=== PATIENT | male | born 1960 | race Caucasian/White ===

== ENCOUNTER 2020-04-02 08:33 | Outpatient (REF) | payer MEDICARE, MEDICAID, SELFPAY ==
--- NOTE | 2020-04-02 | US_ITS ---
EXAMINATION: US ABDOMEN COMPLETE CLINICAL INFORMATION: Right upper quadrant pain. COMPARISON: MR abdomen without and with contrast dated 07/29/2017. CT abdomen and pelvis with intravenous contrast only dated 07/17/2017. Ultrasound abdomen complete dated 07/17/2017 and 07/24/2016. TECHNIQUE: Real-time imaging of the abdominal viscera. FINDINGS: PANCREAS: Most of the pancreas is obscured by overlying gas. ABDOMINAL AORTA: The proximal, mid, and distal segments are normal in caliber. There is atherosclerotic plaque seen in the abdominal aorta. INFERIOR VENA CAVA: Visualized portions are normal. LIVER: The liver is normal in size. The liver contour is normal. There is increased liver echogenicity. No focal hepatic lesion. There is no intrahepatic biliary duct dilatation seen. GALLBLADDER: Gallbladder wall thickness measures 0.2 cm. The gallbladder is physiologically distended without evidence of stones, sludge, polyps, wall thickening or pericholecystic fluid. COMMON BILE DUCT: Normal in caliber measuring 0.4 cm in diameter. 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 No hydronephrosis. No renal calculi or focal parenchymal lesions. The kidney measures 11.8 cm in maximum dimension. LEFT KIDNEY: No hydronephrosis. No renal calculi or focal parenchymal lesions. The kidney measures 12.8 cm in maximum dimension. SPLEEN: Normal. The spleen measures 12.3 cm in maximum dimension. FREE FLUID: None. IMPRESSION: 1. Hepatic steatosis without focal lesion. 2. 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 3. Small atherosclerotic plaque, abdominal aorta, without aneurysm.
== END 2020-04-02 08:34 | disposition home or self-care (01) ==
LOC: HO.US 08:33
PROVIDERS: PCP Pediatrics; Visit Provider Internal Medicine
DX: R10.11 Right upper quadrant pain (principal)
CPT/HCPCS: 76700

== ENCOUNTER 2020-06-29 23:03 | Emergency (ER) | payer MEDICARE, MEDICAID, SELFPAY ==
[2020-06-29 23:19] VITALS: BP 139/82; PULSE 92; RESP 16; TEMP 36.6; O2SAT 96; BMI 29.0
[2020-06-30 00:19] LABS: MANUAL DIFF FLAG NO
[2020-06-30 00:20] LABS: Basophils Percent Auto 0.5 % (0-2); Eosinophils Absolute Auto 0.2 X10*3/uL (0.0-0.4); Hematocrit 40.3 % (42-52); Hemoglobin 13.6 g/dl (14.0-18.0); Imm Gran Abs Auto 0.06 X10*3/uL (0.00-0.03); Imm Gran Pct Auto 0.8 % (0.0-0.4); Lymphocytes Absolute Auto 1.9 X10*3/uL (1.2-4.9); Lymphocytes Percent Auto 25.4 % (20-40); Mean Corpuscular HGB Conc 33.7 g/dl (31.0-36.0); Mean Corpuscular Hemoglobin 29.6 pg (27.0-33.0); Mean Corpuscular Volume 87.6 fL (80-98); Mean Platelet Volume 10.5 fL (9.4-12.4); Monocytes Absolute Auto 0.7 X10*3/uL (0.1-1.2); Monocytes Percent Auto 9.6 % (2-11); Neutrophils Absolute Auto 4.4 X10*3/uL (2.0-8.3); Neutrophils Percent Auto 60.7 % (45-73); Platelet Count 273 X10*3/uL (160-400); Red Cell Distribution Width 12.9 % (11.0-16.0); White Blood Count 7.3 X10*3/uL (4.8-10.8)
[2020-06-30 00:43] LABS: Anion Gap 13 (12-20); Blood Urea Nitrogen 22 mg/dL (9-16); Calcium 8.6 mg/dL (8.4-10.2); Carbon Dioxide 23 mmol/L (22-29); Chloride 108 mmol/L (96-108); Estimated Glomerular Filt Rate > 60; Glucose Random 193 mg/dL (60-115); Potassium 3.9 mmol/l (3.3-5.1); Sodium 140 mmol/L (135-145)
[2020-06-30 01:48] VITALS: BP 142/88; PULSE 76; RESP 16; TEMP 36.8; O2SAT 95
--- NOTE | 2020-06-30 01:49 | PC.NURSE ---
Pt ambulating from the waiting room to [facility] with a steady but slow gait. Pt is CAOx4, speaking full sentences, reports swelling and itching to left calf beginning Thursday with redness to posterior left calf starting Thursday. Pt using OTC creams with some relief. Swelling noted to extend down leg into ankle, +CMS. Pt denies pain, denies chance of insect bite, denies history of DVTs, denies fever. VSS. Awaiting primary MD hammonds. Labs obtained in Triage. Continue to monitor.
--- NOTE | 2020-06-30 02:25 | ED_ITS ---
HPI - General Adult General Chief complaint: General Medical Stated complaint: SWOLLEN LEFT LEG Time Seen by Provider: 06/30/20 02:25 Source: patient Mode of arrival: ambulatory History of Present Illness HPI narrative: Left lower leg swelling with rash to the posterior aspect of the lower and denies any fevers, shortness of breath, chest pain/palpitations. Related Data Previous Rx's Medication Instructions Recorded cephalexin 500 mg PO Q12H 5 Days #10 cap 06/30/20 Allergies Allergy/AdvReac Type Severity Reaction Status Date / Time No Known Allergies Allergy Unknown Verified 06/29/20 23:18 Review of Systems Review of Systems: Pertinent positives and negatives as stated in HPI and 10 review of systems is otherwise negative. [facility] Past Medical History Source: nursing notes reviewed Medical History Arthritis FH: total knee replacement High cholesterol Hypertension Social History Social History Advance Directives: No Advance Directives Information Provided: No Physical Exam Vital Signs: Vital Signs: Last Vital Signs Temp 98.5 F 06/30/20 04:00 Pulse 67 06/30/20 04:00 Resp 16 06/30/20 04:00 BP 143/86 H 06/30/20 04:00 Pulse Ox 95 06/30/20 04:00 Body Mass Index 29.0 VITAL SIGNS: Reviewed. GENERAL: Well developed, well nourished, in no acute distress. OROPHARYNX: no oral lesions noted, posterior pharynx clear and non-erythematous without noted tonsillar enlargement/erythema/exudates NECK: Supple, no adenopathy LUNGS: Normal breath sounds. No adventitious sounds or accessory muscle use. SpO2<95> CARDIOVASCULAR: Regular rate and rhythm without noted murmurs, no JVD or lower extremity edema. ABDOMEN: Soft, non-tender, non-distended with bowel sounds. No rigidity. No guarding. No palpable masses or hernias noted LEFT LOWER EXTREMITY: Noted swelling to the distal portion of the left lower extremity with good pulses and sensation, capillary refill less than 3 seconds and a localized rash to the calf area without erythematous streaking, induration, and no palpable cords. NEUROLOGIC: Alert and oriented x 4. Course Course Course Narrative: This is a 60-year-old male with history and clinical pre sentation concerning for possible DVT given the unilateral leg swelling. Review of all lab work and investigations negative for any acute findings and venous duplex is negative for any acute findings to suggest DVT. Patient received initial cephalexin and will be discharged home with a prescription for remainder course and instructed to follow up with the primary care provider for further outpatient evaluation and management. Medical Decision Making Lab Data Result diagrams: 06/30/20 00:12 06/30/20 00:12 Labs: Lab Results 06/30/20 06/30/20 Range/Units 00:12 00:12 WBC 7.3 (4.8-10.8) X10*3/uL RBC 4.60 (4.60-5.80) X10*6/uL Hgb 13.6 L (14.0-18.0) g/dl Hct 40.3 L (42-52) % MCV 87.6 (80-98) fL MCH 29.6 (27.0-33.0) pg MCHC 33.7 (31.0-36.0) g/dl RDW 12.9 (11.0-16.0) % Plt Count 273 (160-400) X10*3/uL MPV 10.5 (9.4-12.4) fL Immature Gran % (Auto) 0.8 H (0.0-0.4) % Neut % (Auto) 60.7 (45-73) % Lymph % (Auto) 25.4 (20-40) % [place] % (Auto) 9.6 (2-11) % Eos % (Auto) 3.0 (0-4) % Baso % (Auto) 0.5 (0-2) % Lymph # (Auto) 1.9 (1.2-4.9) X10*3/uL [place] # (Auto) 0.7 (0.1-1.2) X10*3/uL Eos # (Auto) 0.2 (0.0-0.4) X10*3/uL Baso # (Auto) 0.0 (0.0-0.2) X10*3/uL Abs Immat Gran (auto) 0.06 H (0.00-0.03) X10*3/uL Absolute Neuts (auto) 4.4 (2.0-8.3) X10*3/uL Absolute Nucleated RBC 0.000 (0.0-0.012) X10*3/uL Nucleated RBC % (auto) 0.0 (0.0-0.2) /100WBC Sodium 140 (135-145) mmol/L Potassium 3.9 (3.3-5.1) mmol/l Chloride 108 (96-108) mmol/L Carbon Dioxide 23 (22-29) mmol/L Anion Gap 13 (12-20) BUN 22 H (9-16) mg/dL Creatinine 1.06 (0.5-1.4) mg/dL Estim Creat Clear Calc 92.0 Estimated GFR > 60 Random Glucose 193 H (60-115) mg/dL Calcium 8.6 (8.4-10.2) mg/dL Discharge Plan Discharge Clinical Impression: Localized swelling of left lower extremity Patient Disposition: Home, Self-Care Instructions: Leg Edema (ED) Additional Instructions: 1. Please complete the entire course of antibiotics. 2. Please follow-up with your primary care provider by calling the office in the morning to set up a follow-up appointment. Prescriptions: New cephalexin 500 mg capsule 500 mg PO Q12H 5 Days Qty: 10 RF: 0 Referrals: Physician,Unknown [Primary Care Provider] - 2 days (Re-evaluation of left lower leg)
--- NOTE | 2020-06-30 02:27 | US_ITS ---
EXAMINATION: US VENOUS ULTRASOUND WITH DOPPLER LOWER EXTREMITY, LEFT CLINICAL INFORMATION: Swelling COMPARISON: None TECHNIQUE: Ultrasound of the deep veins is performed from the hip to the calf with compression sonography and color and pulse Doppler assessment. Spectral analysis with color-flow imaging is performed. FINDINGS: There is normal venous compression and respiratory variation and augmented flow. The visualized common femoral vein, superficial femoral vein, profunda femoral vein, popliteal vein, and the trifurcation region shows no evidence of deep venous thrombosis. There is no significant popliteal fossa cyst. A 0.8 cm (short axis) lymph node is present in the left inguinal region. Significant subcutaneous edema is present in the calf. If the patient's symptoms persist, followup ultrasound in 5 days 7 days might be of value to exclude proximal propagation from a non-visualized calf vein. US/US venous duplex LE IMPRESSION: No DVT demonstrated in the left lower extremity.
--- NOTE | 2020-06-30 02:57 | PC.NURSE ---
Pt off to U/S on hospital bed.
--- NOTE | 2020-06-30 03:15 | PC.NURSE ---
Pt returns from U/S without incident.
[2020-06-30] MEDS: cephALEXin 500 MG CAPSULE PO (03:58)
--- NOTE | 2020-06-30 03:59 | PC.NURSE ---
Pt medicated per AUG. VSS. Awaiting DC paperwork.
[2020-06-30 04:00] VITALS: BP 143/86; PULSE 67; RESP 16; TEMP 36.9; O2SAT 95
== END 2020-06-30 05:32 | disposition home or self-care (01) ==
PROVIDERS: Emergency Provider Student in an Organized Health Care Education/Training Program
DX: R60.0 Localized edema (principal)
CPT/HCPCS: 36415; 80048; 85025; 93971; 99284

== ENCOUNTER 2020-10-05 10:53 | Outpatient (REF) | payer MEDICARE, MEDICAID, SELFPAY ==
[2020-10-05 11:41] LABS: MANUAL DIFF FLAG NO
[2020-10-05 11:51] LABS: Basophils Absolute Auto 0.1 X10*3/uL (0.0-0.2); Basophils Percent Auto 0.6 % (0-2); Eosinophils Absolute Auto 0.1 X10*3/uL (0.0-0.4); Eosinophils Percent Auto 1.3 % (0-4); Hematocrit 45.7 % (42-52); Hemoglobin 15.1 g/dl (14.0-18.0); Imm Gran Abs Auto 0.05 X10*3/uL (0.00-0.03); Imm Gran Pct Auto 0.6 % (0.0-0.4); Lymphocytes Absolute Auto 1.6 X10*3/uL (1.2-4.9); Mean Corpuscular Hemoglobin 28.4 pg (27.0-33.0); Mean Corpuscular Volume 85.9 fL (80-98); Mean Platelet Volume 10.9 fL (9.4-12.4); Monocytes Absolute Auto 0.5 X10*3/uL (0.1-1.2); Monocytes Percent Auto 5.9 % (2-11); Neutrophils Absolute Auto 6.2 X10*3/uL (2.0-8.3); Neutrophils Percent Auto 72.6 % (45-73); Platelet Count 280 X10*3/uL (160-400); Red Blood Count 5.32 X10*6/uL (4.60-5.80); Red Cell Distribution Width 12.8 % (11.0-16.0); White Blood Count 8.5 X10*3/uL (4.8-10.8)
[2020-10-05 11:59] LABS: Glucose Urine UA NEG (NEG); Leukocyte Esterase Urine NEG (NEG); Nitrite Urine NEG (NEG); Specific Gravity - Urine 1.025 (1.005-1.025); Urine Blood NEG (NEG); Urine Ketones NEG (NEG); Urine Protein NEG (NEG-TRACE)
[2020-10-05 12:01] LABS: Appearance Urine CLEAR; Color Urine YELLOW
[2020-10-05 12:17] LABS: RBC Urine 0-2 /HPF (0); Squamous Epithelial Cell Urine TRACE /LPF; WBC Urine 0 /HPF (0-4)
[2020-10-05 12:18] LABS: Mucus Urine 1+ /LPF
[2020-10-05 12:36] LABS: Alanine Aminotransferase 46 U/L (0-40); Albumin Level 4.4 g/dL (3.5-5.0); Alkaline Phosphatase 95 U/L (39-117); Anion Gap 13 (12-20); Aspartate Amino Transferase 31 U/L (5-37); Bilirubin Total 0.7 mg/dL (0.0-1.0); Blood Urea Nitrogen 20 mg/dL (9-16); Calcium 9.6 mg/dL (8.4-10.2); Carbon Dioxide 24 mmol/L (22-29); Chloride 107 mmol/L (96-108); Cholesterol 230 mg/dL; Estimated Glomerular Filt Rate > 60; Glucose Random 111 mg/dL (60-115); HDL Cholesterol 49 mg/dL; LDL Cholesterol Calculated 152 mg/dl; Potassium 4.4 mmol/L (3.3-5.1); Sodium 140 mmol/L (135-145); Total Protein 7.7 g/dL (6.5-8.0); Triglycerides 147 mg/dL
[2020-10-05 12:37] LABS: TSH reflex Free T4 1.01 uIU/mL (0.32-4.0); Vitamin D 25-OH Total 22.7 ng/mL (>30)
[2020-10-05 13:02] LABS: Vitamin B12 690 pg/mL (200-900)
== END 2020-10-05 10:54 | disposition home or self-care (01) ==
LOC: HO.LAB 10:53
PROVIDERS: PCP Pediatrics; Visit Provider Pediatrics
DX: E11.9 Type 2 diabetes mellitus without complications (principal); E78.00 Pure hypercholesterolemia, unspecified; I10 Essential (primary) hypertension
CPT/HCPCS: 36415; 80053; 80061; 81001; 82043; 82306; 82550; 82607; 84443; 85025

== ENCOUNTER 2020-12-17 18:27 | Inpatient (IN) | payer MEDICARE, MEDICAID, SELFPAY ==
[2020-12-17] VITALS (7 sets, daily range): BP systolic 110–126; BP diastolic 65–76; PULSE 90–103; RESP 16–34; TEMP 36.1–37.2; O2SAT 92–96; BMI 29.0
--- NOTE | ~2020-12-17 | CT_ITS ---
EXAMINATION: CT CHEST WITHOUT CONTRAST CLINICAL INFORMATION: Pneumonia COMPARISON: Pulmonary perfusion exam performed same day. Chest x-ray 12/17/2020 TECHNIQUE: Multidetector volumetric CT imaging of the chest was done. Axial MIP volume rendering provided. Sagittal and coronal reformatted images were obtained. This CT examination was performed using dose optimization techniques as appropriate, variously including the following: *Automated exposure control *Adjustment of mA and/or kV according to patient size (this includes techniques or standardized protocols for targeted exams where dose is matched to indication/reason for exam; i.e. extremities or head) *Use of iterative reconstruction technique DLP: 228 mGy-cm FINDINGS: LUNGS: There is bibasilar linear opacities as well as some linear opacity in the lingula compatible discoid atelectasis or scarring. Lungs otherwise clear. Airways clear. MEDIASTINUM: Minimal calcification of the aorta. Heart size within normal limits. No pericardial effusion. Lymph nodes normal. Thoracic inlet normal. PLEURA: There is no pleural effusion. No pleural mass or thickening. AXILLA: No lymphadenopathy. UPPER ABDOMEN: Unremarkable. OSSEOUS STRUCTURES: Unremarkable. CT/CT chest wo con IMPRESSION: Discoid atelectasis bilaterally. No findings of pneumonia
--- NOTE | ~2020-12-17 | XR_ITS ---
EXAMINATION: XR CHEST CLINICAL INFORMATION: Shortness of breath. COMPARISON: X-ray 07/17/2017 TECHNIQUE: Frontal view of the chest was obtained. FINDINGS: Normal heart size. Mediastinal silhouette is normal. Hazy opacity in the right lower lung, raising the possibility of developing infiltrate. No pleural effusion, edema, or pneumothorax. XR/XR chest 1V IMPRESSION: Hazy right lower lung opacification, raising the possibility of developing infiltrate from infectious or inflammatory process.
--- NOTE | ~2020-12-17 | CT_ITS ---
EXAMINATION: CT ABDOMEN AND PELVIS WITHOUT CONTRAST CLINICAL INFORMATION: Anemia COMPARISON: Previous abdominal ultrasound March [address] of the abdomen and pelvis and MRI of the abdomen July 2017 TECHNIQUE: Multidetector volumetric imaging was performed from the superior aspect of the liver through the pubic symphysis. Sagittal and coronal reformatted images were obtained on the technologist's workstation. This CT examination was performed using dose optimization techniques as appropriate, variously including the following: *Automated exposure control *Adjustment of mA and/or kV according to patient size (this includes techniques or standardized protocols for targeted exams where dose is matched to indication/reason for exam; i.e. extremities or head) *Use of iterative reconstruction technique DLP: 624 mGy-cm FINDINGS: LUNG BASES: The visualized lung bases are unremarkable. LIVER, GALLBLADDER, AND BILIARY TREE: The liver is normal in size, shape, and attenuation. No focal hepatic lesion or biliary ductal dilatation is present. The gallbladder is contracted. PANCREAS: Unremarkable. SPLEEN: The spleen is enlarged and measures 15.5 cm in length. ADRENAL GLANDS: Unremarkable. KIDNEYS AND URETERS: The kidneys are normal in size, shape, and attenuation. No hydronephrosis, hydroureter, or calculi seen. No perinephric stranding. BLADDER: Not optimally distended. GASTROINTESTINAL TRACT: There is diverticulosis of the colon. Small and large bowel is otherwise unremarkable. The appendix is normal. Comment is normal. ABDOMINAL WALL: There is evidence of previous ventral hernia repair with mesh. There are ventral and umbilical hernias containing fat superficial to the mesh.. There is a small right inguinal hernia containing fat. LYMPH NODES: Normal. VASCULAR: Unremarkable. PELVIC VISCERA: Unremarkable. OSSEOUS STRUCTURES: There are degenerative changes of the spine and hip joints. CT/CT abdomen pelvis wo con IMPRESSION: Diverticulosis of the colon. No evidence of diverticulitis. Evidence of previous ventral hernia repair with mesh. There are small ventral and umbilical hernias containing fat and fascial to the mesh.
--- NOTE | ~2020-12-17 | NM_ITS ---
EXAMINATION: PULMONARY PERFUSION STUDY CLINICAL INFORMATION: Shortness of breath, positive d-dimer. COMPARISON: No previous lung scan is available for comparison. Neck a radiograph the chest dated 12/17/2020 is available for comparison. TECHNIQUE: Following the intravenous injection of 4.0 mCi Tc-99m MAA, an 8-view perfusion study was performed using a gamma scintillation camera. FINDINGS: No segmental perfusion defects are present. There is homogeneous distribution of activity bilaterally. There are no focal anatomic appearing perfusion defects present. NM/NM pul perfusion IMPRESSION: Normal radionuclide lung perfusion scan.
--- NOTE | 2020-12-17 18:53 | ECG_ITS ---
Test Reason : SOB Blood Pressure : / mmHG Vent. Rate : 092 BPM Atrial Rate : 092 BPM P-R Int : 152 ms QRS Dur : 092 ms QT Int : 340 ms P-R-T Axes : 026 -09 024 degrees QTc Int : 420 ms Normal sinus rhythm Moderate voltage criteria for LVH, may be normal variant Borderline ECG When compared with ECG of 17-JUL-2017 21:28, No significant change was found Referred By: Dominik Georges Electronically Signed By:SAUMYA DIGGS
--- NOTE | 2020-12-17 18:55 | ED.SOB ---
HPI - SOB/Dyspnea General Chief Complaint: Dyspnea Stated Complaint: SOB Time Seen by Provider: 12/17/20 18:52 Source: patient and family ( Daughter) Mode of arrival: ambulatory Limitations: no limitations History of Present Illness HPI Narrative: 60-year-old male came in for evaluation coughing and shortness of breath. Symptoms started 2 weeks ago, patient was seen by PCP tested negative for COVID, patient declined any fever chills. Productive cough with yellow sputum, patient declined history of smoking or any history of asthma / COPD. Today patient after having a strong boat of coughing he passed out. No chest pain, no headache, no recent travel, no lower extremities tenderness, no lower extremities swelling. Related Data Previous Rx's Medication Instructions Recorded cephalexin 500 mg PO Q12H 5 Days #10 cap 06/30/20 Allergies Allergy/AdvReac Type Severity Reaction Status Date / Time No Known Allergies Allergy Unknown Verified 06/29/20 23:18 Review of Systems Review of Systems: All other systems are reviewed and are negative Constitutional: Reports as per HPI and Reports no additional constitutional complaints Eyes: Reports as per HPI and Reports no additional eye complaints Reports system reviewed and no additional complaints, except as documented Cardiovascular: Reports as per HPI and Reports no additional cardiovascular complaints Respiratory: Reports as per HPI and Reports no additional respiratory complaints Gastrointestinal: Reports as per HPI and Reports no additional gastrointestinal complaints Genitourinary: Reports no additional female genitourinary complaints Musculoskeletal: Reports no additional musculoskeletal complaints Skin/Breast: Reports system reviewed and no additional complaints, except as docu Psychiatric: Reports no additional psychiatric complaints Endocrine: Reports no additional endocrine complaints Hematologic/Lymphatic: Reports no additional hematologic/lymphatic complaints Allergic/Immunologic: Reports no additional allergic/immunologic complaints Reports system reviewed and no additional complaints, except as documented and Reports Abnormal speech present [facility] Past Medical History Medical History Arthritis FH: total knee replacement High cholesterol Hypertension Social History Social History Advance Directives: No Advance Directives Information Provided: Yes Physical Exam Vital Signs: Vital Signs: Last Vital Signs Temp 98.9 F 12/17/20 18:30 Pulse 93 12/17/20 19:22 Resp 16 12/17/20 18:30 BP 119/76 12/17/20 18:30 Pulse Ox 92 12/17/20 18:30 Body Mass Index 29.0 vital signs have been reviewed as appeared to be correct. Blood pressure normal. Heart rate normal. Respiration rate normal. Temperature normal. Oxygen saturation normal. Appearance: Alert. Oriented X3. No acute distress. Head: Normal external exam. Normocephalic. Atraumatic. No Dutton signs noted. No raccoon eyes noted Eyes: PERRLA. EOMI. Conjunctiva and sclera normal. Eyelids normal. ENT: TM's Normal. Pharynx normal. Uvula midline. Moist mucous membranes. No trismus noted. No drooling noted. No muffled voice noted. Neck: Normal inspection. Neck supple. FROM. No adenopathy. Thyroid Normal. No meningeal signs. No neck mass noted. CVS: Normal heart rate and rhythm. Heart sound normal. No murmurs noted. Pulses normal throughout. Respiratory: No respiratory distress. Painless inspiration. Breath sounds normal. Mild expiratory wheezes, no rales, or rhonchi noted. Chest nontender. No accessory muscle usage noted or decreased air movement noted. Abdomen: Soft and nontender. Bowel sounds normal in all 4 quadrants. No distention noted. No organomegaly noted. No visible injury noted. Rectal exam: Brown stool negative for blood. Back: No CVA tenderness. Full range of motion noted. Skin: Skin warm and dry. Normal skin color. Normal skin turgor. No rashes/lesions/lacerations noted. Extremities: No lower extremity edema. Extremities exhibit normal range of motion. Extremities nontender. Neuro: Oriented X 3. No motor deficit. No sensory deficit. Reflexes normal. Course Course Course Narrative: Assessment and plan. 60-year-old male came in with 2 weeks of shortness of breath, patient has been treated for bronchitis, today patient describes 3 episodes of presyncopal episode, on the physical exam patient found to be severely anemic with no source of bleeding. Will give the patient 3 unit blood transfusion and admit the patient. at 8:35 pm x-ray is questioning right lower lobe pneumonia At this time infection is suspected ( blood culture, lactic acid was ordered), start the patient on ceftriaxone and Zithromax. MDM - SOB/Dyspnea Lab Data Attestation: I reviewed the patient's lab results. Result diagrams: 12/17/20 19:11 12/17/20 19:11 Labs: Lab Results 12/17/20 12/17/20 12/17/20 Range/Units 19:11 19:11 19:11 WBC 5.9 (4.8-10.8) X10*3/uL RBC 3.00 L D (4.60-5.80) X10*6/uL Hgb 8.7 L D (14.0-18.0) g/dl Hct 26.1 L D (42-52) % MCV 87.0 (80-98) fL MCH 29.0 (27.0-33.0) pg MCHC 33.3 (31.0-36.0) g/dl RDW 14.8 (11.0-16.0) % Plt Count 152 L D (160-400) X10*3/uL MPV 10.3 (9.4-12.4) fL Immature Gran % (Auto) 3.1 H (0.0-0.4) % Neut % (Auto) 56.5 (45-73) % Lymph % (Auto) 21.7 (20-40) % [place] % (Auto) 17.3 H (2-11) % Eos % (Auto) 1.2 (0-4) % Baso % (Auto) 0.2 (0-2) % Lymph # (Auto) 1.3 (1.2-4.9) X10*3/uL [place] # (Auto) 1.0 (0.1-1.2) X10*3/uL Eos # (Auto) 0.1 (0.0-0.4) X10*3/uL Baso # (Auto) 0.0 (0.0-0.2) X10*3/uL Abs Immat Gran (auto) 0.18 H (0.00-0.03) X10*3/uL Absolute Neuts (auto) 3.3 (2.0-8.3) X10*3/uL Absolute Nucleated RBC 0.000 (0.0-0.012) X10*3/uL Nucleated RBC % (auto) 0.0 (0.0-0.2) /100WBC Sodium 137 (135-145) mmol/L Potassium 4.2 (3.3-5.1) mmol/L Chloride 105 (96-108) mmol/L Carbon Dioxide 22 (22-29) mmol/L Anion Gap 14 (12-20) BUN 31 H D (9-16) mg/dL Creatinine 1.47 H (0.5-1.4) mg/dL Estim Creat Clear Calc 66.4 Estimated GFR 49 Random Glucose 124 H (60-115) mg/dL Calcium 8.7 D (8.4-10.2) mg/dL Total Bilirubin 1.8 H (0.0-1.0) mg/dL Direct Bilirubin 0.5 (0.0-0.5) mg/dL AST 31 (5-37) U/L ALT 35 (0-40) U/L Alkaline Phosphatase 82 (39-117) U/L Troponin I High Sens < 3.5 (<3.5-35.0) ng/L B-Natriuretic Peptide 32 (<100) pg/mL Total Protein 6.7 (6.5-8.0) g/dL Albumin 3.6 (3.5-5.0) g/dL Lipase 40 (8-78) U/L Stool Occult Blood (NEGATIVE) COVID-19 ([place]) (Negative) COVID-19 Clin Com 12/17/20 12/17/20 Range/Units 19:11 20:01 WBC (4.8-10.8) X10*3/uL RBC (4.60-5.80) X10*6/uL Hgb (14.0-18.0) g/dl Hct (42-52) % MCV (80-98) fL MCH (27.0-33.0) pg MCHC (31.0-36.0) g/dl RDW (11.0-16.0) % Plt Count (160-400) X10*3/uL MPV (9.4-12.4) fL Immature Gran % (Auto) (0.0-0.4) % Neut % (Auto) (45-73) % Lymph % (Auto) (20-40) % [place] % (Auto) (2-11) % Eos % (Auto) (0-4) % Baso % (Auto) (0-2) % Lymph # (Auto) (1.2-4.9) X10*3/uL [place] # (Auto) (0.1-1.2) X10*3/uL Eos # (Auto) (0.0-0.4) X10*3/uL Baso # (Auto) (0.0-0.2) X10*3/uL Abs Immat Gran (auto) (0.00-0.03) X10*3/uL Absolute Neuts (auto) (2.0-8.3) X10*3/uL Absolute Nucleated RBC (0.0-0.012) X10*3/uL Nucleated RBC % (auto) (0.0-0.2) /100WBC Sodium (135-145) mmol/L Potassium (3.3-5.1) mmol/L Chloride (96-108) mmol/L Carbon Dioxide (22-29) mmol/L Anion Gap (12-20) BUN (9-16) mg/dL Creatinine (0.5-1.4) mg/dL Estim Creat Clear Calc Estimated GFR Random Glucose (60-115) mg/dL Calcium (8.4-10.2) mg/dL Total Bilirubin (0.0-1.0) mg/dL Direct Bilirubin (0.0-0.5) mg/dL AST (5-37) U/L ALT (0-40) U/L Alkaline Phosphatase (39-117) U/L Troponin I High Sens (<3.5-35.0) ng/L B-Natriuretic Peptide (<100) pg/mL Total Protein (6.5-8.0) g/dL Albumin (3.5-5.0) g/dL Lipase (8-78) U/L Stool Occult Blood NEGATIVE (NEGATIVE) COVID-19 ([place]) Negative (Negative) COVID-19 Clin Com See Note Imaging Data Chest x-ray: Radiologist's impression: Hazy right lower lung opacification, raising the possibility of developing infiltrate from infectious or inflammatory process. ECG Data Interpretation: normal sinus rhythm at 92 beats per minute, LVH, left axis deviation, nonspecific T-wave inversion. Discharge Plan Discharge Prescriptions: No Action cephalexin 500 mg capsule 500 mg PO Q12H 5 Days Qty: 10 RF: 0
[2020-12-17] MEDS: methylPREDNISolone Sod Succ 125 MG/2 ML VIAL IVPUSH (19:14)
[2020-12-17 19:16] LABS: MANUAL DIFF FLAG NO
[2020-12-17 19:18] LABS: Basophils Percent Auto 0.2 % (0-2); Eosinophils Absolute Auto 0.1 X10*3/uL (0.0-0.4); Eosinophils Percent Auto 1.2 % (0-4); Hematocrit 26.1 % (42-52); Hemoglobin 8.7 g/dl (14.0-18.0); Imm Gran Abs Auto 0.18 X10*3/uL (0.00-0.03); Imm Gran Pct Auto 3.1 % (0.0-0.4); Lymphocytes Absolute Auto 1.3 X10*3/uL (1.2-4.9); Lymphocytes Percent Auto 21.7 % (20-40); Mean Corpuscular HGB Conc 33.3 g/dl (31.0-36.0); Mean Platelet Volume 10.3 fL (9.4-12.4); Monocytes Percent Auto 17.3 % (2-11); Neutrophils Absolute Auto 3.3 X10*3/uL (2.0-8.3); Neutrophils Percent Auto 56.5 % (45-73); Platelet Count 152 X10*3/uL (160-400); Red Cell Distribution Width 14.8 % (11.0-16.0); White Blood Count 5.9 X10*3/uL (4.8-10.8)
[2020-12-17] MEDS: Albuterol/Iprat 2.5/0.5MG 3 ML AMPUL.NEB INHALE (19:21)
[2020-12-17] MEDS: Albuterol Sulfate (0.083%) 2.5 MG/3 ML VIAL.NEB INHALE (19:21)
[2020-12-17 19:32] LABS: COVID-19 Test Negative (Negative)
[2020-12-17 19:48] LABS: Alanine Aminotransferase 35 U/L (0-40); Albumin Level 3.6 g/dL (3.5-5.0); Alkaline Phosphatase 82 U/L (39-117); Anion Gap 14 (12-20); Aspartate Amino Transferase 31 U/L (5-37); Bilirubin Direct 0.5 mg/dL (0.0-0.5); Bilirubin Total 1.8 mg/dL (0.0-1.0); Blood Urea Nitrogen 31 mg/dL (9-16); Calcium 8.7 mg/dL (8.4-10.2); Carbon Dioxide 22 mmol/L (22-29); Chloride 105 mmol/L (96-108); Creatinine Clr Calc Pharmacy 66.4; Estimated Glomerular Filt Rate 49; Glucose Random 124 mg/dL (60-115); Lipase 40 U/L (8-78); Potassium 4.2 mmol/L (3.3-5.1); Sodium 137 mmol/L (135-145); Total Protein 6.7 g/dL (6.5-8.0)
[2020-12-17 19:51] LABS: B Type Natriuretic Peptide 32 pg/mL (<100); Troponin-I High Sensitivity < 3.5 ng/L (<3.5-35.0)
[2020-12-17 20:06] LABS: OBS Int Ctl Valid YES; OBS1 NEGATIVE (NEGATIVE)
[2020-12-17] MEDS: Azithromycin 500 MG in 0.9 % Sodium Chloride 250 ML 125 MG IV (21:00)
[2020-12-17] MEDS: cefTRIAXone sodium 1 GM in 0.9 % Sodium Chloride 50 ML IV (21:00)
[2020-12-17] MEDS: 0.9 % Sodium Chloride 1,000 ML 250 ML IVCONT (21:01)
[2020-12-17 21:12] LABS: Lactic Acid 0.6 mmol/L (0.5-2.0)
--- NOTE | 2020-12-17 21:13 | P.HPHOSP_ITS ---
History of Present Illness Date of Service: 12/17/20 Chief Complaint: SOB 60-year-old male with a past medical history of hypertension, hyperlipidemia, arthritis presented to the hospital with a chief complaint of shortness of breath for 2 weeks. Patient reported that his shortness of breath has been gradually worsening over 2 weeks; complains of cough with Yellow sputum production; has seen the PCP as outpatient and was given cephalexin. Today patient mentioned that he had severe episode of cough followed by he felt like his Is going to Faint but did not lose consciousness. lowered himself to the ground; denies any fall or head strike. Denies any chest pain or palpitations. Denies any blood in the stool or vomiting. Denies any abdominal pain or urinary symptoms. Denies any toxic habits Review of all other systems is negative except mentioned above ER course: Per ER team patient on presentation was noted to be hypoxic to mid 80s; chest x- ray showed no acute findings; more on labs noted to have hemoglobin of 8.7 from 13.6 couple months ago; stool guaiac was negative. Being transfused 1 unit of blood for symptomatic anemia. EKG was nonischemic. Troponin negative. Admitted for further management. [facility] Medical History (Updated 12/27/20 @ 00:01 by Barney Kelly) Anemia Arthritis Depression Fatty liver High cholesterol Hypertension Surgical History (Updated 12/25/20 @ 12:33 by Marlen Virgen) History of total bilateral knee replacement History of umbilical hernia repair Hx of colonoscopy Hx of hernia repair Social History Household Members: Spouse and Family Housing: House Do you presently have visiting nurse or other home services: Yes Patient Tobacco Use Status: Never used Tobacco service: No Current occupational status: employed Meds Allergies Allergy/AdvReac Type Severity Reaction Status Date / Time No Known Allergies Allergy Unknown Verified 06/29/20 23:18 Active Medications: Current Medications Generic Name Dose Route Start Last Admin Trade Name Freq PRN Reason Stop Dose Admin Acetaminophen 650 mg 12/17/20 21:06 Acetaminophen 325 Mg Tablet PO Q6H PRN Pain, Mild (Pain Scale 1-3) Albuterol/Ipratropium 3 ml 12/17/20 21:06 Albuterol/Iprat 2.5/0.5mg 3 Ml Ampul.Neb INHALE RQ4H PRN Shortness of Breath/Wheezing Azithromycin 500 mg/ Sodium 250 mls @ 125 mls/hr 12/17/20 20:29 12/17/20 21:00 Chloride IV 12/17/20 22:28 125 mls/hr ONCE ONE Administration Sodium Chloride 1,000 mls @ 250 mls/hr 12/17/20 20:45 12/17/20 21:01 Ns IVCONT 12/18/20 00:44 250 mls/hr .Q4H SARA Administration Dextrose/Sodium Chloride 1,000 mls @ 100 mls/hr 12/17/20 21:15 D51/2ns IVCONT .Q10H SARA Melatonin 6 mg 12/17/20 21:06 Melatonin 3 Mg Tablet PO BEDTIME PRN Insomnia Senna 17.2 mg 12/17/20 21:06 Sennosides 8.6 Mg Tablet PO BEDTIME PRN Constipation Sodium Chloride 3 ml 12/18/20 00:00 0.9 % Sodium Chloride Flush 3 Ml Syringe IVFLUSH QSHIFT [facility] Home Medications Medication Instructions Recorded Confirmed Last Taken Type amlodipine 1 tab PO DAILY 12/17/20 12/25/20 12/31/20 History aspirin 1 tab PO DAILY 12/17/20 12/25/20 Unknown History benazepril 1 tab PO DAILY 12/17/20 12/25/20 Unknown History tamsulosin 2 cap PO DAILY 12/17/20 12/25/20 Unknown History tramadol 1 tab PO TID PRN 12/17/20 12/25/20 Unknown History Physical Exam Vital Signs and Narrative: Vital Signs: Last Vital Signs Temp 98.9 F 12/17/20 18:30 Pulse 93 12/17/20 19:22 Resp 16 12/17/20 18:30 BP 119/76 12/17/20 18:30 Pulse Ox 92 12/17/20 18:30 Body Mass Index 29.0 Gen: Appears be in no acute distress HEENT: NCAT, Moist mucosa. Pulmonary: Vesicular breath sounds, fair air entry CVS: Normal S1-S2 Abdomen: BS+, Soft, Nontender Extremities: Warm well perfused Neuro: Alert and awake. Results Labs CBC and Chem 7: 12/19/20 06:43 12/19/20 06:43 Labs: Laboratory Results - last 24 hr 12/17/20 12/17/20 12/17/20 19:11 19:11 19:11 MCV 87.0 MCH 29.0 MCHC 33.3 RDW 14.8 Plt Count 152 L D MPV 10.3 Immature Gran % (Auto) 3.1 H Neut % (Auto) 56.5 Lymph % (Auto) 21.7 Cecil % (Auto) 17.3 H Eos % (Auto) 1.2 Baso % (Auto) 0.2 Lymph # (Auto) 1.3 Cecil # (Auto) 1.0 Eos # (Auto) 0.1 Baso # (Auto) 0.0 Abs Immat Gran (auto) 0.18 H Absolute Neuts (auto) 3.3 Absolute Nucleated RBC 0.000 Nucleated RBC % (auto) 0.0 Anion Gap 14 Estim Creat Clear Calc 66.4 Estimated GFR 49 Random Glucose 124 H Lactic Acid Calcium 8.7 D Total Bilirubin 1.8 H Direct Bilirubin 0.5 AST 31 ALT 35 Alkaline Phosphatase 82 Troponin I High Sens < 3.5 B-Natriuretic Peptide 32 Total Protein 6.7 Albumin 3.6 Lipase 40 Stool Occult Blood COVID-19 (ANNABELLE) COVID-Weight Wins Com Crossmatch 12/17/20 12/17/20 12/17/20 19:11 20:01 20:50 MCV MCH MCHC RDW Plt Count MPV Immature Gran % (Auto) Neut % (Auto) Lymph % (Auto) Cecil % (Auto) Eos % (Auto) Baso % (Auto) Lymph # (Auto) Cecil # (Auto) Eos # (Auto) Baso # (Auto) Abs Immat Gran (auto) Absolute Neuts (auto) Absolute Nucleated RBC Nucleated RBC % (auto) Anion Gap Estim Creat Clear Calc Estimated GFR Random Glucose Lactic Acid 0.6 Calcium Total Bilirubin Direct Bilirubin AST ALT Alkaline Phosphatase Troponin I High Sens B-Natriuretic Peptide Total Protein Albumin Lipase Stool Occult Blood NEGATIVE COVID-19 (ANNABELLE) Negative COVID-Weight Wins Com See Note Crossmatch 12/17/20 20:57 MCV MCH MCHC RDW Plt Count MPV Immature Gran % (Auto) Neut % (Auto) Lymph % (Auto) Cecil % (Auto) Eos % (Auto) Baso % (Auto) Lymph # (Auto) Cecil # (Auto) Eos # (Auto) Baso # (Auto) Abs Immat Gran (auto) Absolute Neuts (auto) Absolute Nucleated RBC Nucleated RBC % (auto) Anion Gap Estim Creat Clear Calc Estimated GFR Random Glucose Lactic Acid Calcium Total Bilirubin Direct Bilirubin AST ALT Alkaline Phosphatase Troponin I High Sens B-Natriuretic Peptide Total Protein Albumin Lipase Stool Occult Blood COVID-19 (ANNABELLE) COVID-19 Clin Com Crossmatch See Detail Imaging Radiologist's Impressions: Impressions Chest X-Ray 12/17/20 18:53 IMPRESSION: Hazy right lower lung opacification, raising the possibility of developing infiltrate from infectious or inflammatory process. Assessment and Plan (1) Anemia: Qualifiers: Anemia type: unspecified type Qualified Code(s): D64.9 - Anemia, unspecified Status: Acute 60-year-old male with a past medical history of hypertension, hyperlipidemia, arthritis presented to the hospital with a chief complaint of shortness of breath/dyspnea on exertion/cough with sputum production; noted to have anemia/pneumonia /hypoxia. Acute hypoxic respiratory failure: Likely in the setting of pneumonia / anemia. Supplemental oxygen. Will also obtain D-dimer. COVID-19 negative. Pneumonia: Chest x-ray showed patchy consolidation;Continue ceftriaxone and azithromycin. Follow up cultures. cough suppressants p.r.n. anemia: Patient is on aspirin at home. But stool guaiac is negative. Hold aspirin for the time being. Patient being transfused blood in the ER. Patient hemoglobin dropped from 13.6-8.7 in couple months. Patient denies any obvious signs of bleeding. Will obtain iron panel, folate, B12 hematology consult near syncope: EKG nonischemic. Initial troponin negative. Will cycle enzymes. Will monitor on telemetry. Fall precautions. Orthostatic vitals. Gentle hydration. Mild ELA: Gentle IV fluids. History of hypertension: Hold home antihypertensives given blood pressure is on the soft side. Also ELA. DVT prophylaxis: SCD boots Code status: Full code Quality Stroke Does the patient have a stroke diagnosis?: No VTE Prior VTE?: No VTE Risk Level:: Medical - moderate - high VTE Device Contraindication: N/A - Device Ordered VTE Drug Contraindication: Treatment Not Indicated
--- NOTE | 2020-12-17 21:17 | PC.NURSE ---
pt resting comfortably, in no distress with an occassional non productive cough. pt speaking in full sentences. spo2 93-95% on room air. pt awake and alert, oriented and aware of the plan for blood transfusion and admission. gave permission for pt to eat a meal that was brought from home. pt eating, no complaint of nausea, vomiting or diarrhea. no hx of dark stools.
[2020-12-17 21:55] LABS: D Dimer 567 NG/ML
[2020-12-17 21:55] LABS: Glucose Urine UA NEG (NEG); Leukocyte Esterase Urine NEG (NEG); Nitrite Urine NEG (NEG); Specific Gravity - Urine 1.015 (1.005-1.025); Urine Blood NEG (NEG); Urine Ketones NEG (NEG); Urine Protein NEG (NEG-TRACE)
[2020-12-17 21:56] LABS: Appearance Urine CLEAR; Color Urine YELLOW
[2020-12-17 22:05] LABS: Bacteria Urine TRACE /LPF; Mucus Urine TRACE /LPF; RBC Urine 0-2 /HPF (0); Squamous Epithelial Cell Urine TRACE /LPF; WBC Urine 0-2 /HPF (0-4)
[2020-12-17 22:12] LABS: Troponin-I High Sensitivity < 3.5 ng/L (<3.5-35.0)
[2020-12-18] VITALS (9 sets, daily range): BP systolic 106–140; BP diastolic 63–85; PULSE 75–98; RESP 16–20; TEMP 35.9–36.7; O2SAT 93–98
[2020-12-18] MEDS: Dextrose 5 % and 0.45 % NaCl 1,000 ML 100 ML IVCONT (00:21)
[2020-12-18] MEDS: 0.9 % Sodium Chloride Flush 3 ML SYRINGE IVFLUSH ×2 (00:22→23:33)
[2020-12-18 06:07] LABS: MANUAL DIFF FLAG NO
[2020-12-18 06:08] LABS: Basophils Percent Auto 0.1 % (0-2); Hematocrit 32.1 % (42-52); Hemoglobin 10.9 g/dl (14.0-18.0); Imm Gran Abs Auto 0.16 X10*3/uL (0.00-0.03); Imm Gran Pct Auto 2.3 % (0.0-0.4); Lymphocytes Absolute Auto 0.8 X10*3/uL (1.2-4.9); Lymphocytes Percent Auto 11.5 % (20-40); Mean Corpuscular Hemoglobin 30.1 pg (27.0-33.0); Mean Corpuscular Volume 88.7 fL (80-98); Mean Platelet Volume 10.7 fL (9.4-12.4); Monocytes Absolute Auto 0.3 X10*3/uL (0.1-1.2); Monocytes Percent Auto 4.8 % (2-11); Neutrophils Absolute Auto 5.8 X10*3/uL (2.0-8.3); Neutrophils Percent Auto 81.3 % (45-73); Platelet Count 172 X10*3/uL (160-400); Red Blood Count 3.62 X10*6/uL (4.60-5.80); Red Cell Distribution Width 15.1 % (11.0-16.0); White Blood Count 7.1 X10*3/uL (4.8-10.8)
[2020-12-18 06:43] LABS: Iron 145 mcg/dL (45-160); Percent Iron Saturation 59 % (15-50); Total Iron Binding Capacity 247 mcg/dL (228-428); Unsaturated Iron Binding 102 ug/dL
[2020-12-18 06:45] LABS: Anion Gap 15 (12-20); Blood Urea Nitrogen 26 mg/dL (9-16); Calcium 8.8 mg/dL (8.4-10.2); Carbon Dioxide 21 mmol/L (22-29); Chloride 106 mmol/L (96-108); Creatinine Clr Calc Pharmacy 84.8; Estimated Glomerular Filt Rate > 60; Glucose Random 337 mg/dL (60-115); Magnesium 2.5 mg/dL (1.6-2.6); Potassium 4.7 mmol/L (3.3-5.1); Sodium 137 mmol/L (135-145)
[2020-12-18] MEDS: Tamsulosin HCL 0.4 MG CAPSULE 0.8 MG PO (08:12)
[2020-12-18 08:35] LABS: Folate 16.3 ng/mL (> or = 4.0); Vitamin B12 821 pg/mL (200-900)
[2020-12-18 09:17] LABS: Immature Retic Fraction 22.7 % (2.3-13.4); Retic HGB Equivalent 29.7 pg (30.0-35.0); Reticulocyte Percent 4.2 % (0.5-1.8); Reticulocytes Absolute 0.154 X10*6/uL (0.026-0.095)
[2020-12-18 09:27] LABS: Alanine Aminotransferase 36 U/L (0-40); Albumin Level 3.6 g/dL (3.5-5.0); Alkaline Phosphatase 88 U/L (39-117); Aspartate Amino Transferase 27 U/L (5-37); Bilirubin Direct 0.6 mg/dL (0.0-0.5); Lactate Dehydrogenase 492 U/L (118-273); Total Protein 7.1 g/dL (6.5-8.0)
--- NOTE | 2020-12-18 10:22 | MHC.CM.PN ---
PATIENT LIVES WITH HIS AND DAUGHTER. HE IS FULLY INDEPENDENT WITH ADLS. HIS TRUCK IS IN [facility] [address]. PATIENT IS HOPING TO BE ABLE TO RETURN HOME SOON POSSIBLE. CASE MANAGEMENT FOLLOWING IMM 12/18 IN CHART
--- NOTE | 2020-12-18 11:52 | PM.IMPN ---
Subjective Subjective Date of Service: 12/18/20 Interval History: Follow up anemia and pna no sob feeling better Physical Exam Vital Signs: Vital Signs: Last Vital Signs Temp 97.7 F 12/18/20 11:31 Pulse 88 12/18/20 11:31 Resp 18 12/18/20 11:31 BP 130/76 12/18/20 11:31 Pulse Ox 94 12/18/20 11:31 Body Mass Index 29.0 Appearing in no acute distress lung sounds are clear to auscultation heart regular rate rhythm, clear S1, S2 positive bowel sounds, abdomen is soft, nontender neuro patient is alert x3, no focal deficits Objective Data Current Medications Generic Name Dose Route Start Last Admin Trade Name Freq PRN Reason Stop Dose Admin Acetaminophen 650 mg 12/17/20 21:06 Acetaminophen 325 Mg Tablet PO Q6H PRN Pain, Mild (Pain Scale 1-3) Albuterol/Ipratropium 3 ml 12/17/20 21:06 Albuterol/Iprat 2.5/0.5mg 3 Ml Ampul.Neb INHALE RQ4H PRN Shortness of Breath/Wheezing Azithromycin 500 mg 12/17/20 21:30 12/17/20 23:20 Azithromycin 500 Mg Tablet PO Not Given Q24H SARA Benzonatate 100 mg 12/17/20 21:21 Benzonatate 100 Mg Capsule PO TID PRN Cough Dextrose/Sodium Chloride 1,000 mls @ 100 mls/hr 12/17/20 21:15 12/18/20 10:26 D51/2ns IVCONT Infused .Q10H SARA Infusion Ceftriaxone Sodium 1 gm/ 50 mls @ 100 mls/hr 12/17/20 21:30 12/17/20 23:20 Sodium Chloride IV Not Given Q24H SARA Melatonin 6 mg 12/17/20 21:06 Melatonin 3 Mg Tablet PO BEDTIME PRN Insomnia Senna 17.2 mg 12/17/20 21:06 Sennosides 8.6 Mg Tablet PO BEDTIME PRN Constipation Sodium Chloride 3 ml 12/18/20 00:00 12/18/20 07:03 0.9 % Sodium Chloride Flush 3 Ml Syringe IVFLUSH Not Given QSHIFT SARA Tamsulosin HCl 0.8 mg 12/18/20 09:00 12/18/20 08:12 Tamsulosin Hcl 0.4 Mg Capsule PO 0.8 mg DAILY SARA Administration Tramadol HCl 50 mg 12/17/20 23:21 Tramadol Hcl 50 Mg Tablet PO TID PRN Pain, Moderate Labs CBC & Chem 7: 12/18/20 05:49 12/18/20 05:50 Labs: Laboratory Results - last 24 hr 12/17/20 12/17/20 12/17/20 19:11 19:11 19:11 MCV 87.0 MCH 29.0 MCHC 33.3 RDW 14.8 Plt Count 152 L D MPV 10.3 Immature Gran % (Auto) 3.1 H Neut % (Auto) 56.5 Lymph % (Auto) 21.7 Boyle % (Auto) 17.3 H Eos % (Auto) 1.2 Baso % (Auto) 0.2 Lymph # (Auto) 1.3 Boyle # (Auto) 1.0 Eos # (Auto) 0.1 Baso # (Auto) 0.0 Abs Immat Gran (auto) 0.18 H Absolute Neuts (auto) 3.3 Absolute Nucleated RBC 0.000 Nucleated RBC % (auto) 0.0 Absolute Retic Percent Retic Immature Retic Fraction Retic Hgb Equivalent D-Dimer Anion Gap 14 Estim Creat Clear Calc 66.4 Estimated GFR 49 Random Glucose 124 H Lactic Acid Calcium 8.7 D Magnesium Iron TIBC % Saturation Unsat Iron Binding Total Bilirubin 1.8 H Direct Bilirubin 0.5 AST 31 ALT 35 Alkaline Phosphatase 82 Lactate Dehydrogenase Troponin I High Sens < 3.5 B-Natriuretic Peptide 32 Total Protein 6.7 Albumin 3.6 Lipase 40 Vitamin B12 Folate Urine Color Urine Appearance Urine pH Ur Specific [place] Urine Protein Urine Glucose (UA) Urine Ketones Urine Blood Urine Nitrite Ur Leukocyte Esterase Urine RBC Urine WBC Ur Squamous Epith Cells Urine Bacteria Urine Mucus Stool Occult Blood COVID-19 (ANNABELLE) COVID-19 Clin Com Blood Type Antibody Screen ZACH, Polyspecific Positive ZACH Work-up Crossmatch 12/17/20 12/17/20 12/17/20 19:11 20:01 20:50 MCV MCH MCHC RDW Plt Count MPV Immature Gran % (Auto) Neut % (Auto) Lymph % (Auto) Boyle % (Auto) Eos % (Auto) Baso % (Auto) Lymph # (Auto) Boyle # (Auto) Eos # (Auto) Baso # (Auto) Abs Immat Gran (auto) Absolute Neuts (auto) Absolute Nucleated RBC Nucleated RBC % (auto) Absolute Retic Percent Retic Immature Retic Fraction Retic Hgb Equivalent D-Dimer Anion Gap Estim Creat Clear Calc Estimated GFR Random Glucose Lactic Acid 0.6 Calcium Magnesium Iron TIBC % Saturation Unsat Iron Binding Total Bilirubin Direct Bilirubin AST ALT Alkaline Phosphatase Lactate Dehydrogenase Troponin I High Sens B-Natriuretic Peptide Total Protein Albumin Lipase Vitamin B12 Folate Urine Color Urine Appearance Urine pH Ur Specific [place] Urine Protein Urine Glucose (UA) Urine Ketones Urine Blood Urine Nitrite Ur Leukocyte Esterase Urine RBC Urine WBC Ur Squamous Epith Cells Urine Bacteria Urine Mucus Stool Occult Blood NEGATIVE COVID-19 (ANNABELLE) Negative COVID-19 Clin Com See Note Blood Type Antibody Screen ZACH, Polyspecific Positive ZACH Work-up Crossmatch 12/17/20 12/17/20 12/17/20 20:57 21:41 21:41 MCV MCH MCHC RDW Plt Count MPV Immature Gran % (Auto) Neut % (Auto) Lymph % (Auto) Boyle % (Auto) Eos % (Auto) Baso % (Auto) Lymph # (Auto) Boyle # (Auto) Eos # (Auto) Baso # (Auto) Abs Immat Gran (auto) Absolute Neuts (auto) Absolute Nucleated RBC Nucleated RBC % (auto) Absolute Retic Percent Retic Immature Retic Fraction Retic Hgb Equivalent D-Dimer 567 Anion Gap Estim Creat Clear Calc Estimated GFR Random Glucose Lactic Acid Calcium Magnesium Iron TIBC % Saturation Unsat Iron Binding Total Bilirubin Direct Bilirubin AST ALT Alkaline Phosphatase Lactate Dehydrogenase Troponin I High Sens < 3.5 B-Natriuretic Peptide Total Protein Albumin Lipase Vitamin B12 Folate Urine Color Urine Appearance Urine pH Ur Specific [place] Urine Protein Urine Glucose (UA) Urine Ketones Urine Blood Urine Nitrite Ur Leukocyte Esterase Urine RBC Urine WBC Ur Squamous Epith Cells Urine Bacteria Urine Mucus Stool Occult Blood COVID-19 (ANNABELLE) COVID-19 Clin Com Blood Type O Positive Antibody Screen NEGATIVE ZACH, Polyspecific NEGATIVE Positive ZACH Work-up TNP Crossmatch See Detail 12/17/20 12/18/20 12/18/20 21:49 05:49 05:49 MCV 88.7 MCH 30.1 MCHC 34.0 RDW 15.1 Plt Count 172 MPV 10.7 Immature Gran % (Auto) 2.3 H Neut % (Auto) 81.3 H Lymph % (Auto) 11.5 L Boyle % (Auto) 4.8 Eos % (Auto) 0.0 Baso % (Auto) 0.1 Lymph # (Auto) 0.8 L Boyle # (Auto) 0.3 Eos # (Auto) 0.0 Baso # (Auto) 0.0 Abs Immat Gran (auto) 0.16 H Absolute Neuts (auto) 5.8 Absolute Nucleated RBC 0.000 Nucleated RBC % (auto) 0.0 Absolute Retic 0.154 H Percent Retic 4.2 H Immature Retic Fraction 22.7 H Retic Hgb Equivalent 29.7 L D-Dimer Anion Gap Estim Creat Clear Calc Estimated GFR Random Glucose Lactic Acid Calcium Magnesium Iron 145 TIBC 247 % Saturation 59 H Unsat Iron Binding 102 Total Bilirubin Direct Bilirubin AST ALT Alkaline Phosphatase Lactate Dehydrogenase Troponin I High Sens B-Natriuretic Peptide Total Protein Albumin Lipase Vitamin B12 Folate Urine Color YELLOW Urine Appearance CLEAR Urine pH 6.0 Ur Specific [place] 1.015 Urine Protein NEG Urine Glucose (UA) NEG Urine Ketones NEG Urine Blood NEG Urine Nitrite NEG Ur Leukocyte Esterase NEG Urine RBC 0-2 Urine WBC 0-2 Ur Squamous Epith Cells TRACE Urine Bacteria TRACE Urine Mucus TRACE Stool Occult Blood COVID-19 (ANNABELLE) COVID-19 Clin Com Blood Type Antibody Screen ZACH, Polyspecific Positive ZACH Work-up Crossmatch 12/18/20 12/18/20 05:50 05:50 MCV MCH MCHC RDW Plt Count MPV Immature Gran % (Auto) Neut % (Auto) Lymph % (Auto) Boyle % (Auto) Eos % (Auto) Baso % (Auto) Lymph # (Auto) Boyle # (Auto) Eos # (Auto) Baso # (Auto) Abs Immat Gran (auto) Absolute Neuts (auto) Absolute Nucleated RBC Nucleated RBC % (auto) Absolute Retic Percent Retic Immature Retic Fraction Retic Hgb Equivalent D-Dimer Anion Gap 15 Estim Creat Clear Calc 84.8 Estimated GFR > 60 Random Glucose 337 H D Lactic Acid Calcium 8.8 Magnesium 2.5 Iron TIBC % Saturation Unsat Iron Binding Total Bilirubin 2.0 H Direct Bilirubin 0.6 H AST 27 ALT 36 Alkaline Phosphatase 88 Lactate Dehydrogenase 492 H Troponin I High Sens B-Natriuretic Peptide Total Protein 7.1 Albumin 3.6 Lipase Vitamin B12 821 Folate 16.3 Urine Color Urine Appearance Urine pH Ur Specific [place] Urine Protein Urine Glucose (UA) Urine Ketones Urine Blood Urine Nitrite Ur Leukocyte Esterase Urine RBC Urine WBC Ur Squamous Epith Cells Urine Bacteria Urine Mucus Stool Occult Blood COVID-19 (ANNABELLE) COVID-19 Clin Com Blood Type Antibody Screen ZACH, Polyspecific Positive ZACH Work-up Crossmatch Progress Note: A&P (1) Community acquired pneumonia: Status: Acute (2) Anemia: Status: Acute Assessment and Plan: 60-year-old male with a past medical history of hypertension, hyperlipidemia, arthritis presented to the hospital with a chief complaint of shortness of breath/dyspnea on exertion/cough with sputum production over the last few months, noted to have anemia/pneumonia /hypoxia. Acute hypoxic respiratory failure secondary to pneumonia and anemia. continue supplemental oxygen. Rocephin and azithromycin follow cx Anemia. unknown etiology, no blood in stool, on asa at home hemoglobin dropped from 13.6-8.7 in a couple months. high LDH check dior ? hemolysis Will obtain iron panel, folate, B12 Hematology consult seen and evaluated by GI, patient prefers o/p scope XIONG, no hx of heavy alcohol abuse, family hx elevated bili hepatic steatosis trend LFT 's inr 1.3 elevated blood sugar no hx of diabetes A1C 5.7, borderline Near syncope. EKG nonischemic. likely secondary to anemia orthostatics neg trop telemetry Mild ELA. trending down Gentle IV fluids. History of hypertension Hold home antihypertensives given blood pressure is on the soft side. Also ELA. DVT prophylaxis with SCD boots due to anemia Code status: Full code Attending: Dr. Gonzales Quality Stroke Does the patient have a stroke diagnosis?: No VTE Prior VTE?: No VTE Risk Level:: Medical - moderate - high VTE Device Contraindication: N/A - Device Ordered VTE Drug Contraindication: Treatment Not Indicated
--- NOTE | 2020-12-18 12:18 | PM.GICN ---
History of Present Illness Data of Consult Service Date: 12/17/20 Requesting physician: Johnna Rondon Primary Care Provider: Silvia Patton MD HPI Reason for consult: anemia 60-year-old male with a past medical history of hypertension, hyperlipidemia, arthritis who I am seeing for assessment for anemia He presented with increasing SOB with productive cough with yellow sputum, rx by PCP with cephalexin but not improving. Denies any chest pain or palpitations. No fever or chills Labs revealed worsening anemia and noted to have hemoglobin of 8.7 (13.6 couple months ago) Denies any blood in the stool or vomiting. Denies any abdominal pain or urinary symptoms No nose bleeds, or hematuria denies taking nsaids no FH of ulcers or CRC last colonoscopy 2011--few small tubular adenomas removed, diverticulosis noted. chest x-ray showed no acute findings, transfused 1 unit of blood for symptomatic anemia Ct imaging of chest A/P with no masses or concerning lesions--perosnally reviewed. . Review of Systems Review of Systems: Constitutional : No Weight loss, No Fever, No Chills ENT/Mouth : No sore throat, No Rhinorrhea Eyes: No Swelling, No Redness Cardiovascular : No Chest Pain, + SOB, No Edema Respiratory : No Cough, No Sputum, No Wheezing Gastrointestinal : see HPI Genitourinary : NO Dysuria, No Urinary Frequency, No Hematuria, No Urgency Musculoskeletal : No joint pain, No Myalgias, No Joint Swelling Skin : No Skin Lesions, No rash Neuro : No Weakness, No Numbness, No Dizziness, No Headache Psych : No Anxiety/Panic, No Depression Heme/Lymph: No Bruising, No Lymphadenopathy Endocrine : No Polyuria, No Polydipsia All other systems reviewed and are negative. [facility] Past Medical History Medical History Arthritis FH: total knee replacement High cholesterol Hypertension Social History Social History Household Members: Spouse and Family Housing: House Do you presently have visiting nurse or other home services: Yes Patient Tobacco Use Status: Never used Tobacco Use of substances other than those prescribed or required for medical reasons: No Currently Displaying Signs/Symptoms of Drug Intoxication Withdrawal: No Have you been hit, kicked, punched, or otherwise hurt by someone within the past year? If so, by whom?: No Do you feel safe in your current relationship?: Yes Is there a partner from a previous relationship who is making you feel unsafe now?: No Are you made to feel afraid or neglected: No Advance Directives: No Advance Directives Information Provided: Yes Do you have thoughts of harming others: None Do you have a plan to hurt others: No Plan Recently lost weight without trying: No Nutrition Risks: No Nutritional Risk Poor oral hygiene: No service: No Current occupational status: employed Meds Allergies Allergy/AdvReac Type Severity Reaction Status Date / Time No Known Allergies Allergy Unknown Verified 06/29/20 23:18 Active Medications: Current Medications Generic Name Dose Route Start Last Admin Trade Name Freq PRN Reason Stop Dose Admin Acetaminophen 650 mg 12/17/20 21:06 Acetaminophen 325 Mg Tablet PO Q6H PRN Pain, Mild (Pain Scale 1-3) Albuterol/Ipratropium 3 ml 12/17/20 21:06 Albuterol/Iprat 2.5/0.5mg 3 Ml Ampul.Neb INHALE RQ4H PRN Shortness of Breath/Wheezing Azithromycin 500 mg 12/17/20 21:30 12/17/20 23:20 Azithromycin 500 Mg Tablet PO Not Given Q24H SARA Benzonatate 100 mg 12/17/20 21:21 Benzonatate 100 Mg Capsule PO TID PRN Cough Dextrose/Sodium Chloride 1,000 mls @ 100 mls/hr 12/17/20 21:15 12/18/20 10:26 D51/2ns IVCONT Infused .Q10H SARA Infusion Ceftriaxone Sodium 1 gm/ 50 mls @ 100 mls/hr 12/17/20 21:30 12/17/20 23:20 Sodium Chloride IV Not Given Q24H SARA Melatonin 6 mg 12/17/20 21:06 Melatonin 3 Mg Tablet PO BEDTIME PRN Insomnia Senna 17.2 mg 12/17/20 21:06 Sennosides 8.6 Mg Tablet PO BEDTIME PRN Constipation Sodium Chloride 3 ml 12/18/20 00:00 12/18/20 07:03 0.9 % Sodium Chloride Flush 3 Ml Syringe IVFLUSH Not Given QSHIFT SARA Tamsulosin HCl 0.8 mg 12/18/20 09:00 12/18/20 08:12 Tamsulosin Hcl 0.4 Mg Capsule PO 0.8 mg DAILY SARA Administration Tramadol HCl 50 mg 12/17/20 23:21 Tramadol Hcl 50 Mg Tablet PO TID PRN Pain, Moderate Home Medications Medication Instructions Recorded Confirmed Last Taken Type amlodipine 1 tab PO DAILY 12/17/20 12/17/20 Unknown History amoxicillin-pot clavulanate 1 tab PO Q12H 12/17/20 12/17/20 Unknown History aspirin 1 tab PO DAILY 12/17/20 12/17/20 Unknown History benazepril 1 tab PO DAILY 12/17/20 12/17/20 Unknown History tamsulosin 2 cap PO DAILY 12/17/20 12/17/20 Unknown History tramadol 1 tab PO TID PRN 12/17/20 12/17/20 Unknown History Physical Exam Vital Signs: Vital Signs: Last Vital Signs Temp 97.7 F 12/18/20 11:31 Pulse 88 12/18/20 11:31 Resp 18 12/18/20 11:31 BP 130/76 12/18/20 11:31 Pulse Ox 94 12/18/20 11:31 Body Mass Index 29.0 EXAM: GENERAL: The patient is well developed and nontoxic. VITAL SIGNS:see workflow HEENT: Nonicteric sclerae, PERRLA, EOMI. Oropharynx clear. Moist mucous membranes. Conjunctivae appear well perfused. No thyroid mass. CHEST: Chest wall is nontender. HEART: Regular rate and rhythm without murmurs. LUNGS: Clear to auscultation bilaterally. ABDOMEN: Soft, positive bowel sounds, nontender, no organomegaly.no flank tenderness SKIN: No rash, no excessive bruising, petechiae, or purpura. NEUROLOGIC: Cranial nerves II-XII intact without motor/sensory deficit. psych---normal affect MS--normal Results Labs CBC & Chem 7: 12/18/20 05:49 12/18/20 05:50 Labs: Short CBC 12/17/20 12/18/20 Range/Units 19:11 05:49 WBC 5.9 7.1 (4.8-10.8) X10*3/uL Hgb 8.7 L D 10.9 L D (14.0-18.0) g/dl Hct 26.1 L D 32.1 L D (42-52) % Plt Count 152 L D 172 (160-400) X10*3/uL BMP 12/17/20 12/18/20 19:11 05:50 Sodium 137 137 Potassium 4.2 4.7 Chloride 105 106 Carbon Dioxide 22 21 L BUN 31 H D 26 H Creatinine 1.47 H 1.15 Calcium 8.7 D 8.8 Liver Function 12/17/20 12/18/20 Range/Units 19:11 05:50 Total Bilirubin 1.8 H 2.0 H (0.0-1.0) mg/dL Direct Bilirubin 0.5 0.6 H (0.0-0.5) mg/dL AST 31 27 (5-37) U/L ALT 35 36 (0-40) U/L Alkaline Phosphatase 82 88 (39-117) U/L Albumin 3.6 3.6 (3.5-5.0) g/dL Urine 12/17/20 Range/Units 21:49 Urine Color YELLOW Urine Appearance CLEAR Urine pH 6.0 (5.0-8.0) Ur Specific [place] 1.015 (1.005-1.025) Urine Protein NEG (NEG-TRACE) MG/DL Urine Glucose (UA) NEG (NEG) MG/DL Assessment and Plan (1) Anemia: Qualifiers: Anemia type: unspecified type Qualified Code(s): D64.9 - Anemia, unspecified Status: Acute 1/ Subacute anemia, prob from low level blood loss, ddx; hemolysis, bone marrow failure PLAN: 1/ Advised EGD and colonoscopy but he wishes to defer as o/p as he wants to go home, due to personal circumstances. Advised will co ordinate for next week hopefully. If any worse shoudl come back to ED which he agreed to do. 2/ check hemolysis labs, periheral smear, hematinics, celiac serology Procedures Date of Service Date of Service: 12/18/20
[2020-12-18 12:38] LABS: Estimated Average Glucose 117 mg/dL; Hemoglobin A1c % 5.7 %
[2020-12-18 13:38] LABS: INTERNATIONAL NORM RATIO 1.3 (0.9-1.1); Prothrombin Time 14.7 SEC (9.9-13.0)
--- NOTE | 2020-12-18 14:45 | PM.HEMONCCN ---
Subjective - Subjective Chief complaint: Weakness Consult date: 12/18/20 Primary Care Provider: Silvia Patton MD HPI - Consult Narrative Reason for consult: anemia Narrative: Narayan Valdes is a 60 year old male who was admitted to [facility] [place] on 12/17/2020 with complaints of progressive weakness and near syncope on the day of admission. Patient states that since September he has been feeling poorly with progressive weakness that had been persisting all day long. He saw his PCP in September, he had blood work done and his CBC at that time showed a hemoglobin of almost 15 gram/dL. He has no other complaints such as loss of appetite, weight loss, chest pain or shortness of breath. In the last week he started to feel dizzy and extremely weak. This also coincides with when he started taking Keflex about a week ago. He was not having any fever but he thought antibiotics might help his weakness and he asked his PCP who prescribed it. He had no diarrhea, abdominal discomfort, hematochezia or melena. He had bilateral knee replacements about a year ago, performed at [facility]. Prior to surgery he lost weight as was recommended by his doctors. Review of Systems - Constitutional Reports as per HPI, Reports no additional constitutional complaints - Cardiovascular Reports no additional cardiovascular complaints - Respiratory Reports no additional respiratory complaints - Gastrointestinal Reports no additional gastrointestinal complaints Oncology Screenings - ECOG Performance Status ECOG Performance Status: 2 [facility] Medical History: Medical History (Last Reviewed 12/17/20 @ 18:59 by Dominik Georges MD) Arthritis FH: total knee replacement High cholesterol Hypertension Social History: Social History (Last Reviewed 12/17/20 @ 18:59 by Dominik Georges MD) Living Situation History: Household Members: Spouse Household Members: Family Housing: House Do you presently have visiting nurse or other home services: Yes Tobacco History: Patient Tobacco Use Status: Never used Tobacco Substance Use History: Use of substances other than those prescribed or required for medical reasons: No Currently Displaying Signs/Symptoms of Drug Intoxication Withdrawal: No Domestic Abuse History: Have you been hit, kicked, punched, or otherwise hurt by someone within the past year? If so, by whom?: No Do you feel safe in your current relationship?: Yes Is there a partner from a previous relationship who is making you feel unsafe now?: No Are you made to feel afraid or neglected: No Advance Directives: Advance Directives: No Advance Directives Information Provided: Yes Homicidal Assessment: Do you have thoughts of harming others: None Do you have a plan to hurt others: No Plan Nutrition Assessment: Recently lost weight without trying: No Nutrition Risks: No Nutritional Risk Patient : No Patient comment: no Poor oral hygiene: No Occupation Assessmet: service: No Current occupational status: employed Home Medications and Allergies Current Medications: Current Medications Generic Name Dose Route Start Last Admin Trade Name Freq PRN Reason Stop Dose Admin Acetaminophen 650 mg 12/17/20 21:06 Acetaminophen 325 Mg Tablet PO Q6H PRN Pain, Mild (Pain Scale 1-3) Albuterol/Ipratropium 3 ml 12/17/20 21:06 Albuterol/Iprat 2.5/0.5mg 3 Ml Ampul.Neb INHALE RQ4H PRN Shortness of Breath/Wheezing Azithromycin 500 mg 12/17/20 21:30 12/17/20 23:20 Azithromycin 500 Mg Tablet PO Not Given Q24H SARA Benzonatate 100 mg 12/17/20 21:21 Benzonatate 100 Mg Capsule PO TID PRN Cough Ceftriaxone Sodium 1 gm/ 50 mls @ 100 mls/hr 12/17/20 21:30 12/17/20 23:20 Sodium Chloride IV Not Given Q24H [facility] Melatonin 6 mg 12/17/20 21:06 Melatonin 3 Mg Tablet PO BEDTIME PRN Insomnia Senna 17.2 mg 12/17/20 21:06 Sennosides 8.6 Mg Tablet PO BEDTIME PRN Constipation Sodium Chloride 3 ml 12/18/20 00:00 12/18/20 14:18 0.9 % Sodium Chloride Flush 3 Ml Syringe IVFLUSH Not Given QSHIFT SARA Tamsulosin HCl 0.8 mg 12/18/20 09:00 12/18/20 08:12 Tamsulosin Hcl 0.4 Mg Capsule PO 0.8 mg DAILY [facility] Administration Tramadol HCl 50 mg 12/17/20 23:21 Tramadol Hcl 50 Mg Tablet PO TID PRN Pain, Moderate Home Medications Medication Instructions Recorded Confirmed Type amlodipine 1 tab PO DAILY 12/17/20 12/17/20 History amoxicillin-pot clavulanate 1 tab PO Q12H 12/17/20 12/17/20 History aspirin 1 tab PO DAILY 12/17/20 12/17/20 History benazepril 1 tab PO DAILY 12/17/20 12/17/20 History tamsulosin 2 cap PO DAILY 12/17/20 12/17/20 History tramadol 1 tab PO TID PRN 12/17/20 12/17/20 History Allergies Allergy/AdvReac Type Severity Reaction Status Date / Time No Known Allergies Allergy Unknown Verified 06/29/20 23:18 Physical Exam Vital signs: Vital Signs Temp 97.7 F 12/18/20 11:31 Pulse 88 12/18/20 11:31 Resp 18 12/18/20 11:31 BP 130/76 12/18/20 11:31 Pulse Ox 94 12/18/20 11:31 Intake & Output 12/17/20 12/18/20 12/18/20 18:59 06:59 18:59 Intake Total 2000 / 2000 1720 / 1720 Output Total 1100 / 1100 Balance 900 / 900 1720 / 1720 Urine Output (Average ml/kg/hr) 0.92 0.92 Intake: Intake, Oral Amount 720 / 720 Intake (Blood Product) Amount 700 / 700 Red Blood Cells (E0382) Unit 350 / 350 [id number] Red Blood Cells (E0382) Unit 350 / 350 [id number] Intake, IV Amount 1300 / 1300 1000 / 1000 Azithromycin 500 mg In 0.9 % 250 / 250 Sodium Chloride 250 ml @ 125 mls/hr IV ONCE ONE Rx#: [id number] cefTRIAXone sodium 1 gm In 0.9 50 / 50 % Sodium Chloride 50 ml @ 100 mls/hr IV ONCE ONE Rx#: [id number] 0.9 % Sodium Chloride 1,000 ml 1000 / 1000 @ 250 mls/hr IVCONT .Q4H SARA Rx #:[id number] Dextrose 5 % and 0.45 % NaCl 1, 1000 / 1000 000 ml @ 100 mls/hr IVCONT . Q10H SARA Rx#:[id number] Output: Output, Urine Amount 1100 / 1100 Other: Breakfast % Eaten 100% Lunch % Eaten 100% Number of Unmeasured Voids 1 2 Urine Bathroom Last Bowel Movement 12/17/20 12/17/20 Weight 99.79 kg Weight 99.79 kg - Constitutional Present: no acute distress - Routine HEENT Exam Head: Present: normal inspection Eye: Present: EOMI - Routine Neck Exam Present: supple. Absent: lymphadenopathy - Routine Respiratory Exam Present: CTAB. Absent: accessory muscle use - Routine Cardiovascular Exam Cardiovascular: Present: RRR, S1, S2 - Routine Abdominal Exam Present: soft. Absent: tenderness - Routine Neurological Exam Present: alert, oriented X3 Hem/Onc Consult Result - Labs CBC & Chem 7: 12/18/20 05:49 12/18/20 05:50 Labs: Short CBC 12/17/20 12/18/20 Range/Units 19:11 05:49 WBC 5.9 7.1 (4.8-10.8) X10*3/uL Hgb 8.7 L D 10.9 L D (14.0-18.0) g/dl Hct 26.1 L D 32.1 L D (42-52) % Plt Count 152 L D 172 (160-400) X10*3/uL BMP 12/17/20 12/18/20 19:11 05:50 Sodium 137 137 Potassium 4.2 4.7 Chloride 105 106 Carbon Dioxide 22 21 L BUN 31 H D 26 H Creatinine 1.47 H 1.15 Calcium 8.7 D 8.8 Liver Function 12/17/20 12/18/20 Range/Units 19:11 05:50 Total Bilirubin 1.8 H 2.0 H (0.0-1.0) mg/dL Direct Bilirubin 0.5 0.6 H (0.0-0.5) mg/dL AST 31 27 (5-37) U/L ALT 35 36 (0-40) U/L Alkaline Phosphatase 82 88 (39-117) U/L Albumin 3.6 3.6 (3.5-5.0) g/dL Urine 12/17/20 Range/Units 21:49 Urine Color YELLOW Urine Appearance CLEAR Urine pH 6.0 (5.0-8.0) Ur Specific [place] 1.015 (1.005-1.025) Urine Protein NEG (NEG-TRACE) MG/DL Urine Glucose (UA) NEG (NEG) MG/DL Assessment and Plan (1) Anemia Status: Acute Qualifiers: Anemia type: unspecified type Qualified Code(s): D64.9 - Anemia, unspecified 1. This is a 60-year-old man presenting with near syncope and anemia. He had a normal CBC with hemoglobin of 15 gram/dL in September 2020. His symptoms appear to have worsened after he received Keflex for a week. Blood work shows elevated LDH and indirect hyperbilirubinemia consistent with hemolysis, Dany test is negative. Peripheral blood smear does not show schistocytes, echinocytes seen. WBC and platelet morphology appears normal. No obvious gastrointestinal blood losses. He may have drug-induced hemolysis which could have caused some of the anemia. However, he did have symptoms of weakness for last 2 months, therefore another process is likely. Submit serum protein electrophoresis and immunofixation. He has developed mild renal insufficiency. CT abdomen/ pelvis without contrast and depending on above results, further recommendations for testing such as bone marrow aspiration /biopsy will be made. I thank you for this consultation, will follow with you.
[2020-12-19 03:51] VITALS: BP 145/88; PULSE 94; RESP 20; TEMP 36.6; O2SAT 97
[2020-12-19 07:12] LABS: Hematocrit 32.5 % (42-52); Hemoglobin 10.6 g/dl (14.0-18.0); Mean Corpuscular HGB Conc 32.6 g/dl (31.0-36.0); Mean Corpuscular Hemoglobin 28.8 pg (27.0-33.0); Mean Corpuscular Volume 88.3 fL (80-98); Mean Platelet Volume 10.3 fL (9.4-12.4); Platelet Count 180 X10*3/uL (160-400); Red Blood Count 3.68 X10*6/uL (4.60-5.80); White Blood Count 7.1 X10*3/uL (4.8-10.8)
[2020-12-19 07:38] VITALS: BP 139/88; PULSE 97; RESP 19; TEMP 36.7; O2SAT 96
[2020-12-19 07:41] LABS: Anion Gap 14 (12-20); Blood Urea Nitrogen 24 mg/dL (9-16); Calcium 8.5 mg/dL (8.4-10.2); Carbon Dioxide 23 mmol/L (22-29); Chloride 106 mmol/L (96-108); Creatinine Clr Calc Pharmacy 87.1; Estimated Glomerular Filt Rate > 60; Glucose Random 202 mg/dL (60-115); Potassium 4.6 mmol/L (3.3-5.1); Sodium 138 mmol/L (135-145)
[2020-12-19] MEDS: Tamsulosin HCL 0.4 MG CAPSULE 0.8 MG PO (08:10)
[2020-12-19] MEDS: 0.9 % Sodium Chloride Flush 3 ML SYRINGE IVFLUSH (08:12)
[2020-12-19 08:43] LABS: Alanine Aminotransferase 35 U/L (0-40); Albumin Level 3.5 g/dL (3.5-5.0); Alkaline Phosphatase 85 U/L (39-117); Aspartate Amino Transferase 23 U/L (5-37); Bilirubin Direct 0.6 mg/dL (0.0-0.5); Bilirubin Total 1.8 mg/dL (0.0-1.0); Total Protein 6.8 g/dL (6.5-8.0)
[2020-12-19 11:20] VITALS: BP 160/80; PULSE 83; RESP 17; TEMP 36.4; O2SAT 97
--- NOTE | 2020-12-19 11:58 | MHC.CM.PN ---
EMR REVIEWED, PT DISCHARGING HOME SELF-CARE, PT WILL SELF TRANSPORT.
--- NOTE | 2020-12-19 12:09 | PM.DS ---
DS: Providers Provider Date of Service: 12/19/20 Date of admission: 12/17/20 21:06 Date of discharge: 12/19/20 Primary care physician: Silvia Patton MD Admitting clinician: López Arnett Attending physician on admission: López Arnett Consults: 12/17/20 21:06 Consult to Hematology / Oncology Routine Consulting Provider: Rachael Mc Reason for consultation: anemia 12/18/20 12:08 Consult to Gastroenterology Routine Consulting Provider: Eryn Cosby Reason for consultation: severe anemia, on asa at home Has provider been notified: No Attending physician on discharge: Brandan Gonzales Discharging clinician: Johnna Rondon DS: Diagnosis Discharge Diagnosis (1) Anemia: Status: Acute DS: Medications Discharge Medications Home Medications: Home Medications Medication Instructions Recorded Confirmed amlodipine 1 tab PO DAILY 12/17/20 12/17/20 aspirin 1 tab PO DAILY 12/17/20 12/17/20 benazepril 1 tab PO DAILY 12/17/20 12/17/20 tamsulosin 2 cap PO DAILY 12/17/20 12/17/20 tramadol 1 tab PO TID PRN 12/17/20 12/17/20 DS: Summary Hospital Course Hospital Course: HP as per admitting provider 60-year-old male with a past medical history of hypertension, hyperlipidemia, arthritis presented to the hospital with a chief complaint of shortness of breath for 2 weeks. Patient reported that his shortness of breath has been gradually worsening over 2 weeks; complains of cough with Yellow sputum production; has seen the PCP as outpatient and was given cephalexin. Today patient mentioned that he had severe episode of cough followed by he felt like his Is going to Faint but did not lose consciousness. lowered himself to the ground; denies any fall or head strike. Denies any chest pain or palpitations. Denies any blood in the stool or vomiting. Denies any abdominal pain or urinary symptoms. Denies any toxic habits Review of all other systems is negative except mentioned above ER course: Per ER team patient on presentation was noted to be hypoxic to mid 80s; chest x-ray showed no acute findings; more on labs noted to have hemoglobin of 8.7 from 13.6 couple months ago; stool guaiac was negative. Being transfused 1 unit of blood for symptomatic anemia. EKG was nonischemic. Troponin negative. Admitted for further management . Anemia. Patient reports over 2 months of feeling more lethargic and tired. Had not noted any blood in his stool and stool occult for blood was negative. He had blood work in September of 2020 and his hemoglobin was 15.1 and hematocrit 45.7. Upon admission his hemoglobin was noted to be 8.7 and 26.1. This was a significant drop and patient did receive 2 units of packed red blood cells. He was also seen and evaluated by Hematology. There was a question whether this was medication induced anemia as he had been on Keflex for a week however symptoms have been ongoing for a longer period of time. He had elevated LDH and hyperbilirubinemia consistent with hemolysis, his Dany test was negative. He should follow-up with Hematology for further lab work and testing. His chest CT and abdominal and pelvic CT was negative for any acute abnormality although he did have some splenomegaly. He may at some point need a bone marrow aspiration /biopsy. At this time he is safe for discharge and his blood counts are stable. During his stay there was question whether he had pneumonia however chest CT did not show any consolidation therefore he was taking of antibiotics and does not require any at discharge. Patient is medically stable for discharge home at this time. Time Spent with Patient Time attestation: Total time spent providing and/or coordinating discharge services: Discharge coordination time: Greater than 30 minutes Quality: Stroke Does the patient have a stroke diagnosis?: No Physical Exam Vital Signs: Vital Signs: Last Vital Signs Temp 97.6 F 12/19/20 11:20 Pulse 83 12/19/20 11:20 Resp 17 12/19/20 11:20 BP 160/80 H 12/19/20 11:20 Pulse Ox 97 12/19/20 11:20 Body Mass Index 29.0 Appearing in no acute distress head is normocephalic atraumatic eyes pupils are PERRLA sclera is anicteric mouth throat mucous membranes are intact and moist neck is supple no lymphadenopathy, no JVD noted lung sounds are clear to auscultation heart regular rate rhythm, clear S1, S2 positive bowel sounds, abdomen is soft, nontender neuro patient is alert x3, no focal deficits DS: Data Data Completed and Pending Labs on day of discharge: Laboratory Results - last 24 hr 12/18/20 12/18/20 12/19/20 05:49 13:07 06:43 WBC 7.1 RBC 3.68 L Hgb 10.6 L Hct 32.5 L MCV 88.3 MCH 28.8 MCHC 32.6 RDW 15.0 Plt Count 180 MPV 10.3 Absolute Nucleated RBC 0.000 Nucleated RBC % (auto) 0.0 PT 14.7 H INR 1.3 H Sodium Potassium Chloride Carbon Dioxide Anion Gap BUN Creatinine Estim Creat Clear Calc Estimated GFR Random Glucose Estimat Average Glucose 117 Hemoglobin A1c % 5.7 Calcium Total Bilirubin Direct Bilirubin AST ALT Alkaline Phosphatase Total Protein Albumin 12/19/20 06:43 WBC RBC Hgb Hct MCV MCH MCHC RDW Plt Count MPV Absolute Nucleated RBC Nucleated RBC % (auto) PT INR Sodium 138 Potassium 4.6 Chloride 106 Carbon Dioxide 23 Anion Gap 14 BUN 24 H Creatinine 1.12 Estim Creat Clear Calc 87.1 Estimated GFR > 60 Random Glucose 202 H D Estimat Average Glucose Hemoglobin A1c % Calcium 8.5 Total Bilirubin 1.8 H Direct Bilirubin 0.6 H AST 23 ALT 35 Alkaline Phosphatase 85 Total Protein 6.8 Albumin 3.5 Preliminary micro results at discharge 12/17/20 20:54 Blood Culture - Preliminary Blood - Venous No growth after 24 hours. 12/17/20 20:50 Blood Culture - Preliminary Blood - Venous No growth after 24 hours. Discharge Plan Discharge Anticipated Discharge Date/Time: 12/19/20 12:05 Patient Disposition: Home, Self-Care Discharge Diagnosis: anemia near-syncope ELA Self Referrals: Silvia Patton MD [Primary Care Provider] - 1 Week Eryn Cosby MD [Physician] - 1 Week ( endoscopy) Rachael Mc MD [Physician] - 1 Week ( follow-up for lab work, anemia) Discharge Medications: Continued aspirin 81 mg tablet,delayed release (DR/EC) 1 tab PO DAILY RF: 0 tramadol 50 mg tablet 1 tab PO TID PRN (Reason: Pain, Moderate) RF: 0 tamsulosin 0.4 mg capsule 2 cap PO DAILY RF: 0 amlodipine 10 mg tablet 1 tab PO DAILY RF: 0 benazepril 10 mg tablet 1 tab PO DAILY RF: 0 Discontinued amoxicillin-pot clavulanate 875-125 mg tablet 1 tab PO Q12H RF: 0 Discharge Orders: Discharge Order (Routine); Ordered 12/19/20 Ordered By: Johnna Rondon Diet: advance to usual diet Activity on Discharge: As tolerated Stand Alone Forms: Patient Portal Discharge page Care Plan Goals: resolution of anemia symptoms Health Concerns: anemia near-syncope ELA Self Plan of Treatment: follow-up with cryogenic transport driver for your scheduled appointment for endoscopy follow-up with television news producer to examine the blood work and possible further followup Assessment: see discharge summary
[2020-12-21 14:01] LABS: Haptoglobin <8 mg/dL (43-212)
[2020-12-25 15:56] LABS: PES - Abn Protein Band 1 0.4 g/dL (NONE DETECTED); Prot Elec - Albumin 3.6 g/dL (3.8-4.8); Prot Elec - Alpha1 0.5 g/dL (0.2-0.3); Prot Elec - Alpha2 0.5 g/dL (0.5-0.9); Prot Elec - Beta 1 0.8 g/dL (0.4-0.6); Prot Elec - Beta 2 0.3 g/dL (0.2-0.5); Prot Elec - Gamma 1.3 g/dL (0.8-1.7)
[2020-12-25 21:41] LABS: IgA 245 mg/dL (47-310); IgG 1691 mg/dL (600-1640); IgM 96 mg/dL (50-300)
== END 2020-12-19 13:53 | disposition home or self-care (01) | DRG 811 ==
LOC: HO.ED 20:41 → HO.EDOVER 21:32 → HO.S3 21:56
PROVIDERS: Internal Medicine; Nurse Practitioner Acute Care; Admitting Provider Hospitalist; Emergency Provider Emergency Medicine; PCP Pediatrics; Visit Provider Family Medicine
DX: D64.9 Anemia, unspecified (principal); J96.01 Acute respiratory failure with hypoxia; N17.9 Acute kidney failure, unspecified; K75.81 Nonalcoholic steatohepatitis (NASH); E78.5 Hyperlipidemia, unspecified; I10 Essential (primary) hypertension; Z20.822 Contact with and (suspected) exposure to COVID-19; Z79.82 Long term (current) use of aspirin; Z79.891 Long term (current) use of opiate analgesic; Z79.899 Other long term (current) drug therapy
CPT/HCPCS: 36415; 71045; 71250; 74176; 78580; 80048; 80076; 81001; 82272; 82607; 82746; 82784; 83010; 83036; 83540; 83605; 83615; 83690; 83735; 83880; 84155; 84165; 84484; 85025; 85027; 85045; 85379; 85610; 86334; 86850; 86880; 86900; 86901; 86923; 87040; 87635; 93005; 94640; 99285; A9540; J0456; J0696; J2930; P9016

== ENCOUNTER 2020-12-27 06:40 | Outpatient (REF) | payer MEDICARE, MEDICAID, SELFPAY ==
[2020-12-27 07:06] LABS: Hematocrit 29.5 % (42-52); Hemoglobin 9.7 g/dl (14.0-18.0); Immature Retic Fraction 33.6 % (2.3-13.4); Mean Corpuscular HGB Conc 32.9 g/dl (31.0-36.0); Mean Corpuscular Hemoglobin 29.8 pg (27.0-33.0); Mean Corpuscular Volume 90.8 fL (80-98); Mean Platelet Volume 9.2 fL (9.4-12.4); NRBC Pct Auto 0.7 /100WBC (0.0-0.2); Platelet Count 378 X10*3/uL (160-400); Red Blood Count 3.25 X10*6/uL (4.60-5.80); Red Cell Distribution Width 16.2 % (11.0-16.0); Retic HGB Equivalent 33.8 pg (30.0-35.0); Reticulocyte Percent 8.1 % (0.5-1.8); Reticulocytes Absolute 0.263 X10*6/uL (0.026-0.095); White Blood Count 7.1 X10*3/uL (4.8-10.8)
[2020-12-27 07:32] LABS: Alanine Aminotransferase 88 U/L (0-40); Albumin Level 3.7 g/dL (3.5-5.0); Alkaline Phosphatase 105 U/L (39-117); Anion Gap 11 (12-20); Aspartate Amino Transferase 41 U/L (5-37); Bilirubin Total 0.6 mg/dL (0.0-1.0); Blood Urea Nitrogen 18 mg/dL (9-16); Calcium 9.1 mg/dL (8.4-10.2); Carbon Dioxide 26 mmol/L (22-29); Chloride 108 mmol/L (96-108); Estimated Glomerular Filt Rate 58; Glucose Random 217 mg/dL (60-115); Iron 101 mcg/dL (45-160); Percent Iron Saturation 36 % (15-50); Potassium 4.9 mmol/L (3.3-5.1); Sodium 140 mmol/L (135-145); Total Iron Binding Capacity 279 mcg/dL (228-428); Total Protein 7.3 g/dL (6.5-8.0); Unsaturated Iron Binding 178 ug/dL
[2020-12-27 07:36] LABS: Band Neutrophils Percent 8 % (3-5); Basophils Abs Manual 0.1 X10*3/uL (0.0-0.3); Basophils Percent Manual 2 % (0-1); Lymphocytes Absolute Manual 1.4 X10*3/uL (0.6-4.8); Lymphocytes Percent Manual 20 % (20-40); Metamyelocytes Absolute 0.1 X10*3/uL; Metamyelocytes Percent 1 %; Monocytes Absolute Manual 0.6 X10*3/uL (0.0-1.2); Monocytes Percent Manual 9 % (2-11); Neutrophils Absolute Manual 4.8 X10*3/uL (2.2-7.9); Neutrophils Percent Manual 60 % (45-73)
[2020-12-27 07:37] LABS: Nucleated Red Blood Cells 2 /100WBC (0-0); RBC Morphology NOTED
[2020-12-27 07:38] LABS: Macrocytosis 1+ (5-14) /OIF; Polychromasia 2+ (3-5) /OIF
[2020-12-27 07:41] LABS: Basophilic Stippling 1+ (0-2) /OIF
[2020-12-27 07:42] LABS: Platelet Estimate NORMAL (NORMAL); Platelet Morphology Comment NORMAL
[2020-12-27 07:57] LABS: Vitamin B12 822 pg/mL (200-900)
[2020-12-27 08:14] LABS: TSH reflex Free T4 1.67 uIU/mL (0.32-4.0)
[2020-12-27 08:42] LABS: Ferritin 3206 ng/mL (20-250)
[2020-12-31 14:51] LABS: PES - Abn Protein Band 1 0.3 g/dL (NONE DETECTED); Prot Elec - Albumin 3.6 g/dL (3.8-4.8); Prot Elec - Alpha1 0.5 g/dL (0.2-0.3); Prot Elec - Alpha2 0.5 g/dL (0.5-0.9); Prot Elec - Beta 1 0.8 g/dL (0.4-0.6); Prot Elec - Beta 2 0.4 g/dL (0.2-0.5); Prot Elec - Gamma 1.4 g/dL (0.8-1.7); Prot Elec - Total Protein 7.1 g/dL (6.1-8.1)
== END 2020-12-27 06:41 | disposition home or self-care (01) ==
LOC: HO.LAB 06:40
PROVIDERS: Visit Provider Pediatrics
DX: D64.9 Anemia, unspecified (principal)
CPT/HCPCS: 36415; 80053; 82607; 82728; 83540; 84165; 84443; 85007; 85025; 85027; 85045

== ENCOUNTER 2020-12-31 12:14 | Day surgery (SDC) | payer MEDICARE, MEDICAID, SELFPAY ==
--- NOTE | 2020-12-28 12:44 | P.CONAN_ITS ---
HPI - Anesthesia Eval Consult details Narrative: 60yo M for Upper Endoscopy and Colon[place] [facility] [place] with weakness for months, anemia. PMFSH Active Problems Active Problems: All Active Problems (Updated 12/27/20 @ 00:01 by Background Daemon) Anemia (Acute) Past Medical History Medical History (Updated 12/27/20 @ 00:01 by Background Daemon) Anemia Arthritis Depression Fatty liver High cholesterol Hypertension Surgical History Surgical History (Updated 12/25/20 @ 12:33 by Marlen Virgen) History of total bilateral knee replacement History of umbilical hernia repair Hx of colonoscopy Hx of hernia repair Social History Social History Household Members: Spouse and Family Housing: House Do you presently have visiting nurse or other home services: Yes Patient Tobacco Use Status: Never used Tobacco Use of substances other than those prescribed or required for medical reasons: No Have you been hit, kicked, punched, or otherwise hurt by someone within the past year? If so, by whom?: No Are you DNR?: No Advance Directives: No Advance Directives Information Provided: Yes Recently lost weight without trying: No service: No Current occupational status: employed Meds Allergies Allergy/AdvReac Type Severity Reaction Status Date / Time No Known Allergies Allergy Unknown Verified 06/29/20 23:18 Home Medications Medication Instructions Recorded Confirmed Last Taken Type amlodipine 1 tab PO DAILY 12/17/20 12/25/20 12/31/20 History aspirin 1 tab PO DAILY 12/17/20 12/25/20 Unknown History benazepril 1 tab PO DAILY 12/17/20 12/25/20 Unknown History tamsulosin 2 cap PO DAILY 12/17/20 12/25/20 Unknown History tramadol 1 tab PO TID PRN 12/17/20 12/25/20 Unknown History Exam Exam Date and Time: December 28, 2020 1244 Pertinent Lab Results Pertinent Lab Results: Laboratory Tests 12/27/20 12/27/20 06:50 06:50 WBC 7.1 Hgb 9.7 L Hct 29.5 L Plt Count 378 D Sodium 140 Potassium 4.9 Chloride 108 Carbon Dioxide 26 BUN 18 H Creatinine 1.26 Narrative Narrative: EKG 12/2020 Vent. Rate : 092 BPM Atrial Rate : 092 BPM P-R Int : 152 ms QRS Dur : 092 ms QT Int : 340 ms P-R-T Axes : 026 -09 024 degrees QTc Int : 420 ms Normal sinus rhythm Moderate voltage criteria for LVH, may be normal variant Borderline ECG When compared with ECG of 17-JUL-2017 21:28, No significant change was found Assessment and Plan Assessment Anesthesia Assessment: Chart Reviewed
--- NOTE | 2020-12-31 12:20 | P.HPSUR_ITS ---
Pre-Procedural Eval Section A Date of Service: 12/31/20 Section B Chief Complaint: anemia Relevant Family History (Specify if Yes): No Relevant Social History: None Present Medications: see Short Stay Collaborative assessment Medical History: Significant History (Anemia Arthritis Depression Fatty liver High cholesterol Hypertension) History of Previous Operations: Relevant previous surgery/procedure and date(s) (History of total bilateral knee replacement History of umbilical hernia repair Hx of colonoscopy Hx of hernia repair) Allergies: Allergies Allergy/AdvReac Type Severity Reaction Status Date / Time No Known Allergies Allergy Unknown Verified 06/29/20 23:18 Review of Systems Sugical H&P ROS: Negative: Constitution, Cardiovascular, Respiratory, Neurological, Psychiatric, Hem-Onc, Allergic/Immunologic, Gastrointestinal, G enitourinary, Musculoskeletal, Integumentary, Endocrine and Eyes/Ears/Nose/Throat Exam Surgical H&P Exam: Normal: HEENT, Normal: Heart, Normal: Lungs, Normal: Extremities, Normal: Abdomen, Normal: Skin and Normal: Neurological Plan Diagnosis/Plan: Unchanged I have reviewed the history and physical and performed a pertinent physical examination on my patient. No changes have occurred unless specified.
[2020-12-31 12:46] VITALS: BP 116/81; PULSE 78; RESP 18; TEMP 36.4; O2SAT 97; BMI 27.7
--- NOTE | 2020-12-31 12:59 | P.BOP_ITS ---
Brief Operative Note Date of Service: 12/31/20 Pre-op diagnosis: anemia Post-op diagnosis: same Procedure: see op note Surgeon: Eryn Cosby MD Anesthesia: MAC Was an [employer] used for this Procedure?: No Estimated blood loss (mL): 0 Condition: stable Disposition: PACU
--- NOTE | 2020-12-31 12:59 | P.OP_ITS ---
Operative Note Operative Note Date of Service: 12/31/20 Narrative: Operative Information Procedure Description: EGD, Colonoscopy FLEXIBLE TRANSORAL UPPER GASTROINTESTINAL ENDOSCOPY AND COLONOSCOPY PROCEDURE NOTE UPPER ENDOSCOPY Consent: Indications for the procedure and potential complications of bleeding, perforation, reaction to medications and missed diagnosis were discussed with the patient and informed consent was obtained. Instrument: Olympus GIF H 190 J mid size upper endoscope Monitoring: Vital signs and clinical assessment, continuous EKG monitoring, Pulse oximetry, Carbon Dioxide monitoring and blood pressure monitoring were done throughout the procedure. Procedure: The patient was placed in the left lateral decubitis position and pre-procedure medications were administered and a bite block was placed. The endoscope was inserted into the mouth and advanced under direct vision to the third part of duodenum. A careful inspection was made as the upper endoscope was withdrawn including a retroflexed examination of the proximal stomach; Findings and interventions are described below. Findings: Larynx:normal Esophagus: GE junction at 40 cm, diaphragm hiatus at 40 cm, normal mucosa Stomach: nodular areas at pylorus, bx take. There was an erythematous patchy, slightly irregular in the pre pylori area, Biopsies were obtained. Grade 2 flap valve on retroflexed examination of the cardia. Random stomach bx also obtained Duodenum: Normal bulb and descending duodenum, bx taken Intervention: Biopsies as noted above COLONOSCOPY Instrument: Olympus variable stiffness pediatric scope 190L Colonoscopy Monitoring: Vital signs and clinical assessment, continuous EKG monitoring, Pulse oximetry, Carbon Dioxide monitoring and blood pressure monitoring were done throughout the procedure. Colon withdrawal time was 15 minutes. Procedure: The patient was placed in the left lateral decubitis position and pre-procedure medications were administered. After a digital rectal examination of the ano-rectum, the video colonoscope was inserted into the rectum and advanced through the colon to the cecum/TI. The colonoscope was slowly withdrawn in a retrograde panoramic fashion and the colon mucosa was carefully examined including a retroflexed view of the rectum. Findings and interventions are described below. Procedure Difficulty:easy Findings: Terminal Ileum-normal, bx taken random colon bx taken Cecum:normal Ascending Colon: x 2 sessile polyps removed, one was 8-9 mm removed with cold snare and the other was 7 mm removed with forceps Transverse Colon -normal Descending Colon:normal Sigmoid Colon: normal, scattered diverticula seen Rectum: Retroflexion with moderate sized internal hemorrhoids, grade I, 10 mm sessile polyp removed with cold snare Anorectum - normal Colon preparation: [place] Bowel Preparation Scale Right colon; 2 Transverse colon: 2 Left colon; 2 (0 = Unprepared colon segment with mucosa not seen due to solid stool that cannot be cleared. 1 = Portion of mucosa of the colon segment seen, but other areas of the colon segment not well seen due to staining, residual stool and/or opaque liquid. 2 = Minor amount of residual staining, small fragments of stool and/or opaque liquid, but mucosa of colon segment seen well. 3 = Entire mucosa of colon segment seen well with no residual staining, small fragments of stool or opaque liquid) Impression and Post Procedure Diagnosis: Endoscopy Findings: gastritis nodular areas stomach Colonoscopy Findings: polyps internal hemorrhoids diverticular disease Plan: Await Pathology results Repeat Colonoscopy in 3-4 years due to polyps or earlier if clinically indicated High fiber diet leaflet avoid straining at stool, epsom salts and sitz bath, anusol supps or cream if bx neg then consider capsule endoscopy Above findings were reviewed with the patient and relevant handouts were provided if indicated.
[2020-12-31 14:11] VITALS: BP 109/72; PULSE 69; RESP 18; TEMP 36.2; O2SAT 97
[2020-12-31 14:24] VITALS: BP 117/78; PULSE 72; RESP 18; TEMP 36.1; O2SAT 96
== END 2020-12-31 14:50 | disposition home or self-care (01) ==
PROVIDERS: PCP Pediatrics; Visit Provider Internal Medicine Gastroenterology
PROC: (CPT 45385; principal; 2020-12-31 13:30)
DX: D64.9 Anemia, unspecified (principal); D12.2 Benign neoplasm of ascending colon; D12.8 Benign neoplasm of rectum; K57.30 Diverticulosis of large intestine without perforation or abscess without bleeding; K64.0 First degree hemorrhoids; K29.50 Unspecified chronic gastritis without bleeding; B96.81 Helicobacter pylori [H. pylori] as the cause of diseases classified elsewhere; K31.89 Other diseases of stomach and duodenum; K44.9 Diaphragmatic hernia without obstruction or gangrene; K76.0 Fatty (change of) liver, not elsewhere classified; I10 Essential (primary) hypertension; E78.00 Pure hypercholesterolemia, unspecified; Z79.82 Long term (current) use of aspirin; Z79.899 Other long term (current) drug therapy
CPT/HCPCS: 45385; 45380; 43239; 88305; 88342

== ENCOUNTER → 2021-01-04 10:42 | Outpatient (BNV) | payer MEDICARE, MEDICAID, SELFPAY | PROVIDERS: PCP Pediatrics; Visit Provider Internal Medicine | DX: D47.2 Monoclonal gammopathy (principal); Z86.2 Personal history of diseases of the blood and blood-forming organs and certain disorders involving the immune mechanism | CPT/HCPCS: 99213 ==

== ENCOUNTER → 2021-02-01 12:36 | Outpatient (BNVA) | payer MEDICARE, MEDICAID, SELFPAY | PROVIDERS: PCP Pediatrics; Visit Provider Student in an Organized Health Care Education/Training Program | DX: M15.9 Polyosteoarthritis, unspecified (principal) | CPT/HCPCS: 99202 ==

== ENCOUNTER 2021-02-07 14:20 | Outpatient (REF) | payer MEDICARE, MEDICAID, SELFPAY ==
--- NOTE | ~2021-02-07 | XR_ITS ---
EXAMINATION: XR RIGHT HAND AND WRIST XR LEFT HAND AND WRIST CLINICAL INFORMATION: Polyosteoarthritis. COMPARISON: 06/19/2009 TECHNIQUE: 3 views of each hand and wrist. FINDINGS: RIGHT HAND AND WRIST: Again seen is evidence of old healed fractures involving the ulna and radius. Compared to the 2010 study, there is new rounded calcifications in the soft tissues adjacent to the ulna producing a bulge. Some mild degenerative changes present at the radiocarpal joint with some subchondral cysts and small osteophytes. No acute fracture is seen. No other abnormality detected. LEFT HAND AND WRIST: There is a cyst present with sclerotic borders in the navicular which has increased in size since the prior study. No other abnormalities are seen. XR/XR hand wrist RT IMPRESSION: On the right, there are healed fractures distal ulna and radius with new chronic dystrophic rounded calcifications adjacent to the distal ulna and mild radial carpal degenerative change. No evidence of an acute injury. On the left, increasing size of a cyst in the navicular.
--- NOTE | ~2021-02-07 | XR_ITS ---
EXAMINATION: XR RIGHT HAND AND WRIST XR LEFT HAND AND WRIST CLINICAL INFORMATION: Polyosteoarthritis. COMPARISON: 06/19/2009 TECHNIQUE: 3 views of each hand and wrist. FINDINGS: RIGHT HAND AND WRIST: Again seen is evidence of old healed fractures involving the ulna and radius. Compared to the 2010 study, there is new rounded calcifications in the soft tissues adjacent to the ulna producing a bulge. Some mild degenerative changes present at the radiocarpal joint with some subchondral cysts and small osteophytes. No acute fracture is seen. No other abnormality detected. LEFT HAND AND WRIST: There is a cyst present with sclerotic borders in the navicular which has increased in size since the prior study. No other abnormalities are seen. XR/XR hand wrist LT IMPRESSION: On the right, there are healed fractures distal ulna and radius with new chronic dystrophic rounded calcifications adjacent to the distal ulna and mild radial carpal degenerative change. No evidence of an acute injury. On the left, increasing size of a cyst in the navicular.
[2021-02-07 15:02] LABS: MANUAL DIFF FLAG NO
[2021-02-07 15:05] LABS: Basophils Percent Auto 0.4 % (0-2); Eosinophils Absolute Auto 0.1 X10*3/uL (0.0-0.4); Eosinophils Percent Auto 1.4 % (0-4); Hematocrit 42.4 % (42-52); Hemoglobin 14.6 g/dl (14.0-18.0); Imm Gran Abs Auto 0.09 X10*3/uL (0.00-0.03); Imm Gran Pct Auto 1.1 % (0.0-0.4); Lymphocytes Absolute Auto 1.7 X10*3/uL (1.2-4.9); Mean Corpuscular HGB Conc 34.4 g/dl (31.0-36.0); Mean Corpuscular Hemoglobin 29.5 pg (27.0-33.0); Mean Corpuscular Volume 85.7 fL (80-98); Mean Platelet Volume 10.5 fL (9.4-12.4); Monocytes Absolute Auto 0.5 X10*3/uL (0.1-1.2); Monocytes Percent Auto 6.3 % (2-11); Neutrophils Absolute Auto 5.7 X10*3/uL (2.0-8.3); Neutrophils Percent Auto 69.8 % (45-73); Platelet Count 291 X10*3/uL (160-400); Red Blood Count 4.95 X10*6/uL (4.60-5.80); Red Cell Distribution Width 13.8 % (11.0-16.0); White Blood Count 8.1 X10*3/uL (4.8-10.8)
[2021-02-07 16:01] LABS: Erythrocyte Sedimentation Rate 7 MM/HR (0-15)
[2021-02-07 19:50] LABS: Alanine Aminotransferase 48 U/L (0-40); Albumin Level 4.4 g/dL (3.5-5.0); Alkaline Phosphatase 85 U/L (39-117); Anion Gap 15 (12-20); Aspartate Amino Transferase 27 U/L (5-37); Bilirubin Total 0.5 mg/dL (0.0-1.0); Blood Urea Nitrogen 20 mg/dL (9-16); C Reactive Protein 0.08 mg/dL (< or = 0.50); Calcium 9.6 mg/dL (8.4-10.2); Carbon Dioxide 23 mmol/L (22-29); Chloride 108 mmol/L (96-108); Estimated Glomerular Filt Rate 54; Glucose Random 170 mg/dL (60-115); Potassium 4.7 mmol/L (3.3-5.1); Rheumatoid Factor < 15.0 IU/mL (<15.0); Sodium 141 mmol/L (135-145); Total Protein 7.7 g/dL (6.5-8.0)
[2021-02-11 14:51] LABS: Cyclic Citrullinated Peptide <16 UNITS
== END 2021-02-07 14:21 | disposition home or self-care (01) ==
LOC: HO.LAB 14:20
PROVIDERS: PCP Pediatrics; Visit Provider Student in an Organized Health Care Education/Training Program
DX: M15.9 Polyosteoarthritis, unspecified (principal)
CPT/HCPCS: 36415; 73110; 73130; 80053; 85025; 85652; 86140; 86200; 86431

== ENCOUNTER → 2021-02-15 08:32 | Outpatient (BNVA) | payer MEDICARE, MEDICAID, SELFPAY | PROVIDERS: PCP Pediatrics; Visit Provider Internal Medicine Gastroenterology | CPT/HCPCS: Q3014 ==

== ENCOUNTER → 2021-02-20 08:16 | Outpatient (BNVA) | payer MEDICARE, MEDICAID, SELFPAY | PROVIDERS: PCP Pediatrics; Visit Provider Student in an Organized Health Care Education/Training Program | CPT/HCPCS: Q3014 ==

== ENCOUNTER 2021-02-22 12:02 | Outpatient (REF) | payer MEDICARE, MEDICAID, SELFPAY ==
[2021-02-23 15:47] LABS: H Pylori Breath Test Negative (Negative)
== END 2021-02-22 12:03 | disposition home or self-care (01) ==
LOC: CF 12:02
PROVIDERS: PCP Pediatrics; Visit Provider Internal Medicine Gastroenterology
DX: Z87.19 Personal history of other diseases of the digestive system (principal)
CPT/HCPCS: 36415; 83013

== ENCOUNTER 2021-03-28 14:44 | Outpatient (REF) | payer MEDICARE, MEDICAID, SELFPAY ==
[2021-03-28 15:14] LABS: MANUAL DIFF FLAG NO
[2021-03-28 15:24] LABS: Basophils Absolute Auto 0.1 X10*3/uL (0.0-0.2); Basophils Percent Auto 0.6 % (0-2); Eosinophils Absolute Auto 0.3 X10*3/uL (0.0-0.4); Eosinophils Percent Auto 3.4 % (0-4); Hematocrit 43.2 % (42-52); Hemoglobin 14.9 g/dl (14.0-18.0); Imm Gran Abs Auto 0.06 X10*3/uL (0.00-0.03); Imm Gran Pct Auto 0.7 % (0.0-0.4); Lymphocytes Absolute Auto 1.9 X10*3/uL (1.2-4.9); Lymphocytes Percent Auto 22.2 % (20-40); Mean Corpuscular HGB Conc 34.5 g/dl (31.0-36.0); Mean Corpuscular Hemoglobin 28.9 pg (27.0-33.0); Mean Corpuscular Volume 83.9 fL (80-98); Mean Platelet Volume 10.3 fL (9.4-12.4); Monocytes Absolute Auto 0.6 X10*3/uL (0.1-1.2); Monocytes Percent Auto 7.4 % (2-11); Neutrophils Absolute Auto 5.6 X10*3/uL (2.0-8.3); Neutrophils Percent Auto 65.7 % (45-73); Platelet Count 275 X10*3/uL (160-400); Red Blood Count 5.15 X10*6/uL (4.60-5.80); Red Cell Distribution Width 12.5 % (11.0-16.0); White Blood Count 8.5 X10*3/uL (4.8-10.8)
[2021-03-29 08:36] LABS: Lyme Abs Screen <0.90 index
== END 2021-03-28 14:45 | disposition home or self-care (01) ==
LOC: HO.LAB 14:44
PROVIDERS: PCP Pediatrics; Visit Provider Pediatrics
DX: S20.362A Insect bite (nonvenomous) of left front wall of thorax, initial encounter (principal); W57.XXXA Bitten or stung by nonvenomous insect and other nonvenomous arthropods, initial encounter; Y93.9 Activity, unspecified; Y92.9 Unspecified place or not applicable; Y99.9 Unspecified external cause status
CPT/HCPCS: 36415; 85025; 86617; 86618

== ENCOUNTER 2022-05-19 07:58 | Emergency (ER) | payer MEDICARE, MEDICAID, SELFPAY ==
--- NOTE | ~2022-05-19 | XR_ITS ---
EXAMINATION: XR CHEST CLINICAL INFORMATION: Cough. Chest congestion. COMPARISON: December 17, 2020. TECHNIQUE: Portable upright AP view of the chest was obtained. FINDINGS: No significant abnormality is noted involving the heart, lungs, mediastinum, bony thorax or soft tissues. XR/XR chest 1V IMPRESSION: Unremarkable examination.
[2022-05-19 08:00] VITALS: BP 120/90; PULSE 103; RESP 20; TEMP 36.6; O2SAT 97; BMI 28.5
--- NOTE | 2022-05-19 08:59 | ED_ITS ---
HPI - URI/Sore Throat General Chief Complaint: Upper Respiratory Symptoms Stated Complaint: cough congestion sore throat Time Seen by Provider: 05/19/22 08:18 Source: patient and family Mode of arrival: ambulatory Limitations: language barrier (Latvian-speaking) History of Present Illness HPI Narrative: 62yoM c PMHx of anemia, fatty liver, HTN, HLD and arthritis was presenting to the ER with significant other at bedside with complaints of subjective fevers, chills, fatigue, malaise, nasal congestion/rhinorrhea, sore throat, chest congestion with productive cough with thick yellow colored sputum since Thursday night worse today. Apparently significant other at bedside has similar symptoms prior to the patient although her symptoms have improved and resolved. They deny any other sick contacts. He denies any measured fevers, dizziness, headaches, neck pain/stiffness, trouble swallowing or breathing, changes in voice, visual changes, jaw pain, chest pain or shortness of breath, dyspnea on exertion, orthopnea, palpitations, paresthesias, nausea/vomiting/diarrhea constipation, black or bloody stools, abdominal pain, back pain, flank pain, lower extremity edema or calf tenderness, rashes or any other symptoms complaints or concerns at this time. MD elicited complaint: fever, cough, sore throat, rhinorrhea and nasal congestion Onset (ago): day(s) (2) Consistency: constant Severity: moderate Description of mucous: yellow Able to tolerate fluids by mouth: Yes Exacerbating factors: swallowing Relieving factors: nothing Context: sick contacts (Significant other had similar symptoms few days prior to the patient although her symptoms have improved and resolved) Associated symptoms: fever, chills, myalgias, rhinorrhea, nasal congestion, sore throat and cough Treatments prior to arrival: none Related Data Home Medications Medication Instructions Recorded Confirmed amlodipine 10 mg tablet 1 tab PO DAILY 12/17/20 03/07/22 aspirin 81 mg tablet,delayed 1 tab PO DAILY 12/17/20 03/07/22 release benazepril 10 mg tablet 1 tab PO DAILY 12/17/20 03/07/22 metformin 1,000 mg tablet 1 tab PO BID 03/07/22 03/07/22 Previous Rx's Medication Instructions Recorded pantoprazole 20 mg tablet,delayed 20 mg PO BID 2 weeks #28 tabs 01/10/21 release albuterol sulfate 90 mcg/actuation 1 inh inhalation QID PRN shortness 05/19/22 aerosol inhaler of breath or wheezing #8.5 grams codeine 10 mg-guaifenesin 100 mg/5 5 ml PO Q6H PRN cold symptoms #120 05/19/22 mL oral liquid (Guaifenesin AC) mL nirmatrelvir 300 mg (150 mg See Rx Instructions PO .COMPLEX 05/19/22 x2)-ritonavir 100 mg tablet,dose #15 ea pack(EUA) (Paxlovid) Allergies Allergy/AdvReac Type Severity Reaction Status Date / Time amoxicillin Allergy Severe low Verified 05/19/22 08:03 plaquette Review of Systems Review of Systems: Constitutional : + chills/fatigue/malaise, No Weight loss, No Fever, No Night Sweats ENT/Mouth : + sore throat/nasal congestion/rhinorrhea, No Hearing loss, No Ear Pain,No Sinus Pain, No Hoarseness,No Swallowing Difficulty Eyes: No Eye Pain, No Swelling, No Redness, No Foreign Body, No Discharge, No Vision Changes Cardiovascular : No Chest Pain, No SOB, No Dyspnea on Exertion, No Orthopnea, No Edema, No Palpitations Respiratory : + Cough, + Sputum, No Wheezing, No Smoke Exposure, No Dyspnea Gastrointestinal : No Nausea, No Vomiting, No Diarrhea, No Constipation, No abdominal Pain, No Hematochezia, No Melena Genitourinary : no irregular bleeding, No Dysuria, No Urinary Frequency, No Hematuria, No Urinary Incontinence, No Urgency, No Flank Pain, No Urinary Flow Changes, No Hesitancy Musculoskeletal : No joint pain, + Myalgias, No Joint Swelling Skin : No Skin Lesions, No rash Neuro : No Weakness, No Numbness, No Paresthesias, No Loss of Consciousness, No Dizziness, No Headache Psych : No Anxiety/Panic, No Depression, No SI/HI/AH/VH, No Social Issues, Heme/Lymph: No Bruising, No Bleeding,No Lymphadenopathy Endocrine : No Polyuria, No Polydipsia, No Temperature Intolerance Yes all other systems are reviewed and are negative [facility] Past Medical History Attestation statement: The following information was validated with the patient. Source: old records reviewed, obtained from family and nursing notes reviewed Medical History (Updated 05/19/22 @ 10:32 by RACHEAL Russell) Anemia Arthritis Depression Fatty liver High cholesterol Hypertension Surgical History History of total bilateral knee replacement History of umbilical hernia repair Hx of colonoscopy Hx of hernia repair Family History Family History Maternal Uncle Throat cancer Mother Stroke Diabetes Paternal Uncle Stroke Maternal Grandfather Heart disease Maternal Aunt Diabetes Social History Social History Household Members: Spouse and Family Housing: House Do you presently have visiting nurse or other home services: Yes Alcohol intake: current Alcohol intake frequency: holidays/special occasions only Patient Tobacco Use Status: Never used Tobacco Advance Directives: No Advance Directives Information Provided: Yes service: No Current occupational status: employed Physical Exam Vital Signs: Vital Signs: Last Vital Signs Temp 98.8 F 05/19/22 09:48 Pulse 93 05/19/22 09:48 Resp 16 05/19/22 09:48 BP 137/80 05/19/22 09:48 Pulse Ox 93 05/19/22 09:48 O2 Del Method 05/19/22 09:48 BMI result Body Mass Index 28.5 vital signs have been reviewed as normal and appeared to be correct. Blood pressure 120/90. Heart rate 103. Respiration rate normal. Temperature normal. Oxygen saturation normal. Appearance: Alert. Oriented X3. No acute distress. Head: Normal external exam. Normocephalic. Atraumatic. Eyes: PERRLA. EOMI. Conjunctiva and sclera normal. Eyelids normal. ENT: EAC normal. TM's Normal. Posterior pharynx/tonsils erythematous although no exudate is noted. Uvula midline. Moist mucous membranes. No lesions/ulcerations or masses noted on the tongue. Normal voice. No trismus noted. No drooling noted. No muffled voice noted. Neck: Normal inspection. Neck supple. FROM. No adenopathy. Thyroid Normal. No tracheal deviation noted. No crepitus is noted. No meningeal signs. No neck mass noted. No signs of trauma noted. CVS: Normal heart rate and rhythm. Heart sound normal. Pulses normal throughout. No murmurs/rales/gallops. Respiratory: No respiratory distress. Painless inspiration. Breath sounds normal. No wheezes/rales/rhonchi noted. Chest nontender. No crepitus is noted. No accessory muscle usage noted or decreased air movement noted. No signs of trauma. Back: Full range of motion noted. Nontender. Skin: Skin warm and dry. Normal skin color. Normal skin turgor. No rashes/lesions/lacerations noted. Extremities: No lower extremity edema. No calf tenderness is noted. Extremities exhibit normal range of motion and nontender. Neuro: Oriented X 3. No motor deficit. No sensory deficit. Reflexes normal. Normal steady gait. No focal neuro deficits noted. CN's II-XII intact bilaterally? Vascular: + radial pulses. Normal cap refill. No cyanosis noted to upper extremity nails Course Course Course Narrative: 8:30am - 62yoM c PMHx of anemia, fatty liver, HTN, HLD and arthritis was presenting to the ER with significant other at bedside with complaints of subjective fevers, chills, fatigue, malaise, nasal congestion/rhinorrhea, sore throat, chest congestion with productive cough with thick yellow colored sputum since Thursday night worse today. Apparently significant other at bedside has similar symptoms prior to the patient although her symptoms have improved and resolved. They deny any other sick contacts. Plan: Will obtain COVID/RSV/flu swab, strep, chest x-ray and re-evaluate. Reevaluation(s) Reevaluation #1: Patient positive for COVID. Negative for strep/RSV/flu. Chest x-ray negative. I checked the patient's medications so I can prescribe him AntiViral Paxlovid and he is currently on a statin I explained to him that he will need to discontinue the statin for approximately 8 days and then he can restart if he is going to take this antiviral. Patient understands. Along with instructions to self isolate per CDC guidelines and to return if any new or worsening symptoms and to follow up with primary care provider. Patient understands agrees with this plan. Time: 10:30 MDM - URI/Sore Throat Differential Diagnosis Differential diagnosis: Likely upper respiratory infection, sinusitis, viral infection, bronchitis, influenza and pharyngitis Medical Records Attestation: I reviewed the patient's medical records. Lab Data Attestation: I reviewed the patient's lab results. Labs: Lab Results 05/19/22 05/19/22 Range/Units 09:08 09:30 Influenza Type A (PCR) NEGATIVE (Negative) Influenza Type B (PCR) NEGATIVE (Negative) RSV RNA Qual (PCR) NEGATIVE (Negative) SARS-CoV-2 RNA (RT-PCR) POSITIVE A (Negative) S. pyogenes GrpA ARISTEO Negative (Negative) Imaging Data Chest x-ray: Attestation: I personally reviewed and interpreted this imaging study as follows: Radiologist's impression: FINDINGS: No significant abnormality is noted involving the heart, lungs, mediastinum, bony thorax or soft tissues. XR/XR chest 1V IMPRESSION: Unremarkable examination. Discharge Plan Discharge Clinical Impression: COVID-19 Patient Disposition: Home, Self-Care Instructions: COVID-19 (Coronavirus Disease 2019) (ED) Prescriptions: New Paxlovid (EUA) 300 mg (150 mg x 2)-100 mg tablets,dose pack See Rx Instructions PO .COMPLEX Qty: 15 0RF Rx Instructions: take TWO 150 mg tablets of nirmatrelvir with ONE 100 mg tablet of ritonavir twice daily for 5 days. Dip 15 pills codeine-guaifenesin [Guaifenesin AC] 10-100 mg/5 mL liquid 5 ml PO Q6H PRN (Reason: cold symptoms) Qty: 120 0RF albuterol sulfate 90 mcg/actuation HFA aerosol inhaler 1 inh inhalation QID PRN (Reason: shortness of breath or wheezing) Qty: 8.5 0RF No Action pantoprazole 20 mg tablet,delayed release (DR/EC) 20 mg PO BID 14 Days Qty: 28 0RF aspirin 81 mg tablet,delayed release (DR/EC) 1 tab PO DAILY amlodipine 10 mg tablet 1 tab PO DAILY benazepril 10 mg tablet 1 tab PO DAILY metformin 1,000 mg tablet 1 tab PO BID Referrals: Silvia Patton MD [Primary Care Provider] - 5 days Stand Alone Forms: Work/School Release
[2022-05-19 09:48] VITALS: BP 137/80; PULSE 93; RESP 16; TEMP 37.1; O2SAT 93
[2022-05-19 09:50] LABS: Strep A Nucleic Acid Negative (Negative)
[2022-05-19 10:09] LABS: Influenza A PCR NEGATIVE (Negative); Influenza B PCR NEGATIVE (Negative); Resp Syncy Virus RNA Qual PCR NEGATIVE (Negative); SARS COV2 PCR INHOUSE POSITIVE (Negative)
[2022-05-19 10:39] VITALS: O2SAT 95
--- NOTE | 2022-05-19 11:03 | PC.NURSE ---
PT AWAKE, ALERT AND ORIENTED X 3. SKIN WARM AND DRY. RESP UNLABORED. SPEAKING IN FULL CLEAR SENTENCES. PT REPORTS GENERAL MALAISE AND BODY ACHES. AMBULATORY SAT 95% NO ACUTE DISTRESS NOTED. AWARE AND AGREEABLE TO DC PLAN
== END 2022-05-19 11:06 | disposition home or self-care (01) ==
PROVIDERS: Physician Assistant Medical; Emergency Provider Emergency Medicine; PCP Pediatrics
DX: U07.1 COVID-19 (principal); I10 Essential (primary) hypertension; E78.5 Hyperlipidemia, unspecified; Z79.899 Other long term (current) drug therapy; Z79.82 Long term (current) use of aspirin
CPT/HCPCS: 0241U; 36415; 71045; 87651; 99284

== ENCOUNTER 2022-05-23 08:30 | Emergency (ER) | payer MEDICARE, MEDICAID, SELFPAY ==
[2022-05-23 08:42] VITALS: BP 155/77; PULSE 84; RESP 20; TEMP 37.2; O2SAT 98; BMI 28.0
--- NOTE | 2022-05-23 09:32 | ED.GENADULT ---
HPI - General Adult General Chief complaint: General Medical Stated complaint: Cold in Eyes COVID + 5 Days Ago Time Seen by Provider: 05/23/22 09:20 Source: patient Mode of arrival: ambulatory Limitations: no limitations History of Present Illness HPI narrative: Patient is a 62 year old male with a PMH of Anemia, Arthritis, Depression, HTN and Osteoarthritis presents to the ED today with bilateral eye redness ongoing for two days now. Patient states that he came to the ED on Thursday with flu like symptoms and tested positive for COVID that day. Patient reports being given some Robitussin with codeine for the sore throat which has resolved now. He reports that his eyes are occasionally itchy and has watery discharge coming out, he reports that he feels like there is something in his eyes but denies any thick or yellowish discharge. Patient states taht he has been fatigued more than usual and his girlfriend noticed that he has become pale. Patient reports not having blood work done in a while. Patient states that his partner currently has flu like symptoms but no eye redness. He denies any vision changes, blurry vision, dizziness, contact lens use, recent trauma, recent hospitalization, recent travel. Patient denies fever, nausea, vomiting, chest pain, SOB, abdominal pain, diarrhea. Patient denies any other issues, concerns or complaints at this time. complaint: Eye redness Onset (ago): day(s) (2 days) Location: eyes Radiation: non-radiation Severity: moderate Severity scale (1-10): 5 Quality: other (itchy) Pain Consistency: intermittent Relieving factors: none Exacerbating factors: none Associated symptoms: denies other symptoms Related Data Home Medications Medication Instructions Recorded Confirmed amlodipine 10 mg tablet 1 tab PO DAILY 12/17/20 03/07/22 aspirin 81 mg tablet,delayed 1 tab PO DAILY 12/17/20 03/07/22 release benazepril 10 mg tablet 1 tab PO DAILY 12/17/20 03/07/22 metformin 1,000 mg tablet 1 tab PO BID 03/07/22 03/07/22 Previous Rx's Medication Instructions Recorded pantoprazole 20 mg tablet,delayed 20 mg PO BID 2 weeks #28 tabs 01/10/21 release albuterol sulfate 90 mcg/actuation 1 inh inhalation QID PRN shortness 05/19/22 aerosol inhaler of breath or wheezing #8.5 grams codeine 10 mg-guaifenesin 100 mg/5 5 ml PO Q6H PRN cold symptoms #120 05/19/22 mL oral liquid (Guaifenesin AC) mL nirmatrelvir 300 mg (150 mg See Rx Instructions PO .COMPLEX 05/19/22 x2)-ritonavir 100 mg tablet,dose #15 ea pack(EUA) (Paxlovid) Allergies Allergy/AdvReac Type Severity Reaction Status Date / Time amoxicillin Allergy Severe low Verified 05/23/22 08:46 plaquette Review of Systems Review of Systems: Constitutional : + Fatigue, No fevers, no chills, No changes in activity, No lethargy, No recent prior head injury, No agitation, No increased fussiness ENT/Mouth : No Ear Pain, No Nasal discharge/drainage, no sore throat Eyes: + eye itchiness and redness, + watery discharge, no vision changes/blurry/decreased vision, No Eye Pain, No Swelling, No Foreign Body, No Photophobia, , no drainage, no eyelid edema, no contact lens uses, no recent welding, no bleeding Cardiovascular : No Chest Pain, No SOB Respiratory : + productive cough, no dyspnea Gastrointestinal : No Nausea, No Vomiting, No abdominal Pain Genitourinary : No Dysuria, No Urinary Frequency, No Urinary Incontinence, No Urgency, No Flank Pain Musculoskeletal : No joint pain, No neck stiffness, No back pain/injury Skin : No lacerations Neuro : No unsteady gait, No Paresthesias, No Loss of Consciousness, No altered mental status, No dizziness, No Headache Denies past medical history of HIV, recent trauma, coagulopathy, recent spinal/ epidural procedure, new medication, URI symptoms, close contacts with similar symptoms, tick bite, or known CO2 exposure. Yes all other systems are reviewed and are negative [facility] Past Medical History Attestation statement: The following information was validated with the patient. Source: old records reviewed and nursing notes reviewed Medical History Anemia Arthritis Depression Fatty liver High cholesterol Hypertension Surgical History History of total bilateral knee replacement History of umbilical hernia repair Hx of colonoscopy Hx of hernia repair Family History Family History Maternal Uncle Throat cancer Mother Stroke Diabetes Paternal Uncle Stroke Maternal Grandfather Heart disease Maternal Aunt Diabetes Social History Social History Household Members: Spouse and Family Housing: House Do you presently have visiting nurse or other home services: Yes Alcohol intake: current Alcohol intake frequency: holidays/special occasions only Patient Tobacco Use Status: Never used Tobacco Advance Directives: Yes Advance Directives Information Provided: Yes Advance Directives on File: No service: No Current occupational status: employed Physical Exam ED Vital Signs: Vital Signs - 24 hr 05/23/22 08:42 05/23/22 10:02 Temperature 99.0 F 97 F Pulse Rate 84 87 Respiratory Rate 20 16 Blood Pressure 155/77 H 137/97 H Pulse Oximetry 98 96 Oxygen Delivery Method Room Air Room Air BMI result Body Mass Index 28.0 vital signs have been reviewed as normal and appeared to be correct. Blood pressure is 155/77. Heart rate normal. Respiration rate normal. Temperature normal. Oxygen saturation normal. Appearance: Alert. Oriented X3. No acute distress. Head: Normal external exam. Normocephalic. Atraumatic. Eyes: PERRLA. EOMI. Conjunctiva is normal, sclera appears red bilaterally. no purulent discharge noted. Not consistent with bacterial conjunctivitis. Eyelids normal. ENT: EAC normal. TM's Normal. Pharynx normal. Uvula midline. Moist mucous membranes. No lesions/ulcerations or masses noted on the tongue. Normal voice. No trismus noted. No drooling noted. No muffled voice noted. Neck: Normal inspection. Neck supple. FROM. Thyroid Normal. No tracheal deviation noted. No neck mass noted. No signs of trauma noted. CVS: Normal heart rate and rhythm. Heart sound normal. No murmurs/rales/gallops. Respiratory: No respiratory distress. Painless inspiration. Breath sounds normal. No wheezes/rales/rhonchi noted. Chest nontender. No signs of trauma noted. No accessory muscle usage noted or decreased air movement noted. No signs of trauma. Abdomen: Soft and nontender. Bowel sounds normal in all 4 quadrants. No distention noted. No visible injury noted. Back: Full range of motion noted. Nontender. No signs of trauma. No rashes/lesion/induration/fluctuance or signs of infection noted. Skin: Skin warm and dry. Normal skin color. Normal skin turgor. No rashes/lesions/lacerations noted. Extremities: No lower extremity edema. No calf tenderness is noted. Extremities exhibit normal range of motion and nontender. Neuro: Oriented X 3. No motor deficit. No sensory deficit. Normal steady gait. No focal neuro deficits noted. ? Vascular: Normal cap refill. No cyanosis noted to upper extremity nails and lower extremity toes nails. Course Course Course Narrative: Patient is a 62 year old male with a PMH of Anemia, Arthritis, Depression, HTN and Osteoarthritis presents to the ED today with bilateral eye redness ongoing for two days now. Patient states that he came to the ED on Thursday with flu like symptoms and tested positive for COVID that day with most of symptoms resolved now. Patient re[orts recent fatigue and skin paleness and states that he has not had blood work fo his anemia while. Patient denies any vision changes, blurry vision, dizziness, contact lens use, recent trauma, recent hospitalization, recent travel. Patient denies fever, nausea, vomiting, chest pain, SOB, abdominal pain, diarrhea. On physical exam, BP was elevated at 155/77, a repeat BP was done and was 137/97. Patient was alert and oriented and in no acute respiratory distress. Sclera was noted to have bilateral erythema and watery discharge with no evidence of foreign body or trauma. Ears, nose and mouth were without any abnormalities. Lungs were CTAB, heart had a RRR with no murmurs/rubs/gallops. Plan: Labs; Labs obtained and all within normal limits no evidence of anemia. Ketotifen fumarate 0.025% oph eye drops, 1 drop on both eye onces daily for eye irritation and itchiness. Will DC home with instructions to return if any new or worsening symptoms to follow up with primary care provider. Patient understands agrees with this plan. Medications Administered Discontinued Medications Generic Name Dose Route Start Last Admin Trade Name Freq PRN Reason Stop Dose Admin Ketotifen Fumarate 1 drop 05/23/22 09:52 05/23/22 11:05 Ketotifen Fumarate 0.025% Oph 5 Ml Drpbtl EYE-BOTH 05/23/22 09:53 1 drop ONCE ONE Administration Medical Decision Making Medical Decision Making Lab Attestation: I reviewed the patient's lab results. Discharge Plan Discharge Clinical Impression: Acute viral conjunctivitis Patient Disposition: Home, Self-Care Instructions: Conjunctivitis (ED) Prescriptions: No Action pantoprazole 20 mg tablet,delayed release (DR/EC) 20 mg PO BID 14 Days Qty: 28 0RF aspirin 81 mg tablet,delayed release (DR/EC) 1 tab PO DAILY amlodipine 10 mg tablet 1 tab PO DAILY benazepril 10 mg tablet 1 tab PO DAILY metformin 1,000 mg tablet 1 tab PO BID Paxlovid (EUA) 300 mg (150 mg x 2)-100 mg tablets,dose pack See Rx Instructions PO .COMPLEX Qty: 15 0RF Rx Instructions: take TWO 150 mg tablets of nirmatrelvir with ONE 100 mg tablet of ritonavir twice daily for 5 days. Dip 15 pills codeine-guaifenesin [Guaifenesin AC] 10-100 mg/5 mL liquid 5 ml PO Q6H PRN (Reason: cold symptoms) Qty: 120 0RF albuterol sulfate 90 mcg/actuation HFA aerosol inhaler 1 inh inhalation QID PRN (Reason: shortness of breath or wheezing) Qty: 8.5 0RF Referrals: Silvia Patton MD [Primary Care Provider] - 2 days Interventions: ED Discharge Assessment Last Done: 05/23/22 11:13 Discharge Date/Time: 05/23/22 11:14
[2022-05-23 10:02] VITALS: BP 137/97; PULSE 87; RESP 16; TEMP 36.1; O2SAT 96
[2022-05-23 10:04] LABS: Basophils Percent Auto 0.5 % (0-2); Eosinophils Absolute Auto 0.3 X10*3/uL (0.0-0.4); Eosinophils Percent Auto 3.4 % (0-4); Hematocrit 42.7 % (42.0-52.0); Hemoglobin 14.7 g/dl (14.0-18.0); Imm Gran Abs Auto 0.14 X10*3/uL (0.00-0.03); Imm Gran Pct Auto 1.8 % (0.0-0.4); Lymphocytes Absolute Auto 1.5 X10*3/uL (1.2-4.9); Lymphocytes Percent Auto 18.9 % (20-40); MANUAL DIFF FLAG NO; Mean Corpuscular HGB Conc 34.4 g/dl (31.0-36.0); Mean Corpuscular Hemoglobin 28.8 pg (27.0-33.0); Mean Corpuscular Volume 83.7 fL (80.0-98.0); Monocytes Absolute Auto 0.5 X10*3/uL (0.1-1.2); Monocytes Percent Auto 5.8 % (2-11); Neutrophils Absolute Auto 5.5 x10*3/uL (2.0-8.3); Neutrophils Percent Auto 69.6 % (45-73); Platelet Count 306 X10*3/uL (160-400); Red Cell Distribution Width 12.2 % (11.0-16.0); White Blood Count 7.9 X10*3/uL (4.8-10.8)
[2022-05-23 10:38] LABS: Alanine Aminotransferase 38 U/L (0-40); Albumin Level 4.1 g/dL (3.5-5.0); Alkaline Phosphatase 90 U/L (39-117); Anion Gap 13 (12-20); Aspartate Amino Transferase 22 U/L (5-37); Bilirubin Total 0.3 mg/dL (0.0-1.0); Blood Urea Nitrogen 17 mg/dL (9-16); Calcium 9.5 mg/dL (8.4-10.2); Carbon Dioxide 25 mmol/L (22-29); Chloride 103 mmol/L (96-108); Creatinine Clr Calc Pharmacy 96.6; Estimated Glomerular Filt Rate > 60; Glucose Random 200 mg/dL (60-115); Magnesium 1.9 mg/dL (1.6-2.6); Potassium 4.4 mmol/L (3.3-5.1); Sodium 137 mmol/L (135-145); Total Protein 7.3 g/dL (6.5-8.0)
[2022-05-23] MEDS: Ketotifen Fumarate 0.025% Oph 5 ML DRPBTL 1 DROP EYE-BOTH (11:05)
== END 2022-05-23 11:14 | disposition home or self-care (01) ==
PROVIDERS: Physician Assistant Medical; Emergency Provider Emergency Medicine Emergency Medical Services; PCP Pediatrics
DX: H10.33 Unspecified acute conjunctivitis, bilateral (principal); U07.1 COVID-19; Z79.899 Other long term (current) drug therapy
CPT/HCPCS: 36415; 80053; 83735; 85025; 99283

== ENCOUNTER → 2022-07-02 13:05 | Outpatient (BNVA) | payer MEDICARE, MEDICAID, SELFPAY | PROVIDERS: PCP Pediatrics; Visit Provider Urology | DX: N32.81 Overactive bladder (principal); R39.15 Urgency of urination | CPT/HCPCS: 51798; 99202 ==

== ENCOUNTER → 2022-09-05 14:57 | Outpatient (BNVA) | payer MEDICARE, MEDICAID, SELFPAY | PROVIDERS: PCP Pediatrics; Visit Provider Urology | DX: N32.81 Overactive bladder (principal) | CPT/HCPCS: 52000; 99212 ==

== ENCOUNTER 2022-09-18 15:36 | Emergency (ER) | payer MEDICARE, MEDICAID, SELFPAY ==
--- NOTE | ~2022-09-18 | XR_ITS ---
EXAMINATION: XR CHEST CLINICAL INFORMATION: Cough and SOB COMPARISON: None available. TECHNIQUE: 2 views of the chest were obtained. FINDINGS: No significant abnormality is noted involving the heart, lungs, mediastinum, bony thorax or soft tissues. XR/XR chest 2V IMPRESSION: Unremarkable chest examination.
--- NOTE | 2022-09-18 16:32 | ED.URI ---
HPI - URI/Sore Throat General Chief Complaint: General Medical <RACHEAL Eden Last Filed: 09/18/22 16:34> Stated Complaint: coughing,sob <RACHEAL Eden Last Filed: 09/18/22 16:34> Time Seen by Provider: 09/18/22 19:34 <RACHEAL Eden Last Filed: 09/18/22 16:34> Source: patient <RACHEAL Benjamin Last Filed: 09/18/22 20:53> Mode of arrival: ambulatory <RACHEAL Benjamin Last Filed: 09/18/22 20:53> Limitations: no limitations <RACHEAL Benjamin Last Filed: 09/18/22 20:53> History of Present Illness HPI Narrative: This is a 62-year-old male history of anxiety, depression, anemia, hypertension, hypercholesterolemia presenting to the emergency department for evaluation of fatigue, malaise, productive cough of thick yellow sputum, chest pain shortness of breath only with cough the past 5 days not improving. Patient reports that his is sick at home with similar symptoms. Patient denies fevers, chills, abdominal pain, nausea, vomiting, diarrhea, headache, vision changes, dizziness and weakness. He tells me he does not have chest pain or shortness of breath at rest only when he coughs. No history of PE or DVT. <RACHEAL Benjamin Last Filed: 09/18/22 20:53> Related Data Home Medications: Home Medications Medication Instructions Recorded Confirmed amlodipine 10 mg tablet 1 tab PO DAILY 12/17/20 09/05/22 aspirin 81 mg tablet,delayed 1 tab PO DAILY 12/17/20 09/05/22 release benazepril 10 mg tablet 1 tab PO DAILY 12/17/20 09/05/22 metformin 1,000 mg tablet 1 tab PO BID 03/07/22 09/05/22 rosuvastatin 5 mg tablet 5 mg PO DAILY 07/02/22 09/05/22 tramadol 50 mg tablet 50 mg PO BID PRN 07/02/22 09/05/22 Previous Rx's Medication Instructions Recorded pantoprazole 20 mg tablet,delayed 20 mg PO BID 2 weeks #28 tabs 01/10/21 release albuterol sulfate 90 mcg/actuation 1 inh inhalation QID PRN shortness 05/19/22 aerosol inhaler of breath or wheezing #8.5 grams codeine 10 mg-guaifenesin 100 mg/5 5 ml PO Q6H PRN cold symptoms #120 05/19/22 mL oral liquid (Guaifenesin AC) mL nirmatrelvir 300 mg (150 mg See Rx Instructions PO .COMPLEX 05/19/22 x2)-ritonavir 100 mg tablet,dose #15 ea pack(EUA) (Paxlovid) mirabegron 50 mg tablet,extended 50 mg PO DAILY 30 days #30 tabs 07/02/22 release 24 hr (Myrbetriq) oxybutynin chloride 5 mg 5 mg PO DAILY 30 days #30 tabs 09/05/22 tablet,extended release 24 hr ciprofloxacin HCl 500 mg tablet 500 mg PO BID UTI 3 days #6 tabs 09/11/22 albuterol sulfate 90 mcg/actuation 2 inh inhalation Q4-6H PRN 09/18/22 breath activated powder inhaler shortness of breath or wheezing #1 ea doxycycline hyclate 100 mg capsule 100 mg PO BID 10 days #20 caps 09/18/22 prednisone 20 mg tablet 40 mg PO DAILY 5 days #10 tabs 09/18/22 <RACHEAL Eden - Last Filed: 09/18/22 16:34> Allergies/Adverse Reactions: Allergies Allergy/AdvReac Type Severity Reaction Status Date / Time amoxicillin Allergy Severe low Verified 09/05/22 15:10 plaquette <RACHEAL Eden - Last Filed: 09/18/22 16:34> Review of Systems Review of Systems: Constitutional : No Weight loss, No Fever, No Chills, + Fatigue, + Malaise ENT/Mouth : No sore throat, No Rhinorrhea Eyes: No Eye Pain, No Swelling, No Redness Cardiovascular : + Chest Pain, + SOB, No Dyspnea on Exertion, No Orthopnea, No Edema, No Palpitations Respiratory : + Cough, + Sputum, No Wheezing Gastrointestinal : No Nausea, No Vomiting, No Diarrhea, No Constipation, No abdominal Pain, No Hematochezia, No Melena Genitourinary : No Dysuria, No Urinary Frequency, No Hematuria, Musculoskeletal : No joint pain, No Myalgias, No Joint Swelling Skin : No Skin Lesions, No rash Neuro : No Weakness, No Numbness, No Dizziness, No Headache Psych : No Anxiety/Panic, No Depression All other systems reviewed and are negative <RACHEAL Benjamin - Last Filed: 09/18/22 20:53> Yes all other systems are reviewed and are negative <RACHEAL Benjamin - Last Filed: 09/18/22 20:53> [facility] Past Medical History Attestation statement: The following information was validated with the patient. <RACHEAL Benjamin - Last Filed: 09/18/22 20:53> Source: old records reviewed and nursing notes reviewed <RACHEAL Benjamin - Last Filed: 09/18/22 20:53> Medical History: Medical History Anemia Arthritis Depression Fatty liver High cholesterol Hypertension <RACHEAL Eden - Last Filed: 09/18/22 16:34> Surgical History: Surgical History History of total bilateral knee replacement History of umbilical hernia repair Hx of colonoscopy Hx of hernia repair <RACHEAL Eden - Last Filed: 09/18/22 16:34> Family History Family History: Family History Maternal Uncle Throat cancer Mother Stroke Diabetes Paternal Uncle Stroke Maternal Grandfather Heart disease Maternal Aunt Diabetes <RACHEAL Eden - Last Filed: 09/18/22 16:34> Social History Social History: Social History Household Members: Spouse and Family Housing: House Do you presently have visiting nurse or other home services: Yes Alcohol intake: current Alcohol intake frequency: holidays/special occasions only Patient Tobacco Use Status: Never used Tobacco Advance Directives: No Advance Directives Information Provided: Yes service: No Current occupational status: employed <RACHEAL Eden - Last Filed: 09/18/22 16:34> Physical Exam Vital Signs: Vital Signs: Last Vital Signs Temp 98.6 F 04/06/23 16:33 Pulse 87 09/18/22 16:33 Resp 16 09/18/22 16:33 BP 139/89 09/18/22 16:33 Pulse Ox 96 09/18/22 16:33 O2 Del Method Room Air 09/18/22 16:33 BMI result Body Mass Index 27.7 <RACHEAL Eden - Last Filed: 09/18/22 16:34> Vital Signs: Last Vital Signs Temp 98.6 F 09/18/22 16:33 Pulse 87 09/18/22 16:33 Resp 16 09/18/22 16:33 BP 139/89 09/18/22 16:33 Pulse Ox 96 09/18/22 16:33 O2 Del Method Room Air 09/18/22 16:33 BMI result Body Mass Index 27.7 Vital signs stable <RACHEAL Benjamin - Last Filed: 09/18/22 20:53> Appearance: Alert.? Oriented X3.? No acute distress.? Head: Normocephalic, atraumatic, no step-offs or deformities Eyes: Pupils equal, round and reactive to light.? Neck: Normal inspection.? Neck supple.? CVS: Normal heart rate and rhythm.? Pulses normal.? Respiratory: No respiratory distress.? Breath sounds diminished bilaterally with faint crackles and right lower lobe.? Abdomen: Soft and nontender.? Skin: Skin warm and dry.? Normal skin color.? Normal skin turgor.? Extremities: No lower extremity edema.? No calf ttp. 5/5 strength to bilateral upper and lower extremities Neuro: Oriented X 3.? No motor deficit.? No sensory deficit. CN 2-12 intact <RACHEAL Benjamin - Last Filed: 09/18/22 20:53> Course Course Course Narrative: RME - 62 yo male with history of anemia, HTN, HLD who presents to the ER for evaluation of shortness of breath, coughing, chest discomfort and not feeling well for the last 5 days. with similar symptoms. No relief with OTC meds. Coughing in triage with chest discomfort. Plan: CXR, viral swabs, basic labs and EKG <RACHEAL Eden - Last Filed: 09/18/22 16:34> Reevaluation(s) Reevaluation #1: CBC appears within normal limits. Chemistry appears to be around patient's baseline. Troponin negative, EKG nonischemic unlikely ACS. Patient's BNP within normal limits. History and physical exam not consistent with PE. Flu, COVID negative. Chest x-ray unremarkable. This is likely bacterial versus viral bronchitis. Will treat patient with antibiotics, prednisone, albuterol inhaler. Will him follow-up with PCP. Educated patient on diagnosis and treatment plan, answered all question, patient verbalizes understanding. At this time patient will be discharged home, advised to return with new or worsening symptoms. Educated on worrisome signs and symptoms and when to return. At this time I feel comfortable discharge home. <RACHEAL Benjamin - Last Filed: 09/18/22 20:53> Time: 20:52 <RACHEAL Benjamin Last Filed: 09/18/22 20:53> Medical Decision Making Medical Decision Making [facility] Narrative: 1948 62-year-old male presents with upper respiratory symptoms for the past 5 days, at home with similar symptoms. Reports chest pain and shortness of breath only with cough. Physical examination with diminished breath sounds bilaterally and faint crackles to right lower lobe. Concerns for bronchitis versus pneumonia. Other differentials include viral illness, allergies. Unlikely PE, pneumonia, ACS. Patient had labs, EKG and viral testing done at triage <RACHEAL Benjamin Last Filed: 09/18/22 20:53> Differential Diagnosis Differential Diagnoses: The differential diagnosis associated with the presentation includes <RACHEAL Benjamin Last Filed: 09/18/22 20:53> Concerns for bronchitis versus pneumonia. Other differentials include viral illness, allergies. Unlikely PE, pneumonia, ACS. <RACHEAL Benjmain Last Filed: 09/18/22 20:53> Admission/Observation Consideration of admission/observation: Escalation of care including admission/observation considered <RACHEAL Benjamin Last Filed: 09/18/22 20:53> Unlikely <RACHEAL Benjamin Last Filed: 09/18/22 20:53> Lab Data [facility] Lab Attestation statement: I reviewed the patient's lab results. <RACHEAL Benjamin Last Filed: 09/18/22 20:53> Result Diagrams: 09/18/22 17:19 09/18/22 17:19 <RACHEAL Eden - Last Filed: 09/18/22 16:34> Labs: Lab Results 09/18/22 09/18/22 09/18/22 Range/Units 17:19 17:19 17:19 WBC 9.2 (4.8-10.8) X10*3/uL RBC 5.04 (4.60-5.80) X10*6/uL Hgb 14.3 (14.0-18.0) g/dl Hct 43.0 (42.0-52.0) % MCV 85.3 (80.0-98.0) fL MCH 28.4 (27.0-33.0) pg MCHC 33.3 (31.0-36.0) g/dl RDW 12.5 (11.0-16.0) % Plt Count 331 (160-400) X10*3/uL MPV 9.5 (9.4-12.4) fL Immature Gran % (Auto) 3.2 H (0.0-0.4) % Neut % (Auto) 65.3 (45-73) % Lymph % (Auto) 15.5 L (20-40) % Cecil % (Auto) 10.1 (2-11) % Eos % (Auto) 5.1 H (0-4) % Baso % (Auto) 0.8 (0-2) % Lymph # (Auto) 1.4 (1.2-4.9) X10*3/uL Cecil # (Auto) 0.9 (0.1-1.2) X10*3/uL Eos # (Auto) 0.5 H (0.0-0.4) X10*3/uL Baso # (Auto) 0.1 (0.0-0.2) X10*3/uL Abs Immat Gran (auto) 0.30 H (0.00-0.03) X10*3/uL Absolute Neuts (auto) 6.0 (2.0-8.3) x10*3/uL Absolute Nucleated RBC 0.000 (0.0-0.012) X10*3/uL Nucleated RBC % (auto) 0.0 (0.0-0.2) /100WBC Sodium 142 (135-145) mmol/L Potassium 4.2 (3.3-5.1) mmol/L Chloride 104 (96-108) mmol/L Carbon Dioxide 25 (22-29) mmol/L Anion Gap 17 (12-20) BUN 18 H (9-16) mg/dL Creatinine 1.07 (0.5-1.4) mg/dL Estim Creat Clear Calc 80.8 Estimated GFR > 60 Random Glucose 137 H (60-115) mg/dL Calcium 9.3 (8.4-10.2) mg/dL Magnesium 2.1 (1.6-2.6) mg/dL Total Bilirubin 0.3 (0.0-1.0) mg/dL Direct Bilirubin < 0.2 (0.0-0.5) mg/dL AST 24 (5-37) U/L ALT 37 (0-40) U/L Alkaline Phosphatase 99 (39-117) U/L Troponin I High Sens (<3.5-35.0) ng/L B-Natriuretic Peptide < 10 (<100) pg/mL Total Protein 7.4 (6.5-8.0) g/dL Albumin 4.1 (3.5-5.0) g/dL COVID-19 ([place]) (Negative) COVID-19 Clin Com Influenza Type A (ARISTEO) (Negative) Influenza Type B (ARISTEO) (Negative) Influenza A & B Note 09/18/22 09/18/22 09/18/22 Range/Units 17:19 17:20 19:56 WBC (4.8-10.8) X10*3/uL RBC (4.60-5.80) X10*6/uL Hgb (14.0-18.0) g/dl Hct (42.0-52.0) % MCV (80.0-98.0) fL MCH (27.0-33.0) pg MCHC (31.0-36.0) g/dl RDW (11.0-16.0) % Plt Count (160-400) X10*3/uL MPV (9.4-12.4) fL Immature Gran % (Auto) (0.0-0.4) % Neut % (Auto) (45-73) % Lymph % (Auto) (20-40) % Cecil % (Auto) (2-11) % Eos % (Auto) (0-4) % Baso % (Auto) (0-2) % Lymph # (Auto) (1.2-4.9) X10*3/uL Cecil # (Auto) (0.1-1.2) X10*3/uL Eos # (Auto) (0.0-0.4) X10*3/uL Baso # (Auto) (0.0-0.2) X10*3/uL Abs Immat Gran (auto) (0.00-0.03) X10*3/uL Absolute Neuts (auto) (2.0-8.3) x10*3/uL Absolute Nucleated RBC (0.0-0.012) X10*3/uL Nucleated RBC % (auto) (0.0-0.2) /100WBC Sodium (135-145) mmol/L Potassium (3.3-5.1) mmol/L Chloride (96-108) mmol/L Carbon Dioxide (22-29) mmol/L Anion Gap (12-20) BUN (9-16) mg/dL Creatinine (0.5-1.4) mg/dL Estim Creat Clear Calc Estimated GFR Random Glucose (60-115) mg/dL Calcium (8.4-10.2) mg/dL Magnesium (1.6-2.6) mg/dL Total Bilirubin (0.0-1.0) mg/dL Direct Bilirubin (0.0-0.5) mg/dL AST (5-37) U/L ALT (0-40) U/L Alkaline Phosphatase (39-117) U/L Troponin I High Sens 2.9 (<3.5-35.0) ng/L B-Natriuretic Peptide (<100) pg/mL Total Protein (6.5-8.0) g/dL Albumin (3.5-5.0) g/dL COVID-19 ([place]) Negative (Negative) COVID-19 Clin Com See Note Influenza Type A (ARISTEO) Negative (Negative) Influenza Type B (ARISTEO) Negative (Negative) Influenza A & B Note See Note <RACHEAL Eden Last Filed: 09/18/22 16:34> Lab Results 09/18/22 09/18/22 09/18/22 Range/Units 17:19 17:19 17:19 WBC 9.2 (4.8-10.8) X10*3/uL RBC 5.04 (4.60-5.80) X10*6/uL Hgb 14.3 (14.0-18.0) g/dl Hct 43.0 (42.0-52.0) % MCV 85.3 (80.0-98.0) fL MCH 28.4 (27.0-33.0) pg MCHC 33.3 (31.0-36.0) g/dl RDW 12.5 (11.0-16.0) % Plt Count 331 (160-400) X10*3/uL MPV 9.5 (9.4-12.4) fL Immature Gran % (Auto) 3.2 H (0.0-0.4) % Neut % (Auto) 65.3 (45-73) % Lymph % (Auto) 15.5 L (20-40) % Cecil % (Auto) 10.1 (2-11) % Eos % (Auto) 5.1 H (0-4) % Baso % (Auto) 0.8 (0-2) % Lymph # (Auto) 1.4 (1.2-4.9) X10*3/uL Cecil # (Auto) 0.9 (0.1-1.2) X10*3/uL Eos # (Auto) 0.5 H (0.0-0.4) X10*3/uL Baso # (Auto) 0.1 (0.0-0.2) X10*3/uL Abs Immat Gran (auto) 0.30 H (0.00-0.03) X10*3/uL Absolute Neuts (auto) 6.0 (2.0-8.3) x10*3/uL Absolute Nucleated RBC 0.000 (0.0-0.012) X10*3/uL Nucleated RBC % (auto) 0.0 (0.0-0.2) /100WBC Sodium 142 (135-145) mmol/L Potassium 4.2 (3.3-5.1) mmol/L Chloride 104 (96-108) mmol/L Carbon Dioxide 25 (22-29) mmol/L Anion Gap 17 (12-20) BUN 18 H (9-16) mg/dL Creatinine 1.07 (0.5-1.4) mg/dL Estim Creat Clear Calc 80.8 Estimated GFR > 60 Random Glucose 137 H (60-115) mg/dL Calcium 9.3 (8.4-10.2) mg/dL Magnesium 2.1 (1.6-2.6) mg/dL Total Bilirubin 0.3 (0.0-1.0) mg/dL Direct Bilirubin < 0.2 (0.0-0.5) mg/dL AST 24 (5-37) U/L ALT 37 (0-40) U/L Alkaline Phosphatase 99 (39-117) U/L Troponin I High Sens (<3.5-35.0) ng/L B-Natriuretic Peptide < 10 (<100) pg/mL Total Protein 7.4 (6.5-8.0) g/dL Albumin 4.1 (3.5-5.0) g/dL COVID-19 ([place]) (Negative) COVID-19 Clin Com Influenza Type A (ARISTEO) (Negative) Influenza Type B (ARISTEO) (Negative) Influenza A & B Note 09/18/22 09/18/22 09/18/22 Range/Units 17:19 17:20 19:56 WBC (4.8-10.8) X10*3/uL RBC (4.60-5.80) X10*6/uL Hgb (14.0-18.0) g/dl Hct (42.0-52.0) % MCV (80.0-98.0) fL MCH (27.0-33.0) pg MCHC (31.0-36.0) g/dl RDW (11.0-16.0) % Plt Count (160-400) X10*3/uL MPV (9.4-12.4) fL Immature Gran % (Auto) (0.0-0.4) % Neut % (Auto) (45-73) % Lymph % (Auto) (20-40) % Cecil % (Auto) (2-11) % Eos % (Auto) (0-4) % Baso % (Auto) (0-2) % Lymph # (Auto) (1.2-4.9) X10*3/uL Cecil # (Auto) (0.1-1.2) X10*3/uL Eos # (Auto) (0.0-0.4) X10*3/uL Baso # (Auto) (0.0-0.2) X10*3/uL Abs Immat Gran (auto) (0.00-0.03) X10*3/uL Absolute Neuts (auto) (2.0-8.3) x10*3/uL Absolute Nucleated RBC (0.0-0.012) X10*3/uL Nucleated RBC % (auto) (0.0-0.2) /100WBC Sodium (135-145) mmol/L Potassium (3.3-5.1) mmol/L Chloride (96-108) mmol/L Carbon Dioxide (22-29) mmol/L Anion Gap (12-20) BUN (9-16) mg/dL Creatinine (0.5-1.4) mg/dL Estim Creat Clear Calc Estimated GFR Random Glucose (60-115) mg/dL Calcium (8.4-10.2) mg/dL Magnesium (1.6-2.6) mg/dL Total Bilirubin (0.0-1.0) mg/dL Direct Bilirubin (0.0-0.5) mg/dL AST (5-37) U/L ALT (0-40) U/L Alkaline Phosphatase (39-117) U/L Troponin I High Sens 2.9 (<3.5-35.0) ng/L B-Natriuretic Peptide (<100) pg/mL Total Protein (6.5-8.0) g/dL Albumin (3.5-5.0) g/dL COVID-19 ([place]) Negative (Negative) COVID-19 Clin Com See Note Influenza Type A (ARISTEO) Negative (Negative) Influenza Type B (ARISTEO) Negative (Negative) Influenza A & B Note See Note <RACHEAL Benjamin - Last Filed: 09/18/22 20:53> Independent Interpretation I performed an independent interpretation of an: EKG (Ventricular rate of 81, CA normal, QRS normal, QT/QTC normal. EKG with normal sinus rhythm minimal voltage criteria for LVH. No signs of ST elevations or inversions concerning for ischemia) and Plain X-Ray (Unremarkable) <RACHEAL Benjamin - Last Filed: 09/18/22 20:53> Radiology Impression Discussion of test interpretation with radiology: I have reviewed the radiologist's reading. <RACHEAL Benjamin - Last Filed: 09/18/22 20:53> External Record Review External record reviewed: Inpatient record, Office record, Outpatient record, Prior outpatient radiology, Primary care record and Outside ED record <RACHEAL Benjamin - Last Filed: 09/18/22 20:53> Core Measures AMI core measures followed: Yes <RACHEAL Benjamin - Last Filed: 09/18/22 20:53> Measure exclusions: not indicated <RACHEAL Benjamin - Last Filed: 09/18/22 20:53> Critical Care Time Critical Care Time Critical Care Time: No <RACHEAL Benjamin - Last Filed: 09/18/22 20:53> Discharge Plan Discharge Clinical Impression: Acute bronchitis <RACHEAL Eden - Last Filed: 09/18/22 16:34> Patient Disposition: Home, Self-Care <RACHEAL Eden - Last Filed: 09/18/22 16:34> Instructions: Acute Bronchitis (ED) <RACHEAL Eden - Last Filed: 09/18/22 16:34> Additional Instructions: Take your medications as prescribed. If you were prescribed antibiotics today, it is important that you take your medication to their entirety, do not skip any doses, do not finish them early. Follow-up with your primary care provider this week. Return to the emergency department with new or worsening symptoms. Such as fevers, chills, chest pain, shortness of breath, nausea, vomiting, dizziness, headache, vision changes, lethargy In case of emergency call 911 <RACHEAL Eden - Last Filed: 09/18/22 16:34> Prescriptions: New doxycycline hyclate 100 mg capsule 100 mg PO BID 10 Days Qty: 20 0RF prednisone 20 mg tablet 40 mg PO DAILY 5 Days Qty: 10 0RF albuterol sulfate 90 mcg/actuation aerosol powdr breath activated 2 inh inhalation Q4-6H PRN (Reason: shortness of breath or wheezing) Qty: 1 0RF No Action pantoprazole 20 mg tablet,delayed release (DR/EC) 20 mg PO BID 14 Days Qty: 28 0RF ciprofloxacin HCl 500 mg tablet 500 mg PO BID 3 Days Qty: 6 0RF aspirin 81 mg tablet,delayed release (DR/EC) 1 tab PO DAILY amlodipine 10 mg tablet 1 tab PO DAILY benazepril 10 mg tablet 1 tab PO DAILY metformin 1,000 mg tablet 1 tab PO BID Paxlovid (EUA) 300 mg (150 mg x 2)-100 mg tablets,dose pack See Rx Instructions PO .COMPLEX Qty: 15 0RF Rx Instructions: take TWO 150 mg tablets of nirmatrelvir with ONE 100 mg tablet of ritonavir twice daily for 5 days. Dip 15 pills codeine-guaifenesin [Guaifenesin AC] 10-100 mg/5 mL liquid 5 ml PO Q6H PRN (Reason: cold symptoms) Qty: 120 0RF albuterol sulfate 90 mcg/actuation HFA aerosol inhaler 1 inh inhalation QID PRN (Reason: shortness of breath or wheezing) Qty: 8.5 0RF rosuvastatin 5 mg tablet 5 mg PO DAILY tramadol 50 mg tablet 50 mg PO BID PRN Myrbetriq 50 mg tablet extended release 24 hr 50 mg PO DAILY 30 Days Qty: 30 0RF oxybutynin chloride 5 mg tablet extended release 24hr 5 mg PO DAILY 30 Days Qty: 30 1RF <RACHEAL Eden - Last Filed: 09/18/22 16:34> Referrals: Silvia Patton MD [Primary Care Provider] - 2 days <RACHEAL Eden - Last Filed: 09/18/22 16:34> Stand Alone Forms: Work/School Release <RACHEAL Eden - Last Filed: 09/18/22 16:34>
[2022-09-18 16:33] VITALS: BP 139/89; PULSE 87; RESP 16; TEMP 37; O2SAT 96; BMI 27.7
--- NOTE | 2022-09-18 16:33 | ECG_ITS ---
Test Reason : sob Blood Pressure : / mmHG Vent. Rate : 081 BPM Atrial Rate : 081 BPM P-R Int : 160 ms QRS Dur : 096 ms QT Int : 358 ms P-R-T Axes : 017 -17 013 degrees QTc Int : 415 ms Normal sinus rhythm Minimal voltage criteria for LVH, may be normal variant ( R in aVL ) Borderline ECG When compared with ECG of 17-DEC-2020 19:05, No significant change was found Referred By: Alta Pyle Electronically Signed By:Micheal Guillen
[2022-09-18 17:29] LABS: MANUAL DIFF FLAG NO
[2022-09-18 17:35] LABS: Basophils Absolute Auto 0.1 X10*3/uL (0.0-0.2); Basophils Percent Auto 0.8 % (0-2); Eosinophils Absolute Auto 0.5 X10*3/uL (0.0-0.4); Eosinophils Percent Auto 5.1 % (0-4); Hemoglobin 14.3 g/dl (14.0-18.0); Imm Gran Pct Auto 3.2 % (0.0-0.4); Lymphocytes Absolute Auto 1.4 X10*3/uL (1.2-4.9); Lymphocytes Percent Auto 15.5 % (20-40); Mean Corpuscular HGB Conc 33.3 g/dl (31.0-36.0); Mean Corpuscular Hemoglobin 28.4 pg (27.0-33.0); Mean Corpuscular Volume 85.3 fL (80.0-98.0); Mean Platelet Volume 9.5 fL (9.4-12.4); Monocytes Absolute Auto 0.9 X10*3/uL (0.1-1.2); Monocytes Percent Auto 10.1 % (2-11); Neutrophils Percent Auto 65.3 % (45-73); Platelet Count 331 X10*3/uL (160-400); Red Blood Count 5.04 X10*6/uL (4.60-5.80); Red Cell Distribution Width 12.5 % (11.0-16.0); White Blood Count 9.2 X10*3/uL (4.8-10.8)
[2022-09-18 17:45] LABS: Alanine Aminotransferase 37 U/L (0-40); Albumin Level 4.1 g/dL (3.5-5.0); Alkaline Phosphatase 99 U/L (39-117); Anion Gap 17 (12-20); Aspartate Amino Transferase 24 U/L (5-37); Bilirubin Direct < 0.2 mg/dL (0.0-0.5); Bilirubin Total 0.3 mg/dL (0.0-1.0); Blood Urea Nitrogen 18 mg/dL (9-16); Calcium 9.3 mg/dL (8.4-10.2); Carbon Dioxide 25 mmol/L (22-29); Chloride 104 mmol/L (96-108); Creatinine Clr Calc Pharmacy 80.8; Estimated Glomerular Filt Rate > 60; Glucose Random 137 mg/dL (60-115); Magnesium 2.1 mg/dL (1.6-2.6); Potassium 4.2 mmol/L (3.3-5.1); Sodium 142 mmol/L (135-145); Total Protein 7.4 g/dL (6.5-8.0)
[2022-09-18 17:50] LABS: B Type Natriuretic Peptide < 10 pg/mL (<100)
[2022-09-18 18:06] LABS: IDNOW Serial# 55D5AD1C; Influenza A Negative (Negative); Influenza B2 Negative (Negative)
[2022-09-18 18:06] LABS: COVID-19 Test Negative (Negative); IDNOW Serial# 08D9AD1C
[2022-09-18 20:23] LABS: Troponin-I High Sensitivity 2.9 ng/L (<3.5-35.0)
[2022-09-18 21:02] VITALS: BP 136/79; PULSE 82; RESP 16; TEMP 36.9; O2SAT 96
== END 2022-09-18 21:04 | disposition home or self-care (01) ==
PROVIDERS: Physician Assistant; Emergency Provider Emergency Medicine; PCP Pediatrics
DX: J20.9 Acute bronchitis, unspecified (principal); R06.02 Shortness of breath; R05.9 Cough, unspecified; F33.1 Major depressive disorder, recurrent, moderate; I10 Essential (primary) hypertension; Z20.822 Contact with and (suspected) exposure to COVID-19; Z20.828 Contact with and (suspected) exposure to other viral communicable diseases; Z79.899 Other long term (current) drug therapy
CPT/HCPCS: 36415; 71046; 80048; 80076; 83735; 83880; 84484; 85025; 87502; 87635; 93005; 99283; 99284

== ENCOUNTER → 2022-11-14 14:59 | Outpatient (BNVA) | payer MEDICARE, MEDICAID, SELFPAY | PROVIDERS: PCP Pediatrics; Visit Provider Urology | DX: N32.81 Overactive bladder (principal); R39.15 Urgency of urination | CPT/HCPCS: Q3014 ==

== ENCOUNTER 2022-12-09 09:48 | Outpatient (REF) | payer MEDICARE, MEDICAID, SELFPAY ==
--- NOTE | ~2022-12-09 | XR_ITS ---
EXAMINATION: XR CHEST 2 VIEWS CLINICAL INFORMATION: Positive TB test; asymptomatic. COMPARISON: Chest radiographs dated 09/18/2022. TECHNIQUE: Frontal and lateral views of the chest were obtained. FINDINGS: The heart, great vessels, pulmonary vasculature and mediastinum are normal. The lungs show no focal infiltrate, effusion or pneumothorax. No nodule, mass or lymphadenopathy is noted. There is no acute osseous abnormality. XR/XR chest 2V IMPRESSION: No active cardiopulmonary disease.
[2022-12-11 22:03] LABS: TS Negative Control Passed; TS Panel A 0; TS Panel B 0; TS Positive Control Passed; TSpotTB Negative (Negative)
== END 2022-12-09 09:49 | disposition home or self-care (01) ==
LOC: HO.XRAY 09:48
PROVIDERS: PCP Pediatrics; Visit Provider Pediatrics
DX: R76.12 Nonspecific reaction to cell mediated immunity measurement of gamma interferon antigen response without active tuberculosis (principal)
CPT/HCPCS: 36415; 71046; 86481

== ENCOUNTER 2023-04-16 13:01 | Outpatient (AMB) | payer MEDICARE, MEDICAID, SELFPAY ==
--- NOTE | 2023-04-16 13:28 | MHC.OFFVIS ---
Intake Intake Visit Reasons: 6mo follow up/ PVR Allergies amoxicillin Allergy (Severe, Verified 04/16/23 13:36) low plaquette HPI HPI Comments History of Present Illness Details Narayan is a pleasant Turkish-speaking male. He is a patient of . 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 Follow-up from addition of oxybutynin Prior treatment with Myrbetriq Persistent symptoms Minimal symptoms of obstruction Cystoscopy 09/04 trabeculations grade 3 with bladder instability PFSH Medical History Anemia Arthritis Depression Fatty liver High cholesterol Hypertension Surgical History History of total bilateral knee replacement History of umbilical hernia repair Hx of colonoscopy Hx of hernia repair Family History Maternal Uncle Throat cancer Mother Stroke Diabetes Paternal Uncle Stroke Maternal Grandfather Heart disease Maternal Aunt Diabetes Social History (Updated 03/06/23 @ 13:19 by Oxana Santo RN) Household Members: Spouse and Family Housing: House Do you presently have visiting nurse or other home services: Yes Alcohol intake: current Alcohol intake frequency: holidays/special occasions only Patient Tobacco Use Status: Never used Tobacco service: No Current occupational status: employed and retired Review of Systems Const All systems reviewed & are unremarkable except as noted in HPI and below Reports no additional complaints Resp Reports no additional complaints GI Reports no additional complaints Reports as per HPI Musc Reports no additional complaints Physical Exam Telemedicine evaluation Appropriate responses Regular breathing rate and rhythm HEENT Head: Yes normal to inspection Ears: hearing grossly normal bilaterally Eyes General: appearance normal, both eyes and all related structures Neck Neck: Yes normal visual inspection Chest Chest palpation & inspection: normal inspection of the chest Resp Effort & Inspection: normal respiratory effort and able to speak in complete sentences Assessment & Plan Assessment & Plan (1) Urinary urgency: Code(s): R39.15 - Urgency of urination (2) Overactive bladder: Code(s): N32.81 - Overactive bladder Plan Six month follow-up Medications: New oxybutynin chloride ER 15 mg PO DAILY 90 tabs 1RF 90 days N32.81 - Overactive bladder Patient Instructions: Imaging studies, laboratory and physical exam results were discussed and reviewed in detail. No major barriers to patient understanding were identified. An opportunity to ask questions regarding the treatment plan was provided. All questions were answered. The patient expressed understanding and agreement with the above treatment plan. The patient is aware they should contact our office by phone for worsening of their current condition or the appearance of new urologic symptoms. Compliance is encouraged with any medications and followup testing that is ordered. It is a privilege to participate in the urologic care of your patient. If you have any questions or concerns regarding treatment for the above conditions, or other urologic issues, please do not hesitate to contact me. The office telephone contact is [phone]. This note is constructed using voice recognition software. While every effort has been made to ensure accuracy media relations manager errors may have been included. Yours sincerely, Dr Frank Escudero MD, [facility] - Urology Providers of Expert, Compassionate Care for the Genitourinary System Telehealth Telehealth Location of provider rendering services: practice address Location of patient: address on file Patient Identification confirmed using: Name, : Yes Telehealth method: video Patient verbally consented to treatment: Yes Patient verbally consented to billing insurance company: Yes Patient informed of any privacy concerns related to visit: Yes Coding Level of Care Code Tele Est Pt Level 3 (90738) Diagnoses Urinary urgency R39.15 Overactive bladder N32.81
== END 2023-04-16 13:43 | disposition home or self-care (01) ==
LOC: HO.HUSH 13:01
PROVIDERS: PCP Pediatrics; Visit Provider Urology
DX: R39.15 Urgency of urination (principal); N32.81 Overactive bladder
CPT/HCPCS: 99213

== ENCOUNTER → 2023-04-16 13:01 | Outpatient (BNVA) | payer MEDICARE, MEDICAID, SELFPAY | PROVIDERS: PCP Pediatrics; Visit Provider Urology ==

== ENCOUNTER 2023-08-20 14:25 | Outpatient (REF) | payer MEDICARE, MEDICAID, SELFPAY ==
[2023-08-20 17:26] LABS: MANUAL DIFF FLAG NO
[2023-08-20 17:39] LABS: Basophils Percent Auto 0.6 % (0-2); Eosinophils Absolute Auto 0.2 X10*3/uL (0.0-0.4); Eosinophils Percent Auto 2.6 % (0-4); Hematocrit 42.2 % (42.0-52.0); Hemoglobin 14.2 g/dl (14.0-18.0); Imm Gran Abs Auto 0.06 X10*3/uL (0.00-0.03); Imm Gran Pct Auto 0.8 % (0.0-0.4); Lymphocytes Percent Auto 28.1 % (20-40); Mean Corpuscular HGB Conc 33.6 g/dl (31.0-36.0); Mean Corpuscular Hemoglobin 28.8 pg (27.0-33.0); Mean Corpuscular Volume 85.6 fL (80.0-98.0); Monocytes Absolute Auto 0.6 X10*3/uL (0.1-1.2); Monocytes Percent Auto 7.6 % (2-11); Neutrophils Absolute Auto 4.4 x10*3/uL (2.0-8.3); Neutrophils Percent Auto 60.3 % (45-73); Platelet Count 289 X10*3/uL (160-400); Red Blood Count 4.93 X10*6/uL (4.60-5.80); Red Cell Distribution Width 12.8 % (11.0-16.0); White Blood Count 7.3 X10*3/uL (4.8-10.8)
[2023-08-20 18:24] LABS: Alanine Aminotransferase 34 U/L (0-40); Albumin Level 4.1 g/dL (3.5-5.0); Alkaline Phosphatase 71 U/L (39-117); Anion Gap 13 (12-20); Aspartate Amino Transferase 21 U/L (5-37); Bilirubin Total 0.5 mg/dL (0.0-1.0); Blood Urea Nitrogen 16 mg/dL (9-16); Calcium 8.8 mg/dL (8.4-10.2); Carbon Dioxide 25 mmol/L (22-29); Chloride 105 mmol/L (96-108); Cholesterol 153 mg/dL (<200); Glucose Random 94 mg/dL (60-115); HDL Cholesterol 41 mg/dL (>40); LDL Cholesterol Calculated 89 mg/dL (<100); Potassium 3.5 mmol/L (3.3-5.1); Sodium 139 mmol/L (135-145); Total Protein 7.3 g/dL (6.5-8.0); Triglycerides 117 mg/dL (<150); Uric Acid 5.5 mg/dL (3.4-7.0)
[2023-08-20 18:53] LABS: Vitamin D 25-OH Total 30.1 ng/mL (>30)
[2023-08-20 19:29] LABS: Estimated Glomerular Filt Rate > 60
== END 2023-08-20 14:26 | disposition home or self-care (01) ==
LOC: HO.CHCLDS 14:25
PROVIDERS: Visit Provider Pediatrics
DX: M17.12 Unilateral primary osteoarthritis, left knee (principal); E11.9 Type 2 diabetes mellitus without complications
CPT/HCPCS: 36415; 80053; 80061; 82306; 82550; 84550; 85025

== ENCOUNTER 2023-10-16 13:52 | Outpatient (AMB) | payer MEDICARE, MEDICAID, SELFPAY ==
--- NOTE | 2023-10-16 13:59 | A.OFFVIS_ITS ---
Intake Visit Reasons: 6m/PVR Intake Note: Patient is Present for PVR/ Urology Med: Oxybutynin Antibiotic Allergy:Amoxicillin Blood Thinner:Aspirin Todays PVR:32 Allergies amoxicillin Allergy (Severe, Verified 10/16/23 14:00) low plaquette Medication List - Last Reconciled 10/16/23 by Frank Escudero MD amlodipine 1 tab PO DAILY aspirin 1 tab PO DAILY benazepril 1 tab PO DAILY metformin 1 tab PO BID oxybutynin chloride ER 15 mg PO DAILY 90 days rosuvastatin 5 mg PO DAILY tramadol 50 mg PO BID PRN HPI Comments Details: Narayan is a pleasant Tanzanian-speaking male. He is a patient of . 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 Follow-up from addition of oxybutynin Prior treatment with Myrbetriq Persistent symptoms Minimal symptoms of obstruction Cystoscopy 09/04 trabeculations grade 3 with bladder instability PFSH Medical History Anemia Arthritis Depression Fatty liver High cholesterol Hypertension Surgical History History of total bilateral knee replacement History of umbilical hernia repair Hx of colonoscopy Hx of hernia repair Family History Maternal Uncle Throat cancer Mother Stroke Diabetes Paternal Uncle Stroke Maternal Grandfather Heart disease Maternal Aunt Diabetes Social History (Updated 03/06/23 @ 13:19 by Oxana Santo RN) Household Members: Spouse and Family Housing: House Do you presently have visiting nurse or other home services: Yes Alcohol intake: current Alcohol intake frequency: holidays/special occasions only Patient Tobacco Use Status: Never used Tobacco service: No Current occupational status: employed and retired Review of Systems Const Denies chills and Denies fever(s) Card Reports no additional complaints and Denies syncope Resp Denies cough GI Denies abdominal pain and Denies heartburn Reports as per HPI and Denies change in libido Neuro Denies syncope Psych Denies change in libido Endo Denies change in libido Physical Exam Const General: cooperative, healthy appearing, comfortable and no acute distress Orientation/consciousness: patient oriented x3 HEENT Face and sinus: Yes normal facial exam Mouth: moist mucous membranes Neck Neck: Yes normal visual inspection, Yes full ROM and Yes trachea midline Chest Chest palpation & inspection: normal inspection of the chest Resp Effort & Inspection: normal respiratory effort, able to speak in complete sentences and no respiratory distress GI Inspection: Yes normal to inspection Back/Spine/Pelvis Cervical Spine: normal cervical lordosis Thoracic/Lumbar Spine: thoracic and lumbar spine normal to inspection Skin General skin exam: no rashes or lesions noted Neuro General: patient oriented x3, gait normal, tone normal and moves all extremities Extrem General: Yes normal to inspection and Yes capillary refill normal Office Procedures Post Void Residual Post Residual Void Post Void Residual (PVR): 32 [id number] Void Residual by ultrasound Assessment & Plan Assessment & Plan (1) Urinary urgency: Code(s): R39.15 - Urgency of urination Category: Medical (2) Overactive bladder: Code(s): N32.81 - Overactive bladder Category: Medical Plan Twelve month follow-up PSA and PVR Orders: Orders AMB Post Void Residual by ultrasound Today N32.81 - Overactive bladder Prostate Specific Antigen 364 Days N32.81 - Overactive bladder Patient Instructions: Imaging studies, laboratory and physical exam results were discussed and reviewed in detail. No major barriers to patient understanding were identified. An opportunity to ask questions regarding the treatment plan was provided. All questions were answered. The patient expressed understanding and agreement with the above treatment plan. The patient is aware they should contact our office by phone for worsening of their current condition or the appearance of new urologic symptoms. Compliance is encouraged with any medications and followup testing that is ordered. It is a privilege to participate in the urologic care of your patient. If you have any questions or concerns regarding treatment for the above conditions, or other urologic issues, please do not hesitate to contact me. The office telephone contact is [phone]. This note is constructed using voice recognition software. While every effort has been made to ensure accuracy bilingual school psychologist errors may have been included. Yours sincerely, Dr Frank Escudero MD, [facility] - Urology Providers of Expert, Compassionate Care for the Genitourinary System Coding Level of Care Code Est Pt Level 3 (08960) Diagnoses Urinary urgency R39.15 Overactive bladder N32.81 CPT Codes Post Residual Void - PVR CPT Code: 44510-Kgua Void Residual by ultrasound ([id number])
== END 2023-10-16 14:30 | disposition home or self-care (01) ==
PROVIDERS: PCP Pediatrics; Visit Provider Urology
DX: R39.15 Urgency of urination (principal); N32.81 Overactive bladder
CPT/HCPCS: 99213

== ENCOUNTER → 2023-10-16 13:52 | Outpatient (BNVA) | payer MEDICARE, MEDICAID, SELFPAY | PROVIDERS: PCP Pediatrics; Visit Provider Urology | DX: N32.81 Overactive bladder (principal); R39.15 Urgency of urination | CPT/HCPCS: 51798; 99212 ==

== ENCOUNTER 2024-10-11 12:23 | Outpatient (REF) | payer MEDICARE, MEDICAID, SELFPAY ==
--- OUTSIDE RECORDS SUMMARY | 2024-10-11 14:21 | XMS_ITS | Encounter Summary ---
Author Organization [employer] Address [address] [place] [address] Care Team Providers Care Anesthesia Technician Name Role Phone Silvia Patton MD Primary Care Provider [phone] Encounter Details Date Type Department Care Team (Late Contact Info) Description 11/18/2022 Abstract [facility] Information Management [address], [place] [phone] Silvia Patton MD [address], [place] [id number] Social History Tobacco Use Types Packs/Day Years Used Date Smoking Tobacco: Never Passive Smoke Exposure: Never Smokeless Tobacco: Never Depression Answer Date Recorded Patient Health Questionnaire-9 Score 2 07/04/2022 Depression Answer Date Recorded Patient Health Questionnaire-2 Score 0 07/04/2022 Sex and Gender Information Value Date Recorded Sex Assigned at Male 04/14/2022 10:16 AM EDT Legal Sex Male 10:16 AM EDT Gender Identity Male 04/14/2022 10:16 AM EDT Sexual Orientation Straight 04/14/2022 10 :16 AM EDT documented as of this encounter Plan of Treatment Upcoming Encounters Date Type Department Care Team (Late Contact Info) Description 10/12/2024 11:00 AM EDT Office Visit [facility] [address], [place] [phone] Silvia Patton MD [address], [place] [phone] documented as of this encounter Visit Diagnoses Not on filedocumented in this encounter Additional Health Concerns Assessment Noted Time PHQ-9 Depression Total Score: 2 07/04/19 23 9:12 AM EST documented as of this encounter Care Teams Anesthesia Technician Relationship Specialty Start Date End Date Silvia Patton MD [address] [place] [address] PCP - General Family Medicine 06/15/18 documented as of this encounter
--- OUTSIDE RECORDS SUMMARY | 2024-10-11 14:21 | XMS_ITS | Clinical Summary ---
Author Organization [employer] Address [address] [facility] 7[address] [place] [address] Care Team Providers Care Communications Station Manager Name Role Phone Silvia Patton MD Primary Care Provider [phone] Allergies Active Allergy Reactions Criticality Noted Date Comments Amoxicillin Unknown High 12/18/2022 Simvastatin 12/24/2011 Other reaction(s): myositis Medications albuterol 108 (90 Base) MCG/ACT inhaler TAKE 1 PUFF BY MOUTH 4 TIMES A DAY NEEDED FOR SHORTNESS OF BREATH OR WHEEZING 022 Active omega-3 (Fish Oil) 1000 MG capsule take 1 capsule orally bid 022 Active Myrbetriq 50 MG 24 hr tabletIndications:BPH associated with nocturia Take 1 tab orally daily 30 tablet 11 023 Active Blood Glucose Monitoring Suppl (FreeStyle [place] Lite) w/Device kitIndications:Diabete s Mellitus USE TO TEST BLOOD SUGAR TWICE A DAY 1 kit 023 Active Blood Glucose Monitoring Suppl (FreeStyle Lite) w/Device kit 1 Units 2 times daily. 1 kit 023 Active amoxicillin (Amoxil) 500 MG capsule Please take 4 CAPs of 500 MG one hour before the next dental appointment . 8 capsule 023 Active ammonium lactate (Amlactin) 12 % creamIndications:BPH associated with nocturia APPLY TO HANDS TWICE A DAY NEEDED 385 g 5 023 Active oxybutynin XL (Ditropan-XL) 15 MG 24 hr tablet Take 15 mg by mouth in the morning. 023 Active betamethasone dipropionate (Diprosone) 0.05 % ointment Apply topically 2 times daily. 45 g 2 Active traMADol (Ultram) 50 MG tabletIndications:BPH associated with nocturia Take 1 tablet (50 mg) by mouth if needed in the morning and at bedtime for moderate pain. 30 tablet Active terbinafine (LamISIL) 250 MG tablet Take 1 tab orally daily for 3 months 90 tablet Active Dulaglutide 1.5 MG/0.5ML solution auto-injectorIndicatio ns:Diabetes mellitus without complication (CMS/HCC) Inject 0.5 mL (1.5 mg) under the skin 1 (one) time per week. 2 mL 11 Active glucose blood (FREESTYLE LITE) test stripIndications:Diabe robert mellitus without complication (CMS/HCC) USE TO TEST BLOOD SUGAR ONCE A DAY 100 strip Active metFORMIN (Glucophage) 1000 MG tablet TAKE 1 TABLET BY MOUTH TWICE A DAY 180 tablet Active benazepril (Lotensin) 10 MG tabletIndications:Mitchel gn essential hypertension TAKE 1 TABLET BY MOUTH EVERY DAY 90 tablet 3 025 Active Aspirin Low Dose 81 MG EC tabletIndications:Mitchel gn essential hypertension TAKE 1 TABLET BY MOUTH EVERY DAY 90 tablet 3 025 Active amLODIPine (Norvasc) 10 MG tabletIndications:Mitchel gn essential hypertension TAKE 1 TABLET BY MOUTH EVERY DAY 90 tablet 1 025 Active rosuvastatin (Crestor) 5 MG tabletIndications:Pure hypercholesterolemia Take 1 tablet (5 mg) by mouth Once per day. 90 tablet 1 025 Active rosuvastatin (Crestor) 5 MG tabletIndications:Pure hypercholesterolemia TAKE 1 TABLET BY MOUTH EVERY DAY 90 tablet 1 024 2024 Discontinued( Reorder (will not trigger notification to Pharmacy)) amLODIPine (Norvasc) 10 MG tablet TAKE 1 TABLET BY MOUTH EVERY DAY 90 tablet 1 024 2024 Discontinued( Reorder (will not trigger notification to Pharmacy)) Active Problems Problem Noted Date Diagnosed Date Tinea pedis of both feet 03/22/2024 Xerosis of skin 04/23/2023 History of total bilateral knee replacement 03/15 Neuritis or radiculitis due to rupture of lumbar intervertebral disc 01/18/2019 Primary localized osteoarthrosis of left lower l eg 09/02/2018 Diabetes mellitus without complication 7 Steatosis of liver 09/10/2016 Onychomycosis of toenail 01/11/2014 Elevated fasting blood sugar 03/29/2013 Primary osteoarthritis of left knee 10/05/2012 Anxiety state 09/09/2011 Arthropathy 09/09/2011 Benign essential hypertension 09/09/2011 Depressive disorder 09/09/2011 Impotence of organic origin 09/09/2011 Pure hypercholesterolemia 09/09/2011 Encounters Date Type Department Care Team Description 10/07/2024 Refill [facility] MED & PEDS [address] [place] [address] Silvia Patton MD Pure hypercholesterolemi a; Benign essential hypertension 09/30/2024 Patient Outreach [facility] MEDICINE [address] [place], [place] [phone] Silvia Patton MD Pre-visit Planning (Pre visit planning LVM ) 08/26/2024 Population Health Risk Score [facility] () Department [address] [place] [id number] Provider, Population Health Generic from Last 3 Months Immunizations Name Administration Dates Next Due Influenza injectable quadriv alent IIV4 with preservative 06/24/2019,05/13/2018,03/13/2017,2015 Influenza injectable quadriv alent preservative free 04/23/2023,03/27/2022,03/28/2021,2019,07/17/2015 Influenza, IIV3, injectable 04/07/2014 Influenza, Split (incl. von fied surface antigen) 03/09/2013,05/21/2012 Influenza, seasonal, injecta ble, preservative free 03/22/2024 Tdap 01/11/2014 Social History Tobacco Use Types Packs/Day Years Used Date Smoking Tobacco: Never Passive Smoke Exposure: Never Smokeless Tobacco: Never Tobacco Cessation:Counseling Given: Not Answered Alcohol Use Standard Drinks/Week Comments Never 0 (1 standard drink = 0.6 oz pur e alcohol) Depression Answer Date Recorded Patient Health Questionnaire-9 Score 11 10/15/2023 Patient Health Questionnaire-9 Score 11 10/15/2023 Last PHQ-9: Questionnaire Data Not on file 0 10/15/2023 Housing Stability Answer Date Recorded What is your housing situation today? I have jonna hooper 05/24/[address] you li ve. Do you have problems with any of the following? None of the above 05/24/2024 Food Insecurity Answer Date Recorded Within the past 12 months, y ou worried that your food would run out before you got money to buy more: Never True 05/24/2024 Within the past 12 months,th e food you bought just didn't last and you didn't have enough money to get more: Never True 03/2024 Transportation Answer Date Recorded In the past 12 months, has l ack of transportation kept you from medical appts, meetings, work or from getting things needed for daily living? No 05/24/2024 Utilities Answer Date Recorded In the past 12 months, has t he electric, gas, oil or water company threatened to shut off services in your home? No 05/24/2024 Depression Answer Date Recorded Patient Health Questionnaire-2 Score 4 10/15/2023 Internet Access Answer Date Recorded Internet Access Q1 Yes 05/24/2024 Internet Access Q2 Not on file 05/24/2024 Sex and Gender Information Value Date Recorded Sex Assigned at Male 04/14/2022 10:16 AM EDT Legal Sex Male 10:16 AM EDT Gender Identity Male 04/14/2022 10:16 AM EDT Sexual Orientation Straight 04/14/2022 10 :16 AM EDT Last Filed Vital Signs Vital Sign Reading Time Taken Comments Blood Pressure 129/87 05/24/2024 12:02 PM EST Pulse 76 05/24/2024 12:02 PM EST Temperature 36.3 ??C (97.4 ??F) 05/24/2024 12:[address] Respiratory Rate 20 05/24/2024 12:02 PM EST Oxygen Saturation 97% 05/24/2024 12:02 PM EST Inhaled Oxygen Concentration - - Weight 95.3 kg (210 lb) 05/24/2024 12:02 PM EST Height 185.4 cm (6' 1 ) 05/24/2024 12:02 PM EST Body Mass Index 27.71 05/24/2024 12:02 PM EST Plan of Treatment Upcoming Encounters Date Type Department Care Team ([facility] st Contact Info) Description 10/12/2024 11:00 AM EDT Office Visit [facility] MED & PEDS [address] [place] [address] Silvia Patton MD [address] [place] [address] Health Maintenance Due Date Last Done Comments CT Colonography 1960 Colonoscopy 1960 Colorectal Cancer Screening 1960 FIT DNA/Cologuard 1960 FIT 1960 FOBT 1960 HIV Screening 1960 Sigmoidoscopy 1960 Eye Exam 1970 Hepatitis C Screening 1978 Hepatitis A Vaccines (1 of 2 - Risk 2-dose series) 1979 Pneumococcal Vaccine: 50+ Years (1 of 2 - PCV) 1979 Zoster Vaccines (1 of 2) 2010 Hepatitis B Vaccines (1 of 3 - Risk 3-dose series) 2020 RSV Patients and Patients Aged 60 years or older (1 - Risk 60-74 years 1-dose series) 2020 Diabetes: Urine Protein Screening 07/24/2022 07/24/2021, 10/05/2020, 05/23/2020 DTaP/Tdap/Td Vaccines (2 - Td or Tdap) 01/12/2024 01/11/2014 COVID-19 Vaccine ( season) 2024 07/24/2021, 11/05/2020, 10/08/2020 Dental Oral Exam 06/25/2024 12/23/2023, , 11/23/2018, Additional history exists Dental Prophylaxis 06/25/2024 12/23/2023, 0 12/18/2022, 03/11/2022, Additional history exists Lipid Panel 08/19/2024 08/20/2023, 11/13, 05/30/2022, Additional history exists Diabetes: Hemoglobin A1C 08/22/20242 024, 02/23/2024, 08/20/2023, Additional history exists Depression Screening 10/14/2024 10/15/2023, 10/15/19 Diabetes: Foot Exam 10/14/2024 10/15/2023, 10/15/2023, 10/15/2023, Additional history exists Dental X-Ray: Bitewings 12/23/2024 12/23/19 24, 03/11/2022, 04/02/2020, Additional history exists Alcohol/Substance Use Screening 05/24/2025 05/24/2024 SDOH Screening 05/24/2025 05/24/2024 Tobacco Screening 06/10/2025 06/10/2024 Dental X-Ray: Full Mouth 12/23/2026 024, 03/06/2016, 07/13/2008 Influenza Vaccine Completed 03/22/2024, , 03/27/2022, Additional history exists HIB Vaccines Aged Out No longer eligi ble based on patient's age to complete this topic HPV Vaccines Aged Out No longer eligi ble based on patient's age to complete this topic IPV Vaccines Aged Out No longer eligi ble based on patient's age to complete this topic Meningococcal Vaccine Aged Out No milad marc eligible based on patient's age to complete this topic RSV under 20 months Aged Out No longe r eligible based on patient's age to complete this topic Rotavirus Vaccines Aged Out No longer eligible based on patient's age to complete this topic Procedures Procedure Name Priority Date/Time Associated Diagnosis Comments PSA, TOTAL Routine 10/11/2024 12:53 PM EDT Diabetes mellitus without complication (CMS/HCC) POCT GLYCATED HEMOGLOBIN, TOTAL Routine 05/24/2024 12:10 PM EST Diabetes mellitus without complication (CMS/HCC) PROPHYLAXIS - ADULT Routine 12/23/2023 3 :00 PM EDT INTRAORAL - COMPLETE SERIES OF RADIOGRAPHIC IMAGES Routine 12/23/2023 3:00 PM EDT PERIODIC ORAL EVALUATION - ESTABLISHED PATIENT Routine 12/23/2023 3:00 PM EDT LIPID PANEL, STANDARD Routine 08/20/2023 2:28 PM EST Primary osteoarthritis of left knee Diabetes mellitus without complication (CMS/HCC) ALBUMIN, RANDOM URINE W/CREATININE Routine 07/24/2021 11:15 AM EST from Last 3 Months or Most Recently Relevant to Health Maintenance Results * PSA,Total (10/11/2024 12:53 PM EDT) Prostate Specific Antigen 1.40 <0.05 - 4.0 ng/mL [facility] Comment:PSA methodology: Abb anthony Alinity i ChemiluminescentMicroparticle Immunoassay (CMIA) 10/11/2024 12:5 3 PM EDT 10/11/2024 12:53 PM EDT us Generic External Data Provider LAB BLOOD ORDERAB LES Final Result [facility] [address] [place] [phone] * (ABNORMAL) POCT HGB A1C (05/24/2024 12:10 PM EST) Hemoglobin A1C 7.0(A) 4.0 - 6.0 % QC Media Lot # [id number] Lot# Expiration Date Blood 05/24/2024 12:1 0 PM EST us Silvia Patton MD POINT OF CARE TEST ENTER/EDIT ORDERABLES Final Result * Lipid Panel, Standard (08/20/2023 2:28 PM EST) Triglycerides 117 <150 mg/dL [facility] Comment:Desirable Triglyceri de: less than 150 mg/dLBorderline High Triglyceride 150-199 mg/dLHigh Triglyceride: 200-499 mg/dLVery High Triglyceride: greater than or equal to 5OO mg/dL Cholesterol 153 <200 mg/dL [facility] Comment:Desirable Cholestero l: less than 200 mg/dLBorderline High Cholesterol: 200-239 mg/dLHigh Cholesterol: greater than 239 mg/dL LDL Cholesterol Calculated 89 <100 mg/dL [facility] Comment:Desirable LDL: less than 100 mg/dLNear Optimal/Above Optimal LDL: 110- 129 mg/dLBorderline High LDL: 130-159 mg/dLHigh LDL: 160-189 mg/dLVery High LDL: greater than or equal to 190 mg/dL HDL Cholesterol 41 >40 mg/dL [facility] Comment:Desirable HDL: great er than 40 mg/dL Note: This HDL assay may give artificially low results in patients with liver disease. Blood Venous blood specimen / Unknown 08/20/2023 2:28 PM EST 08/20/2023 5:22 PM EST us Silvia Patton MD LAB BLOOD ORDERABLES Final Re sult Performing Organization Address [facility] Co de Phone Number [facility] [address] [place] [address] [phone] * ALBUMIN, RANDOM URINE W/CREATININE (07/24/2021 11:15 AM EST) Microalbumin Urine 2.4 See Note: mg/dL [facility] Comment: Reference Range: ?? Reference Range Not established Microalb/Creat Ratio 11 <30 mcg/mg creat [facility] Comment: ?? The ADA defines abnormalities in albumin excretion as follows: ?? Albuminuria Category ?Result (mcg/mg creatinine) ?? Normal to Mildly increased ?? <30 Moderately increased ? 30-299 ?? Severely increased ? > OR = 300 ?? The ADA recommends that at least two of three specimens collected within a 3-6 month period be abnormal before considering a patient to be within a diagnostic category. Creatinine, Urine 215 20 - 320 mg/dL [facility] 07/24/2021 11:1 5 AM EST us Silvia Patton MD LAB URINE ORDERABLES Final Re sult Performing Organization Address City/[facility]/ZIP Co de Phone Number [facility] [address] [place] [address], from Last 3 Months or Most Recently Relevant to Health Maintenance Insurance [facility] STANDARD [place]IC[place] [id number] DENTAL-[facility] MEDICAID STAND ADULT # 1 [place] [id number] Care Teams Communications Station Manager Relationship Specialty Start Date End Date Silvia Patton MD [address] [place] [address] [place] [phone] PCP - General Family Medicine 06/15/18
--- OUTSIDE RECORDS SUMMARY | 2024-10-11 14:21 | XMS_ITS | Encounter Summary ---
Author Organization [employer] Address [address] [facility] 7t [place] [address] Care Team Providers Care Research Professor Of Biostatistics Name Role Phone Silvia Patton MD Primary Care Provider [phone] Reason for Visit * Reason Onset Date Comments Nurse Triage 12/29/2023 Encounter Details Date Type Department Care Team ([facility] Contact Info) Description 12/29/2023 Telephone [facility] MEDICINE [address] [place], [place] [phone] Silvia Patton MD [address] [facility] [place] [address] Nurse Triage Social History Tobacco Use Types Packs/Day Years Used Date Smoking Tobacco: Never Passive Smoke Exposure: Never Smokeless Tobacco: Never Alcohol Use Standard Drinks/Week Comments Never 0 (1 standard drink = 0.6 oz pur e alcohol) Depression Answer Date Recorded Patient Health Questionnaire-9 Score 11 10/15/2023 Patient Health Questionnaire-9 Score 11 10/15/2023 Last PHQ-9: Questionnaire Data Not on file 0 10/15/2023 Housing Stability Answer Date Recorded What is your housing situation today? I have jonna hooper 03/30/[address] you li ve. Do you have problems with any of the following? None of the above 03/30/2023 Food Insecurity Answer Date Recorded Within the past 12 months, y ou worried that your food would run out before you got money to buy more: Never True 03/30/2023 Within the past 12 months,th e food you bought just didn't last and you didn't have enough money to get more: Never True Transportation Answer Date Recorded In the past 12 months, has l ack of transportation kept you from medical appts, meetings, work or from getting things needed for daily living? No 03/30/2023 Utilities Answer Date Recorded In the past 12 months, has t he electric, gas, oil or water company threatened to shut off services in your home? No 03/30/2023 Depression Answer Date Recorded Patient Health Questionnaire-2 Score 4 10/15/2023 Sex and Gender Information Value Date Recorded Sex Assigned at Male 04/14/2022 10:16 AM EDT Legal Sex Male 10:16 AM EDT Gender Identity Male 04/14/2022 10:16 AM EDT Sexual Orientation Straight 04/14/2022 10 :16 AM EDT documented as of this encounter Miscellaneous Notes * Telephone Encounter - Mayra Zamora RN - 12/29/2023 12:24 PM EDT Images from the original note were not included. Following message received Silvia Patton MD You1 minute ago (12:19 PM) VB I can send ozempic to either [facility] pharmacy, but in the future please advise pt when they call tocall our pharmacy as usually we have in stock. Thank you Pt called and advised. Per pt agreeable to have Rx sent to [facility] pharmacy but believes it is an insurance issue. Upon review of chart notes do see that a PA was submitted on 10/22/23 per documentation but do not see update on status. Will send to PCP and PA specialist to follow up on PA status. * Telephone Encounter - Mayra Zamora RN - 12/29/2023 8:55 AM EDT Call returned to Narayan Valdes to triage below. Reports has only been taking metformin. Has been without Ozempic since October. Per pt fasting BS today was 204mg/dL. Per pt is having increased urinary frequency. No BRUNO, confusion. Per pt has not been above 300s. Per pt also has bilateral lower leg rash x 1 week. Has been applying topical triamcinolone with very mild relief. Not blister like or painful. Very itchy. Pt offered SDC appt slot with Dr. Fay tomorrow. Pt declines x 3 as only wants appts with PCP. Pt advised nothing with PCP this week. Will send note to provider to review regardingalt tx for DM since pt unable to obtain Ozempic. Pt adivsed of [facility] hours for rash or to call daily for schedule review to see if any cancellations with PCP. Reviewed home care advise, ER precautions and reasons to call back. Multiple (2) protocols were used on this call. Disposition for Call: Discuss with PCP and Callback by Nurse Today Protocol Used: Rash or Redness - Localized (Adult) Protocol-Based Disposition: See in Office or Video Visit Today or Tomorrow Override (Final) Disposition: Discuss with PCP and Callback by Nurse Today Override Reason: Caller refused suggested disposition Video visit offer not recorded Positive Triage Question: * Severe local itching persists after 2 days of steroid cream * All higher-acuity triage questions were negative Care Advice Discussed: * Avoid the Cause * Wash the Area * Cold Pack for Mild Itching or Mild Pain * Don't Scratch * Reasons To Call Back - You become worse Protocol Used: Diabetes - High Blood Sugar (Adult) Protocol-Based Disposition: Home Care Positive Triage Question: * Blood glucose 70 - 240 mg/dL (3.9 -13.3 mmol/L) * All higher-acuity triage questions were negative Care Advice Discussed: * High Blood Sugar (Hyperglycemia) * Treatment - Liquids * Diabetes Pills * Measure and Record Your Blood Glucose * Daily Blood Glucose Goals * Reasons To Call Back - Blood glucose over 300 mg/dL (16.7 mmol/L), two or more times in a row. - Urine ketones become moderate or large (or more than 1+); if you check blood ketones, blood ketone test is over 1.4 mmol/L - Vomiting lasting over 4 hours or unable to drink any fluids - Rapid breathing occurs - You become worse * Telephone Encounter - Neil Brown - 12/29/2023 8:22 AM EDT Symptom: High Blood Sugar - Caller Reports Outcome: Schedule an urgent appointment (within 1 hour) or talk to a nurse or provider soon Reason: Getting worse The caller accepted this outcome Please contact pt @ [phone] Hiral documented in this encounter Plan of Treatment Upcoming Encounters Date Type Department Care Team ([facility] st Contact Info) Description 10/12/2024 11:00 AM EDT Office Visit [facility] MED & PEDS [address] [place] [address] Silvia Patton MD [address] [place] [address] documented as of this encounter Visit Diagnoses Not on filedocumented in this encounter Additional Health Concerns Assessment Noted Time PHQ-9 Depression Total Score: 11 024 1:24 PM EDT documented as of this encounter Care Teams Research Professor Of Biostatistics Relationship Specialty Start Date End Date Silvia Patton MD [address] [place] [address] PCP - General Family Medicine 06/15/18 documented as of this encounter
--- OUTSIDE RECORDS SUMMARY | 2024-10-11 14:21 | XMS_ITS | Encounter Summary ---
Author Organization [employer] Address [address] [facility] 7[address] [place] [address] Care Team Providers Care Director Of Front Office Name Role Phone Silvia Patton MD Primary Care Provider [phone] Encounter Details Date Type Department Care Team (Latest Contact Info) Description 11/10/2018 Abstract [facility] CONVERSIONS Dental, Provider, DDS Social History Tobacco Use Types Packs/Day Years Used Date Smoking Tobacco: Never Assessed Sex and Gender Information Value Date Recorded Sex Assigned at Male 04/14/2022 10:16 AM EDT Legal Sex Male 10:16 AM EDT Gender Identity Male 04/14/2022 10:16 AM EDT Sexual Orientation Straight 04/14/2022 10 :16 AM EDT documented as of this encounter Plan of Treatment Upcoming Encounters Date Type Department Care Team ([facility] st Contact Info) Description 10/12/2024 11:00 AM EDT Office Visit [facility] CHC MED & PEDS [address] [place] [address] Silvia Patton MD [address] [place] [address] documented as of this encounter Visit Diagnoses Not on filedocumented in this encounter Care Teams Director Of Front Office Relationship Specialty Start Date End Date Silvia Patton MD [address] [place] [address] PCP - General Family Medicine 06/15/18 documented as of this encounter
--- OUTSIDE RECORDS SUMMARY | 2024-10-11 14:21 | XMS_ITS | Encounter Summary ---
Author Organization [employer] Address [address] [facility] 7t [place] [address] Care Team Providers Care Director Supplier Quality Name Role Phone Silvia Patton MD Primary Care Provider [phone] Reason for Visit * Reason Comments Med Change Request Encounter Details Date Type Department Care Team ([facility] Contact Info) Description 01/01/2023 Refill [facility] MED & PEDS [address] [place], [place] [phone] Silvia Patton MD [address] [place] [address] Social History Tobacco Use Types Packs/Day Years [...] Orientation Straight 04/14/2022 10 :16 AM EDT COVID-19 Exposure Response Date Recorded In the last 10 days, have yo u been in contact with someone who was confirmed or suspected to have Coronavirus/COVID-19? No / Unsure 12/18/2022 1:51 PM EDT documented as of this encounter Plan of Treatment Upcoming Encounters Date Type Department Care Team ([facility] Contact Info) Description 10/12/2024 11:00 AM EDT Office Visit [facility] MED & PEDS [address] [place] [address] Silvia Patton MD [address] [place] [address] documented as of this encounter Visit Diagnoses Not on filedocumented in this encounter Additional Health Concerns Assessment Noted Time PHQ-9 Depression Total Score: 2 07/04/19 23 9:12 AM EST documented as of this encounter Care Teams Director Supplier Quality Relationship Specialty Start Date End Date Silvia Patton MD [address] [place] [address] PCP - General Family Medicine 06/15/18 documented as of this encounter
--- OUTSIDE RECORDS SUMMARY | 2024-10-11 14:21 | XMS_ITS | Encounter Summary ---
Author Organization [employer] Address [address] [place] [address] Care Team Providers Care Human Resources Office Assistant Name Role Phone Silvia Patton MD Primary Care Provider [phone] Reason for Visit * Reason Onset Date Comments case back from lab?? 04/19/2024 Encounter Details Date Type Department Care Team ([facility] Contact Info) Description 04/19/[address] [facility] CHC ADULT DENTAL [address] [place] [address] Rajwinder Alfredo, WINSOME [address] [place] [address] case back from lab?? Social History Tobacco Use Types Packs/Day Years [...] encounter Miscellaneous Notes * Telephone Encounter - Siena Fishman - 04/19/2024 3:48 PM EST Patient called in to check in if case is back from lab. Would like to be scheduled. Please reach out to patient DR documented in this encounter Plan of Treatment Upcoming Encounters Date Type Department Care Team (Late st Contact Info) Description 10/12/2024 11:00 AM EDT Office Visit [facility] MED & PEDS [address] [place] [address] Silvia Patton MD [address] [place] [address] documented as of this encounter Visit Diagnoses Not on filedocumented in this encounter Additional Health Concerns Assessment Noted Time PHQ-9 Depression Total Score: 11 024 1:24 PM EDT documented as of this encounter Care Teams Human Resources Office Assistant Relationship Specialty Start Date End Date Silvia Patton MD [address] [place] [address] PCP - General Family Medicine 06/15/18 documented as of this encounter
--- OUTSIDE RECORDS SUMMARY | 2024-10-11 14:21 | XMS_ITS | Encounter Summary ---
Author Organization [employer] Address [address] [facility] 7t [place] [address] Care Team Providers Care Branch Controller Name Role Phone Silvia Patton MD Primary Care Provider [phone] Reason for Visit * Reason Comments Med Refill Encounter Details Date Type Department Care Team ([facility] Contact Info) Description 10/07/2024 Refill [facility] CHC MED & PEDS [address] [place], [place] [phone] Silvia Patton MD [address] [place], [place] [phone] Pure hypercholesterolemia; Benign essential hypertension Social History Tobacco Use Types Packs/Day Years [...] Upcoming Encounters Date Type Department Care Team ([facility] st Contact Info) Description 10/12/2024 11:00 AM EDT Office Visit [facility] CHC MED & PEDS [address] [place] [address] Silvia Patton MD [address] [place] [address] documented as of this encounter Visit Diagnoses Diagnosis Pure hypercholesterolemia Benign essential hypertension Essential hypertension, benign documented in this encounter Additional Health Concerns Assessment Noted Time PHQ-9 Depression Total Score: 11 024 1:24 PM EDT documented as of this encounter Care Teams Branch Controller Relationship Specialty Start Date End Date Silvia Patton MD [address] [place] [address] PCP - General Family Medicine 06/15/18 documented as of this encounter
--- OUTSIDE RECORDS SUMMARY | 2024-10-11 14:21 | XMS_ITS | Encounter Summary ---
Author Organization [employer] Address [address] [facility] 7t [place] [address] Care Team Providers Care Material Engineer Name Role Phone Silvia Patton MD Primary Care Provider [phone] Encounter Details Date Type Department Care Team (Latest Contact Info) Description 03/11/2022 Abstract [facility] CONVERSIONS Dental, Provider, DDS Social History Tobacco [...] Upcoming Encounters Date Type Department Care Team ([facility] st Contact Info) Description 10/12/2024 11:00 AM EDT Office Visit [facility] CHC MED & PEDS [address] [place] [address] Silvia Patton MD [address] [place] [address] documented as of this encounter Visit Diagnoses Not on filedocumented in this encounter Care Teams Material Engineer Relationship Specialty Start Date End Date Silvia Patton MD [address] [place] [address] PCP - General Family Medicine 06/15/18 documented as of this encounter
--- OUTSIDE RECORDS SUMMARY | 2024-10-11 14:21 | XMS_ITS | Encounter Summary ---
Author Organization [employer] Address [address] [facility] 7t [place] [address] Care Team Providers Care Senior Linux Unix Engineer Name Role Phone Silvia Patton MD Primary Care Provider [phone] Encounter Details Date Type Department Care Team (Latest Contact Info) Description 07/06/2019 Abstract [facility] CONVERSIONS Dental, Provider, DDS Social History [...] Upcoming Encounters Date Type Department Care Team ([facility] st Contact Info) Description 10/12/2024 11:00 AM EDT Office Visit [facility] CHC MED & PEDS [address] [place] [address] Silvia Patton MD [address] [place] [address] documented as of this encounter Visit Diagnoses Not on filedocumented in this encounter Care Teams Senior Linux Unix Engineer Relationship Specialty Start Date End Date Silvia Patton MD [address] [place] [address] PCP - General Family Medicine 06/15/18 documented as of this encounter
--- OUTSIDE RECORDS SUMMARY | 2024-10-11 14:21 | XMS_ITS | Encounter Summary ---
Author Organization [employer] Address [address] 7[address] [place] [address] Care Team Providers Care Airport Guide Name Role Phone Silvia Patton MD Primary Care Provider [phone] Reason for Visit * Reason Onset Date Comments shade 03/31/2023 Encounter Details Date Type Department Care Team ([facility] Contact Info) Description 03/31/2023 Telephone [facility] ADULT DENTAL [address] [place], [place] [phone] Cheryl Rothman BDS shade Social History Tobacco Use Types Packs/Day Years Used Date Smoking Tobacco: Never Passive Smoke Exposure: Never Smokeless Tobacco: Never Alcohol Use Standard Drinks/Week Comments Never 0 (1 standard drink = 0.6 oz pur e alcohol) Depression Answer Date Recorded Patient Health Questionnaire-9 Score 2 07/04/2022 Housing Stability Answer Date Recorded What is [...] * Telephone Encounter - Siena Fishman - 04/03/2023 11:30 AM EDT Lab said they will wait then for patient to come in for shade and would like a call back with shadeso they can proceed * Telephone Encounter - Sinea Fishman - 04/02/2023 2:03 PM EDT Lab called back and stated that next visit is wax try in which is with the teeth and they do need the shade color. Unsure who you spoke to when you called. But Christiano from [employer] is the rep that called in. If you would like to clarify with him * Telephone Encounter - Siena Fishman - 03/31/2023 2:42 PM EDT Christiano from [employer] called that they do not have a shade on case. Pls reach out to lab documented in this encounter Plan of Treatment Upcoming Encounters Date Type Department Care Team (Late st Contact Info) Description 10/12/2024 11:00 AM EDT Office Visit [facility] CHC MED & PEDS [address] [place], [place] [phone] Silvia Patton MD [address] [place] [address] documented as of this encounter Visit Diagnoses Not on filedocumented in this encounter Additional Health Concerns Assessment Noted Time PHQ-9 Depression Total Score: 2 07/04/19 23 9:12 AM EST documented as of this encounter Care Teams Airport Guide Relationship Specialty Start Date End Date Silvia Patton MD [address] [place] [address] PCP - General Family Medicine 06/15/18 documented as of this encounter
== END 2024-10-11 12:24 | disposition home or self-care (01) ==
LOC: HO.LAB 12:23
PROVIDERS: PCP Pediatrics; Visit Provider Urology
DX: N32.81 Overactive bladder (principal); Z12.5 Encounter for screening for malignant neoplasm of prostate
CPT/HCPCS: 36415; 84153

== ENCOUNTER 2024-10-14 13:21 | Outpatient (AMB) | payer MEDICARE, MEDICAID, SELFPAY ==
--- NOTE | 2024-10-14 13:24 | MHC.OFFVIS ---
Intake Visit Reasons: 1y/PSA/PVR(psa?) Intake Note: Patient is present for 1Y/PSA/PVR Urology Medication:OXYBUTYNIN Antibiotic Allergy:AMOXICILLIN Blood Thinner:ASPIRIN TODAY'S PVR:22ML'S Social Work Manager Required: No Allergies amoxicillin Allergy (Severe, Verified 10/14/24 13:25) low plaquette HPI Comments Details: Narayan is a pleasant Slovenian-speaking male. He is a patient of . 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 Follow-up from addition of oxybutynin Prior treatment with Myrbetriq Persistent symptoms Minimal symptoms of obstruction Cystoscopy 09/04 trabeculations grade 3 with bladder instability PFSH Medical History Anemia Arthritis Depression Fatty liver High cholesterol Hypertension Surgical History History of total bilateral knee replacement History of umbilical hernia repair Hx of colonoscopy Hx of hernia repair Family History Maternal Uncle Throat cancer Mother Stroke Diabetes Paternal Uncle Stroke Maternal Grandfather Heart disease Maternal Aunt Diabetes Social History (Updated 03/06/23 @ 13:19 by Oxana Santo RN) Household Members: Spouse and Family Housing: House Do you presently have visiting nurse or other home services: Yes Alcohol intake: current Alcohol intake frequency: holidays/special occasions only Patient Tobacco Use Status: Never used Tobacco service: No Current occupational status: employed and retired Office Procedures Post Void Residual Post Residual Void Post Void Residual (PVR): 22 47870-[id number] Void Residual by ultrasound Results AMB Urinalysis, Automated UA Leukoctes 0 Kenisha/uL Last Edit by ANNIE Dunlap on 10/14/24 13:36 UA Nitrite Negative Last Edit by ANNIE Dunlap on 10/14/24 13:36 UA Urobilinogen 0.2 mg/dL Last Edit by ANNIE Dunlap on 10/14/24 13:36 UA Protein 15 mg/dL Last Edit by ANNIE Dunlap on 10/14/24 13:36 UA pH 6.0 Last Edit by ANNIE Dunlap on 10/14/24 13:36 UA Blood 0 Pako/uL Last Edit by ANNIE Dunlap on 10/14/24 13:36 UA Specific Centuria 1.020 Last Edit by ANNIE Dunlap on 10/14/24 13:36 UA Ketone Negative Last Edit by ANNIE Dunlap on 10/14/24 13:36 UA Bilirubin 0 mg/dL Last Edit by ANNIE Dunlap on 10/14/24 13:36 UA Glucose 0 mg/dL Last Edit by ANNIE Dunlap on 10/14/24 13:36 Results Reviewed Results Reviewed: Laboratory Last Values Urine pH (Auto) 6.0 10/14/24 13:35 Specific Centuria (Auto) 1.020 10/14/24 13:35 Urine Protein (Auto) 15 mg/dL 10/14/24 13:35 Glucose (UA)(Auto) 0 mg/dL 10/14/24 13:35 Urine Ketones (Auto) Negative 10/14/24 13:35 Urine Blood (Auto) 0 Pako/uL 10/14/24 13:35 Urine Nitrite (Auto) Negative 10/14/24 13:35 Urine Bilirubin (Auto) 0 mg/dL 10/14/24 13:35 Urine Urobilinogen (Auto) 0.2 mg/dL 10/14/24 13:35 Leukocyte Esterase (Auto) 0 Kenisha/uL 10/14/24 13:35 Assessment & Plan Assessment & Plan (1) Erectile dysfunction: Code(s): N52.9 - Male erectile dysfunction, unspecified Category: Medical Orders: Orders AMB Urinalysis Automated Today Z13.9 - Encounter for screening, unspecified Coding Diagnoses Erectile dysfunction N52.9 CPT Codes Post Residual Void - PVR CPT Code: 15214-[id number] Void Residual by ultrasound ([id number])
--- OUTSIDE RECORDS SUMMARY | 2024-10-14 13:39 | XMS_ITS | Encounter Summary ---
Author Organization [employer] Address [address] 7t [place] [address] Care Team Providers Care Structural Steel Trades Worker Name Role Phone Silvia Patton MD Primary Care Provider [phone] Encounter Details Date Type Department Care Team (Latest Contact Info) Description 10/12/2024 Travel Social History Tobacco Use Types Packs/Day Years [...] Care Team (Late st Contact Info) Description 01/19/2025 1:15 PM EDT Office Visit [facility] MED & PEDS [address] [place] [address] Silvia Patton MD [address] [place] [address] documented as of this encounter Visit Diagnoses Not on filedocumented in this encounter Additional Health Concerns Assessment Noted Time PHQ-9 Depression Total Score: 11 024 1:24 PM EDT documented as of this encounter Care Teams Structural Steel Trades Worker Relationship Specialty Start Date End Date Silvia Patton MD [address] [place] [address] PCP - General Family Medicine 06/15/18 documented as of this encounter
--- OUTSIDE RECORDS SUMMARY | 2024-10-14 13:39 | XMS_ITS | Encounter Summary ---
Author Organization [employer] Address [address] [place] [address] Care Team Providers Care Mold Stripper Name Role Phone Silvia Patton MD Primary Care Provider [phone] Reason for Visit * Reason Onset Date Comments shade 03/31/2023 Encounter Details Date Type Department Care Team ([facility] Contact Info) Description 03/31/2023 Telephone [facility] ADULT DENTAL [address] [place], [place] [phone] Cheryl Rothman BDS shade Social History Tobacco [...] they can proceed * Telephone Encounter - Siena Fishman - 04/02/2023 2:03 PM EDT Lab called back and stated that next visit is wax try in which is with the teeth and they do need the shade color. Unsure who you spoke to when you called. But Christiano from [employer] is the rep that called in. If you would like to clarify with him * Telephone Encounter - Siena Fishman - 03/31/2023 2:42 PM EDT Christiano from [employer] called that they do not have a shade on case. Pls reach out to lab documented in this encounter Plan of Treatment Upcoming Encounters Date Type Department Care Team (Late st Contact Info) Description 01/19/2025 1:15 PM EDT Office Visit [facility] CHC MED & PEDS [address] [place], [place] [phone] Silvia Patton MD [address] [place] [address] documented as of this encounter Visit Diagnoses Not on filedocumented in this encounter Additional Health Concerns Assessment Noted Time PHQ-9 Depression Total Score: 2 07/04/19 23 9:12 AM EST documented as of this encounter Care Teams Mold Stripper Relationship Specialty Start Date End Date Silvia Patton MD [address] [place] [address] PCP - General Family Medicine 06/15/18 documented as of this encounter
--- OUTSIDE RECORDS SUMMARY | 2024-10-14 13:39 | XMS_ITS | Encounter Summary ---
Author Organization [employer] Address [address] [facility] 7t [place] [address] Care Team Providers Care Astrophysics Professor Name Role Phone Silvia Patton MD Primary Care Provider [phone] Encounter Details Date Type Department Care Team (Latest Contact Info) Description 11/10/2018 Abstract [facility] CONVERSIONS Dental, Provider, DDS Social History Tobacco [...] Upcoming Encounters Date Type Department Care Team ([facility] st Contact Info) Description 01/19/2025 1:15 PM EDT Office Visit [facility] CHC MED & PEDS [address] [place] [address] Silvia Patton MD [address] [place] [address] documented as of this encounter Visit Diagnoses Not on filedocumented in this encounter Care Teams Astrophysics Professor Relationship Specialty Start Date End Date Silvia Patton MD [address] [place] [address] PCP - General Family Medicine 06/15/18 documented as of this encounter
--- OUTSIDE RECORDS SUMMARY | 2024-10-14 13:39 | XMS_ITS | Encounter Summary ---
Author Organization [employer] Address [address] [place] [address] Care Team Providers Care Staffing Rn Name Role Phone Silvia Patton MD Primary Care Provider [phone] Reason for Visit * Reason Onset Date Comments case back from lab?? 04/19/2024 Encounter Details Date Type Department Care Team ([facility] Contact Info) Description 04/19/[address] [facility] CHC ADULT DENTAL [address] [place] [address] Rajwinder Alfredo, WINSOME [address] [place] [address] case back from lab?? Social History Tobacco [...] Description 01/19/2025 1:15 PM EDT Office Visit [facility] MED & PEDS [address] [place] [address] Silvia Patton MD [address] [place] [address] documented as of this encounter Visit Diagnoses Not on filedocumented in this encounter Additional Health Concerns Assessment Noted Time PHQ-9 Depression Total Score: 024 1:24 PM EDT documented as of this encounter Care Teams Staffing Rn Relationship Specialty Start Date End Date Silvia Patton MD [address] [place] [address] PCP - General Family Medicine 06/15/18 documented as of this encounter
--- OUTSIDE RECORDS SUMMARY | 2024-10-14 13:39 | XMS_ITS | Encounter Summary ---
Author Organization [employer] Address [address] [facility] 7t [place] [address] Care Team Providers Care Environmental Engineering Aide Name Role Phone Silvia Patton MD Primary Care Provider [phone] Encounter Details Date Type Department Care Team (Late Contact Info) Description 11/18/2022 Abstract [place]/[employer] Information Management [address] [place], [place] [phone] Silvia Patton MD [address] [place], [place] [phone] Social History Tobacco Use Types Packs/Day Years [...] Department Care Team (Late Contact Info) Description 01/19/2025 1:15 PM EDT Office Visit [facility] CHC MED & PEDS [address] [place], [place] [phone] Silvia Patton MD [address] [place], [place] [phone] documented as of this encounter Visit Diagnoses Not on filedocumented in this encounter Additional Health Concerns Assessment Noted Time PHQ-9 Depression Total Score: 2 07/04/19 23 9:12 AM EST documented as of this encounter Care Teams Environmental Engineering Aide Relationship Specialty Start Date End Date Silvia Patton MD [address] [place] [address] PCP - General Family Medicine 06/15/18 documented as of this encounter
--- OUTSIDE RECORDS SUMMARY | 2024-10-14 13:39 | XMS_ITS | Clinical Summary ---
Author Organization [employer] Address [address] [facility] 7t [place] [address] Care Team Providers Care Elementary Science Teacher Name Role Phone Silvia Patton MD Primary Care Provider [phone] Allergies Active Allergy Reactions Criticality Noted Date [...] 023 Active Blood Glucose Monitoring Suppl (FreeStyle Ramsay Lite) w/Device kitIndications:Diabete s Mellitus USE TO [...] bedtime for moderate pain. 30 tablet Active Dulaglutide 1.5 MG/0.5ML solution auto-injectorIndicatio ns:Diabetes mellitus without complication (CMS/HCC) Inject 0.5 mL (1.5 mg) under the skin 1 (one) time per week. 2 mL Active glucose blood (FREESTYLE LITE) test stripIndications:Diabe robert mellitus without complication (CMS/HCC) USE TO TEST BLOOD SUGAR ONCE A DAY 100 strip Active metFORMIN (Glucophage) 1000 MG tablet TAKE 1 TABLET BY MOUTH TWICE A DAY 180 tablet 1 Active benazepril (Lotensin) 10 MG tabletIndications:Mitchel gn [...] Reorder (will not trigger notification to Pharmacy)) terbinafine (LamISIL) 250 MG tablet Take 1 tab orally daily for 3 months 90 tablet 024 2024 Discontinued( Therapy completed) Active Problems Problem Noted Date Diagnosed Date [...] Encounters Date Type Department Care Team Description 10/12/2024 11:00 AM EDT Office Visit [facility] MED & PEDS [address] [place] [address] Silvia Patton MD Screening for colon cancer (Primary Dx); Diabetes mellitus without complication (CMS/HCC); Benign essential hypertension; Impotence of organic origin 10/12/2024 Travel 10/07/2024 Refill [facility] MED & PEDS [address] [place] [address] Silvia Patton MD Pure hypercholesterolemi a; Benign essential hypertension 09/30/2024 Patient Outreach [facility] MEDICINE [address] [place], [place] [phone] Silvia Patton MD Pre-visit Planning (Pre visit planning LVM ) 08/26/2024 Population Health Risk Score [facility] () Department [address] [place] [phone] Provider, Population Health Generic from Last [...] Sign Reading Time Taken Comments Blood Pressure 120/80 10/12/2024 11:14 AM EDT Pulse 64 10/12/2024 11:14 AM EDT Temperature 36.5 ??C (97.7 ??F) 10/12/2024 11:14 AM E DT Respiratory Rate 20 10/12/2024 11:14 AM EDT Oxygen Saturation 97% 05/24/2024 12:02 PM EST Inhaled Oxygen Concentration - - Weight 97.1 kg (214 lb) 10/12/2024 11:14 AM EDT Height 185.4 cm (6' 1 ) 10/12/2024 11:14 AM EDT Body Mass Index 28.23 10/12/2024 11:14 AM EDT Plan of Treatment Upcoming Encounters Date Type Department Care Team (Late st Contact Info) Description 01/19/2025 1:15 PM EDT Office Visit [facility] MED & PEDS [address] [place], [place] [phone] Silvia Patton MD [address] [place] [address] Health Maintenance Due Date Last Done Comments [...] 08/19/2024 08/20/2023, 11/13, 05/30/2022, Additional history exists Depression Screening 10/14/2024 10/15/2023, 10/15/19 Dental X-Ray: Bitewings 12/23/2024 12/23/19 24, 03/11/2022, 04/02/2020, Additional history exists Diabetes: Hemoglobin A1C 01/11/2025 025, 05/24/2024, 02/23/2024, Additional history exists Alcohol/Substance Use Screening 05/24/2025 05/24/2024 SDOH Screening 05/24/2025 05/24/2024 Tobacco Screening 06/10/2025 06/10/2024 Diabetes: Foot Exam 10/12/2025 10/12/2024, 10/12/2024, 10/12/2024, Additional history exists Dental X-Ray: Full Mouth 12/23/2026 024, 03/06/2016, [...] Procedure Name Priority Date/Time Associated Diagnosis Comments POCT GLYCATED HEMOGLOBIN, TOTAL Routine 10/12/2024 11:26 AM EDT Diabetes mellitus without complication ([facility]) POCT GLUCOSE Routine 10/12/2024 11:25 AM EDT Diabetes mellitus without complication ([facility]) PSA, TOTAL Routine 10/11/2024 12:53 PM EDT Diabetes mellitus without complication (CMS/HCC) PROPHYLAXIS - [...] Recently Relevant to Health Maintenance Results * (ABNORMAL) POCT HGB A1C (10/12/2024 11:26 AM EDT) Hemoglobin A1C 7.5(A) 4.0 - 6.0 % QC Media Lot # [id number] Lot# Expiration Date Blood 10/12/2024 11:2 6 AM EDT us Silvia Patton MD POINT OF CARE TEST ENTER/EDIT ORDERABLES Final Result * POCT Glucose (10/12/2024 11:25 AM EDT) Glucose Blood, POC 147 60 - 200 mg/dL QC Media Lot # [id number] Lot# Expiration Date 7325 Blood Capillary blood specimen / Unknown 10/12/2024 11:25 AM EDT us Silvia Patton MD POINT OF CARE TEST ENTER/EDIT ORDERABLES Final Result * PSA,Total (10/11/2024 12:53 PM EDT) Prostate Specific Antigen 1.40 <0.05 - 4.0 ng/mL [facility] Comment:PSA methodology: Abb anthony Aliskyty i ChemiluminescentMicroparticle Immunoassay (CMIA) 10/11/2024 12:5 3 PM EDT 10/11/2024 12:53 PM EDT us Generic External Data Provider LAB BLOOD ORDERAB LES Final Result Performing Organization Address [facility]/ZIP Co de Phone Number [facility] [address] [place] [address] [phone] * Lipid Panel, Standard (08/20/2023 2:28 PM EST) Triglycerides 117 <150 mg/dL [facility] Comment:Desirable Triglyceri de: less than 150 mg/dLBorderline High Triglyceride 150-199 mg/dLHigh Triglyceride: 200-499 mg/dLVery High Triglyceride: greater than or equal to 5OO mg/dL Cholesterol 153 <200 mg/dL [facility] Comment:Desirable Cholestero l: less than 200 mg/dLBorderline High Cholesterol: 200-239 mg/dLHigh Cholesterol: greater than 239 mg/dL LDL Cholesterol Calculated 89 <100 mg/dL [facility] Comment:Desirable LDL: less than 100 mg/dLNear Optimal/Above Optimal LDL: 110- 129 mg/dLBorderline High LDL: 130-159 mg/dLHigh LDL: 160-189 mg/dLVery High LDL: greater than or equal to 190 mg/dL HDL Cholesterol 41 >40 mg/dL [facility] Comment:Desirable HDL: great er than 40 mg/dL Note: This HDL assay may give artificially low results in patients with liver disease. Blood Venous blood specimen / Unknown 08/20/2023 2:28 PM EST 08/20/2023 5:22 PM EST us Silvia Patton MD LAB BLOOD ORDERABLES Final Re sult Performing Organization Address City/[facility]/ZIP Co de Phone Number [facility] [address] [place] [address] [phone] * ALBUMIN, RANDOM URINE W/CREATININE (07/24/2021 [...] MD LAB URINE ORDERABLES Final Re sult [facility] [address] from Last 3 Months or Most Recently Relevant to Health Maintenance Insurance [facility] [place] [place] [address] [facility] [place] [address] [place] [address] Care Teams Elementary Science Teacher Relationship Specialty Start Date End Date Silvia Patton MD [address] [place] [address] [place] [address] PCP - General Family Medicine 06/15/18
--- OUTSIDE RECORDS SUMMARY | 2024-10-14 13:39 | XMS_ITS | Encounter Summary ---
Author Organization [employer] Address [address] [facility] 7t [place] [address] Care Team Providers Care Community Service Director Name Role Phone Silvia Patton MD Primary Care Provider Reason for Visit * Reason Comments Med Change Request Encounter Details Date Type Department Care Team ([facility] Contact Info) Description 01/01/2023 Refill [facility] MED & PEDS [address] [place], [place] [phone] Silvia Patton MD [address] [place], [place] [phone] Social History Tobacco Use Types Packs/Day Years [...] Upcoming Encounters Date Type Department Care Team ([facility] Contact Info) Description 01/19/2025 1:15 PM EDT Office Visit [facility] MED & PEDS [address] [place] [address] Silvia Patton MD [address] [place] [address] documented as of this encounter Visit Diagnoses Not on filedocumented in this encounter Additional Health Concerns Assessment Noted Time PHQ-9 Depression Total Score: 2 07/04/19 23 9:12 AM EST documented as of this encounter Care Teams Community Service Director Relationship Specialty Start Date End Date Silvia Patton MD [address] [place] [address] PCP - General Family Medicine 06/15/18 documented as of this encounter
--- OUTSIDE RECORDS SUMMARY | 2024-10-14 13:39 | XMS_ITS | Encounter Summary ---
Author Organization [employer] Address [address] [facility] 7t [place] [address] Care Team Providers Care Needle Setter Name Role Phone Silvia Patton MD Primary Care Provider [phone] Reason for Visit * Reason Onset Date Comments Nurse Triage 12/29/2023 Encounter Details Date Type Department Care Team ([facility] Contact Info) Description 12/29/2023 Telephone [facility] MEDICINE [address] [place], [place] [phone] Silvia Patton MD [address] [facility] [place] [address] Nurse Triage Social History Tobacco Use Types [...] VB I can send ozempic to either [facility] pharmacy, but in the future please advise pt when they call tocall our pharmacy as usually we have in stock. Thank you Pt called and advised. Per pt agreeable to have Rx sent to [facility] pharmacy but believes it is an [...] unable to obtain Ozempic. Pt adivsed of [facility] hours for rash or to call daily [...] accepted this outcome Please contact pt @ [phone] Hiral documented in this encounter Plan of Treatment Upcoming Encounters Date Type Department Care Team ([facility] st Contact Info) Description 01/19/2025 1:15 PM EDT Office Visit [facility] MED & PEDS [address] [place] [address] Silvia Patton MD [address] [place] [address] documented as of this encounter Visit Diagnoses Not on filedocumented in this encounter Additional Health Concerns Assessment Noted Time PHQ-9 Depression Total Score: 11 024 1:24 PM EDT documented as of this encounter Care Teams Needle Setter Relationship Specialty Start Date End Date Silvia Patton MD [address] [place] [address] PCP - General Family Medicine 06/15/18 documented as of this encounter
--- OUTSIDE RECORDS SUMMARY | 2024-10-14 13:39 | XMS_ITS | Encounter Summary ---
Author Organization [employer] Address [address] [facility] 7t [place] [address] Care Team Providers Care Teletray Operator Name Role Phone Silvia Patton MD Primary Care Provider [phone] Encounter Details Date Type Department Care Team (Latest Contact Info) Description 03/11/2022 Abstract [facility] CONVERSIONS Dental, Provider, DDS Social History [...] Upcoming Encounters Date Type Department Care Team ([facility] st Contact Info) Description 01/19/2025 1:15 PM EDT Office Visit [facility] CHC MED & PEDS [address] [place] [address] Silvia Patton MD [address] [place] [address] documented as of this encounter Visit Diagnoses Not on filedocumented in this encounter Care Teams Teletray Operator Relationship Specialty Start Date End Date Silvia Patton MD [address] [place] [address] PCP - General Family Medicine 06/15/18 documented as of this encounter
--- OUTSIDE RECORDS SUMMARY | 2024-10-14 13:39 | XMS_ITS | Encounter Summary ---
Author Organization [employer] Address [address] [facility] 7t [place] [address] Care Team Providers Care Internet Technology Manager Name Role Phone Silvia Patton MD Primary Care Provider Encounter Details Date Type Department Care Team (Latest Contact Info) Description 07/06/2019 Abstract [facility] CONVERSIONS Dental, Provider, DDS Social [...] Upcoming Encounters Date Type Department Care Team ([facility] st Contact Info) Description 01/19/2025 1:15 PM EDT Office Visit [facility] CHC MED & PEDS [address] [place] [address] Silvia Patton MD [address] [place] [address] documented as of this encounter Visit Diagnoses Not on filedocumented in this encounter Care Teams Internet Technology Manager Relationship Specialty Start Date End Date Silvia Patton MD [address] [place] [address] PCP - General Family Medicine 06/15/18 documented as of this encounter
--- OUTSIDE RECORDS SUMMARY | 2024-10-14 13:39 | XMS_ITS | Encounter Summary ---
Author Organization [employer] Address [address] [facility] 7t [place] [address] Care Team Providers Care Finishing Frame Runner Name Role Phone Silvia Patton MD Primary Care Provider [phone] Encounter Details Date Type Department Care Team ([facility] Contact Info) Description 10/12/2024 11:00 AM EDT Office Visit [facility] CHC MED & PEDS [address] [place], [place] [phone] Silvia Patton MD [address] [place], [place] [phone] Screening for colon cancer (Primary Dx); Diabetes mellitus without complication (CMS/HCC); Benign essential hypertension; Impotence of organic origin Social History Tobacco Use Types Packs/Day Years [...] AM EDT documented as of this encounter Last Filed Vital Signs Vital Sign Reading Time Taken Comments Blood Pressure 120/80 10/12/2024 11:14 AM EDT Pulse 64 10/12/2024 11:14 AM EDT Temperature 36.5 ??C (97.7 ??F) 10/12/2024 11:14 AM E DT Respiratory Rate 20 10/12/2024 11:14 AM EDT Oxygen Saturation - - Inhaled Oxygen Concentration - - Weight 97.1 kg (214 lb) 10/12/2024 11:14 AM EDT Height 185.4 cm (6' 1 ) 10/12/2024 11:14 AM EDT Body Mass Index 28.23 10/12/2024 11:14 AM EDT documented in this encounter Progress Notes * Silvia Patton MD - 10/12/2024 11:00 AM EDT Subjective Patient ID: Narayan Valdes is a 64 y.o. male who presents for f/u. Narayan is a 64-year-old male patient of mine with diabetes type 2, hypertension, etc. here for follow-up. Was seen in May with complaints of tinea pedis and treated accordingly. His last A1c in May was 7.0 and was congratulated. 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 Diabetes He presents for his follow-up diabetic visit. He has type 2 diabetes mellitus. His disease course has been stable. There are no hypoglycemic associated symptoms. Pertinent negatives for hypoglycemia include no dizziness, headaches or nervousness/anxiousness. Pertinent negatives for diabetes includeno chest pain, no foot ulcerations, no polydipsia, no polyuria and no visual change. There are no hypoglycemic complications. Pertinent negatives for diabetic complications include no CVA, heart disease, nephropathy or retinopathy. Risk factors for coronary artery disease include diabetes mellitus,male sex and hypertension. Current diabetic treatment includes oral agent (monotherapy) and diet (trulicity). He is compliant with treatment most of the time. Meal planning includes avoidance of concentrated sweets. He participates in exercise daily. An ARIANE inhibitor/angiotensin II receptor blockeris being taken. He sees a zigzag stitcher.Eye exam is current. Review of Systems Constitutional: Negative for activity change, chills, fever and unexpected weight change. Respiratory: Negative for cough, shortness of breath and wheezing. Cardiovascular: Negative for chest pain, palpitations and leg swelling. Gastrointestinal: Negative for abdominal pain and blood in stool. Endocrine: Negative for polydipsia and polyuria. Genitourinary: Negative for decreased urine volume, difficulty urinating, dysuria and hematuria. Musculoskeletal: Positive for arthralgias. Negative for gait problem. Skin: Negative for color change and rash. Neurological: Negative for dizziness and headaches. Hematological: Negative for adenopathy. Psychiatric/Behavioral: Negative for dysphoric mood, hallucinations, sleep disturbance and suicidalideas. The patient is not nervous/anxious. Objective BP 120/80 (BP Location: Left arm, Patient Position: Sitting, BP Cuff Size: Adult) Pulse64 Temp 97.7 ??F (36.5 ??C) (Oral) Resp 20 Ht 6' 1 (1.854 m) Wt 214 lb (97.1 kg) BMI 28.23 kg/m?? Physical Exam Constitutional: General: He is not in acute distress. Appearance: He is normal weight. HENT: Head: Normocephalic. Nose: Nose normal. Mouth/Throat: Mouth: Mucous membranes are moist. Comments: Has braces Eyes: Extraocular Movements: Extraocular movements intact. Pupils: Pupils are equal, round, and reactive to light. Cardiovascular: Rate and Rhythm: Normal rate and regular rhythm. Pulses: Dorsalis pedis pulses are 2+ on the right side and 2+ on the left side. Posterior tibial pulses are 2+ on the right side and 2+ on the left side. Heart sounds: Normal heart sounds. No murmur heard. Pulmonary: Effort: Pulmonary effort is normal. Breath sounds: Normal breath sounds. Abdominal: General: Bowel sounds are normal. There is no distension. Palpations: Abdomen is soft. There is no mass. Tenderness: There is no abdominal tenderness. There is no guarding. Musculoskeletal: General: Normal range of motion. Right lower leg: No edema. Left lower leg: No edema. Right foot: Normal range of motion. No deformity, bunion, Charcot foot or prominent metatarsal heads. Left foot: Normal range of motion. No deformity, bunion, Charcot foot or prominent metatarsal heads. Feet: Right foot: Protective Sensation: 7 sites tested. 7 sites sensed. Skin integrity: Skin integrity normal. No ulcer, blister, skin breakdown, erythema, warmth, callus or dry skin. Toenail Condition: Right toenails are normal. Left foot: Protective Sensation: 7 sites tested. 7 sites sensed. Skin integrity: Skin integrity normal. No ulcer, blister, skin breakdown, erythema, warmth, callus or dry skin. Toenail Condition: Left toenails are normal. Skin: Capillary Refill: Capillary refill takes less than 2 seconds. Findings: No rash. Neurological: Mental Status: He is oriented to person, place, and time. Psychiatric: Mood and Affect: Mood normal. Behavior: Behavior normal. Assessment/Plan Diagnoses and all orders for this visit: Screening for colon cancer Comments: Has had screening colonoscopy before. Cologuard now. Orders: - Albumin, Random Urine W/Creatinine; Future - Lipid Panel, Standard; Future - CBC auto differential; Future - Basic Metabolic Panel, Fasting; Future - Creatine Kinase, Total; Future - Cologuard?? colon cancer screening - Hepatic Function Panel; Future - TSH W/Reflex to FT4; Future Diabetes mellitus without complication (CMS/HCC) Comments: A1c is 7.5 today. Declines increasing trulicity dose today. Wants to watch diet better and lose weight he gaiend instead.RTC in 3 mos. REcheck A1c then and tx. Orders: - Albumin, Random Urine W/Creatinine; Future - Lipid Panel, Standard; Future - CBC auto differential; Future - Basic Metabolic Panel, Fasting; Future - Creatine Kinase, Total; Future - Hepatic Function Panel; Future - TSH W/Reflex to FT4; Future - POCT Glucose - POCT HGB A1C Benign essential hypertension Comments: Stable BP.oN amlodipine. check microalbumin,lipids,cbc,tfts,UA,etc.. today,call with results if abnormal. Eye exam UTD. RTC in 3 months . 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 documented in this encounter Plan of Treatment Upcoming Encounters Date Type Department Care Team (Late st Contact Info) Description 01/19/2025 1:15 PM EDT Office Visit [facility] CHC MED & PEDS [address] [place] [address] Silvia Patton MD [address] [place] [address] Scheduled Orders Name Type Priority Associated Diagnoses Orde r Schedule Albumin, Random Urine W/Creatinine Lab Routine Screening for colon cancer Diabetes mellitus without complication (CMS/HCC) Benign essential hypertension Expected: 10/12/2024 (Approximate), Expires: 10/12/2025 Lipid Panel, Standard Lab Routine Screening for colon cancer Diabetes mellitus without complication (CMS/HCC) Benign essential hypertension Expected: 10/12/2024 (Approximate), Expires: 10/12/2025 CBC auto differential Lab Routine Screening for colon cancer Diabetes mellitus without complication (CMS/HCC) Benign essential hypertension Expected: 10/12/2024 (Approximate), Expires: 10/12/2025 Basic Metabolic Panel, Fasting Lab Routine Screening for colon cancer Diabetes mellitus without complication (CMS/HCC) Benign essential hypertension Expected: 10/12/2024 (Approximate), Expires: 10/12/2025 Creatine Kinase, Total Lab Routine Screening for colon cancer Diabetes mellitus without complication (CMS/HCC) Benign essential hypertension Expected: 10/12/2024, Expires: 10/12/2025 Cologuard?? colon cancer screening Lab Routine Screening for colon cancer Ordered: 10/12/2024 Hepatic Function Panel Lab Routine Screening for colon cancer Diabetes mellitus without complication (CMS/HCC) Benign essential hypertension Expected: 10/12/2024 (Approximate), Expires: 10/12/2025 TSH W/Reflex to FT4 Lab Routine Screening for colon cancer Diabetes mellitus without complication (CMS/HCC) Benign essential hypertension Expected: 10/12/2024 (Approximate), Expires: 10/12/2025 documented as of this encounter Procedures Procedure Name Priority Date/Time Associated Diagnosis Comments POCT GLYCATED HEMOGLOBIN, TOTAL Routine 10/12/2024 11:26 AM EDT Diabetes mellitus without complication (CMS/HCC) POCT GLUCOSE Routine 10/12/2024 11:25 AM EDT Diabetes mellitus without complication (CMS/HCC) documented in this encounter Results * (ABNORMAL) POCT HGB A1C (10/12/2024 11:26 AM EDT) Hemoglobin A1C 7.5(A) 4.0 - 6.0 % QC Media Lot # [id number] Lot# Expiration Date 1 Blood 10/12/2024 11:2 6 AM EDT us Silvia Patton MD POINT OF CARE TEST ENTER/EDIT ORDERABLES Final Result * POCT Glucose (10/12/2024 11:25 AM EDT) Glucose Blood, POC 147 60 - 200 mg/dL QC Media Lot # [id number] Lot# Expiration Date 7,325 Blood Capillary blood specimen / Unknown 10/12/2024 11:25 AM EDT us Silvia Patton MD POINT OF CARE TEST ENTER/EDIT ORDERABLES Final Result documented in this encounter Visit Diagnoses Diagnosis Screening for colon cancer- Primary Special screening for malignant neoplasms, colon Diabetes mellitus without complication (CMS/HCC) Type II or unspecified type diabetes mellitus without mention of complication, not stated as uncontrolled Benign essential hypertension Essential hypertension, benign Impotence of organic origin documented in this encounter Additional Health Concerns Assessment Noted Time PHQ-9 Depression Total Score: 11 024 1:24 PM EDT documented as of this encounter Care Teams Finishing Frame Runner Relationship Specialty Start Date End Date Silvia Patton MD [address] [place] [address] PCP - General Family Medicine 06/15/18 documented as of this encounter
== END 2024-10-14 14:09 | disposition home or self-care (01) ==
LOC: HO.HUSH 13:21
PROVIDERS: PCP Pediatrics; Visit Provider Urology
DX: Z13.9 Encounter for screening, unspecified (principal)

== ENCOUNTER → 2024-10-14 13:21 | Outpatient (BNVA) | payer MEDICARE, MEDICAID, SELFPAY | PROVIDERS: PCP Pediatrics; Visit Provider Urology | DX: N32.81 Overactive bladder (principal); N52.01 Erectile dysfunction due to arterial insufficiency; E11.9 Type 2 diabetes mellitus without complications | CPT/HCPCS: 51798; 81003; 99212 ==

== ENCOUNTER 2024-10-20 11:22 | Outpatient (REF) | payer MEDICARE, MEDICAID, SELFPAY ==
[2024-10-20 11:36] LABS: MANUAL DIFF FLAG NO
[2024-10-20 12:00] LABS: Basophils Absolute Auto 0.1 X10*3/uL (0.0-0.2); Basophils Percent Auto 0.6 % (0-2); Eosinophils Absolute Auto 0.2 X10*3/uL (0.0-0.4); Eosinophils Percent Auto 2.9 % (0-4); Hematocrit 40.7 % (42.0-52.0); Hemoglobin 13.9 g/dl (14.0-18.0); Imm Gran Abs Auto 0.05 X10*3/uL (0.00-0.03); Imm Gran Pct Auto 0.6 % (0.0-0.4); Lymphocytes Absolute Auto 1.7 X10*3/uL (1.2-4.9); Lymphocytes Percent Auto 20.2 % (20-40); Mean Corpuscular HGB Conc 34.2 g/dl (31.0-36.0); Mean Corpuscular Hemoglobin 29.3 pg (27.0-33.0); Mean Corpuscular Volume 85.9 fL (80.0-98.0); Mean Platelet Volume 10.7 fL (9.4-12.4); Monocytes Absolute Auto 0.6 X10*3/uL (0.1-1.2); Monocytes Percent Auto 7.3 % (2-11); Neutrophils Absolute Auto 5.7 x10*3/uL (2.0-8.3); Neutrophils Percent Auto 68.4 % (45-73); Platelet Count 248 X10*3/uL (160-400); Red Blood Count 4.74 X10*6/uL (4.60-5.80); Red Cell Distribution Width 12.9 % (11.0-16.0); White Blood Count 8.3 X10*3/uL (4.8-10.8)
[2024-10-20 12:46] LABS: Alanine Aminotransferase 45 U/L (0-40); Albumin Level 4.2 g/dL (3.5-5.0); Alkaline Phosphatase 71 U/L (39-117); Anion Gap 11 (12-20); Aspartate Amino Transferase 33 U/L (5-37); Bilirubin Direct 0.2 mg/dL (0.0-0.5); Bilirubin Total 0.5 mg/dL (0.0-1.0); Blood Urea Nitrogen 25 mg/dL (9-16); Calcium 9.2 mg/dL (8.4-10.2); Carbon Dioxide 21 mmol/L (22-29); Chloride 111 mmol/L (96-108); Cholesterol 125 mg/dL (<200); Estimated Glomerular Filt Rate > 60; Glucose Fasting 117 mg/dL (60-99); HDL Cholesterol 44 mg/dL (>40); LDL Cholesterol Calculated 66 mg/dL (<100); Potassium 3.6 mmol/L (3.3-5.1); Sodium 139 mmol/L (135-145); Total Protein 7.2 g/dL (6.5-8.0); Triglycerides 76 mg/dL (<150)
--- OUTSIDE RECORDS SUMMARY | 2024-10-20 12:53 | XMS_ITS | Encounter Summary ---
Author Organization [employer] Address [address] [facility] [address] 7t [place] [address] Care Team Providers Care Oncology Physician Assistant Name Role Phone Silvia Patton MD Primary Care Provider [phone] Reason for Visit * Reason Onset Date Comments shade 03/31/2023 Encounter Details Date Type Department Care Team ([facility] Contact Info) Description 03/31/2023 Telephone [facility] ADULT DENTAL [address] [place], [place] [phone] Cheryl Rothman BDS shade Social History Tobacco [...] to when you called. But Christiano from [employer] is the rep that called in. If you would like to clarify with him * Telephone Encounter - Siena Fishman - 03/31/2023 2:42 PM EDT Christiano from [employer] called that they do not have a shade on case. Pls reach out to lab documented in this encounter Plan of Treatment Upcoming Encounters Date Type Department Care Team (Late st Contact Info) Description 01/19/2025 1:15 PM EDT Office Visit [facility] CHC MED & PEDS [address] [place] [address] Silvia Patton MD [address] [place] [address] documented as of this encounter Visit Diagnoses Not on filedocumented in this encounter Additional Health Concerns Assessment Noted Time PHQ-9 Depression Total Score: 2 07/04/19 23 9:12 AM EST documented as of this encounter Care Teams Oncology Physician Assistant Relationship Specialty Start Date End Date Silvia Patton MD [address] [place] [address] PCP - General Family Medicine 06/15/18 documented as of this encounter
--- OUTSIDE RECORDS SUMMARY | 2024-10-20 12:53 | XMS_ITS | Encounter Summary ---
Author Organization [employer] Address [address] [facility] 7t [place] [address] Care Team Providers Care Business Integration Analyst Name Role Phone Silvia Patton MD Primary Care Provider [phone] Encounter Details Date Type Department Care Team (Latest Contact Info) Description 11/10/2018 Abstract [facility] CONVERSIONS Dental, Provider, DDS Social History [...] Upcoming Encounters Date Type Department Care Team ([facility] st Contact Info) Description 01/19/2025 1:15 PM EDT Office Visit [facility] CHC MED & PEDS [address] [place] [address] Silvia Patton MD [address] [place] [address] documented as of this encounter Visit Diagnoses Not on filedocumented in this encounter Care Teams Business Integration Analyst Relationship Specialty Start Date End Date Silvia Patton MD [address] [place] [address] PCP - General Family Medicine 06/15/18 documented as of this encounter
--- OUTSIDE RECORDS SUMMARY | 2024-10-20 12:53 | XMS_ITS | Encounter Summary ---
Author Organization [employer] Address [address] [facility] 7t [place] [address] Care Team Providers Care Contact Centre Supervisor Name Role Phone Silvia Patton MD Primary Care Provider [phone] Reason for Visit * Reason Onset Date Comments Nurse Triage 12/29/2023 Encounter Details Date Type Department Care Team ([facility] Contact Info) Description 12/29/2023 Telephone [facility] MEDICINE [address] [place] [address] Silvia Patton MD [address] [facility] [place] [address] Nurse Triage Social History Tobacco Use Types [...] VB I can send ozempic to either [facility] pharmacy, but in the future please advise pt when they call tocall our pharmacy as usually we have in stock. Thank you Pt called and advised. Per pt agreeable to have Rx sent to [facility] pharmacy but believes it is an [...] like or painful. Very itchy. Pt offered TNC appt slot with Dr. Fay tomorrow. Pt declines x 3 as only wants appts with PCP. Pt advised nothing with PCP this week. Will send note to provider to review regardingalt tx for DM since pt unable to obtain Ozempic. Pt adivsed of [facility] hours for rash or to call [...] accepted this outcome Please contact pt @ [phone] Hiral documented in this encounter Plan of Treatment Upcoming Encounters Date Type Department Care Team ([facility] st Contact Info) Description 01/19/2025 1:15 PM EDT Office Visit [facility] MED & PEDS [address] [place] [address] Silvia Patton MD [address] [place] [address] documented as of this encounter Visit Diagnoses Not on filedocumented in this encounter Additional Health Concerns Assessment Noted Time PHQ-9 Depression Total Score: 11 024 1:24 PM EDT documented as of this encounter Care Teams Contact Centre Supervisor Relationship Specialty Start Date End Date Silvia Patton MD [address] [place] [address] PCP - General Family Medicine 06/15/18 documented as of this encounter
--- OUTSIDE RECORDS SUMMARY | 2024-10-20 12:53 | XMS_ITS | Encounter Summary ---
Author Organization [employer] Address [address] [facility] 7t [place] [address] Care Team Providers Care Portfolio Architect Name Role Phone Silvia Patton MD Primary Care Provider [phone] Encounter Details Date Type Department Care Team [...] Upcoming Encounters Date Type Department Care Team ([facility] st Contact Info) Description 01/19/2025 1:15 PM EDT Office Visit [facility] CHC MED & PEDS [address] [place] [address] Silvia Patton MD [address] [place] [address] documented as of this encounter Visit Diagnoses Not on filedocumented in this encounter Care Teams Portfolio Architect Relationship Specialty Start Date End Date Silvia Patton MD [address] [place] [address] PCP - General Family Medicine 06/15/18 documented as of this encounter
--- OUTSIDE RECORDS SUMMARY | 2024-10-20 12:53 | XMS_ITS | Encounter Summary ---
Author Organization [employer] Address [address] [facility] 7t [place] [address] Care Team Providers Care Slime Plant Operator Name Role Phone Silvia Patton MD Primary Care Provider [phone] Encounter Details Date Type Department Care Team (Late Contact Info) Description 11/18/2022 Abstract [employer] [facility] [address] [place], [place] [phone] Silvia Patton MD [address] [place], [place] [phone] Social History Tobacco Use Types Packs/Day Years [...] Description 01/19/2025 1:15 PM EDT Office Visit [facility] CHC MED & PEDS [address] [place], [place] [phone] Silvia Patton MD [address] [place], [place] [phone] documented as of this encounter Visit Diagnoses Not on filedocumented in this encounter Additional Health Concerns Assessment Noted Time PHQ-9 Depression Total Score: 2 07/04/19 23 9:12 AM EST documented as of this encounter Care Teams Slime Plant Operator Relationship Specialty Start Date End Date Silvia Patton MD [address] [place] [address] PCP - General Family Medicine 06/15/18 documented as of this encounter
--- OUTSIDE RECORDS SUMMARY | 2024-10-20 12:53 | XMS_ITS | Encounter Summary ---
Author Organization [employer] Address [address] [facility] 7t [place] [address] Care Team Providers Care Guest Services Attendant Name Role Phone Silvia Patton MD Primary Care Provider [phone] Encounter Details Date Type Department Care Team (Latest Contact Info) Description 07/06/2019 Abstract [facility] CONVERSIONS Dental, Provider, DDS Social History [...] Upcoming Encounters Date Type Department Care Team ([facility] Contact Info) Description 01/19/2025 1:15 PM EDT Office Visit [facility] CHC MED & PEDS [address] [place] [address] Silvia Patton MD [address] [place] [address] documented as of this encounter Visit Diagnoses Not on filedocumented in this encounter Care Teams Guest Services Attendant Relationship Specialty Start Date End Date Silvia Patton MD [address] [place] [address] PCP - General Family Medicine 06/15/18 documented as of this encounter
--- OUTSIDE RECORDS SUMMARY | 2024-10-20 12:53 | XMS_ITS | Encounter Summary ---
Author Organization [employer] Address [address] [facility] 7t [place] [address] Care Team Providers Care Community Support Specialist Name Role Phone Silvia Patton MD Primary Care Provider [phone] Reason for Visit * Reason Comments Med Change Request Encounter Details Date Type Department Care Team ([facility] Contact Info) Description 01/01/2023 Refill [facility] CHC MED & PEDS [address] [place], [place] [phone] Silvia Patton MD [address] [place] [address] Social History Tobacco Use Types Packs/Day Years [...] Upcoming Encounters Date Type Department Care Team ([facility] Contact Info) Description 01/19/2025 1:15 PM EDT Office Visit [facility] MED & PEDS [address] [place] [address] Silvia Patton MD [address] [place] [address] documented as of this encounter Visit Diagnoses Not on filedocumented in this encounter Additional Health Concerns Assessment Noted Time PHQ-9 Depression Total Score: 2 07/04/19 23 9:12 AM EST documented as of this encounter Care Teams Community Support Specialist Relationship Specialty Start Date End Date Silvia Patton MD [address] [place] [address] PCP - General Family Medicine 06/15/18 documented as of this encounter
--- OUTSIDE RECORDS SUMMARY | 2024-10-20 12:53 | XMS_ITS | Encounter Summary ---
Author Organization [employer] Address [address] [facility] [address] 7t [place] [address] Care Team Providers Care Rn Womens Health Name Role Phone Silvia Patton MD Primary Care Provider [phone] Reason for Visit * Reason Onset Date Comments case back from lab?? 04/19/2024 Encounter Details Date Type Department Care Team ([facility] Contact Info) Description 04/19/2024 Telephone [facility] CHC ADULT DENTAL [address] [place] [address] Rajwinder Alfredo, WINSOME [address] [place] [address] case back from lab?? Social History Tobacco [...] Description 01/19/2025 1:15 PM EDT Office Visit [facility] CHC MED & PEDS [address] [place] [address] Silvia Patton MD [address] [place] [address] documented as of this encounter Visit Diagnoses Not on filedocumented in this encounter Additional Health Concerns Assessment Noted Time PHQ-9 Depression Total Score: 024 1:24 PM EDT documented as of this encounter Care Teams Rn Womens Health Relationship Specialty Start Date End Date Silvia Patton MD [address] [place] [address] PCP - General Family Medicine 06/15/18 documented as of this encounter
--- OUTSIDE RECORDS SUMMARY | 2024-10-20 12:53 | XMS_ITS | Clinical Summary ---
Author Organization [employer] Address [address] [facility] 7t [place] [address] Care Team Providers Care Senior It Engineer Name Role Phone Silvia Patton MD Primary Care Provider [phone] Allergies Active Allergy Reactions Criticality Noted Date [...] 023 Active Blood Glucose Monitoring Suppl (FreeStyle Benton Lite) w/Device kitIndications:Diabete s Mellitus USE TO [...] BY MOUTH EVERY DAY 90 tablet 3 Active Aspirin Low Dose 81 MG EC tabletIndications:Mitchel gn essential hypertension TAKE 1 TABLET BY MOUTH EVERY DAY 90 tablet 3 025 Active amLODIPine (Norvasc) 10 MG tabletIndications:Mitchel gn essential hypertension TAKE 1 TABLET BY MOUTH EVERY DAY 90 tablet 1 Active rosuvastatin (Crestor) 5 MG tabletIndications:Pure hypercholesterolemia [...] Description 10/12/2024 11:00 AM EDT Office Visit [facility] MED & PEDS [address] [place] [address] Silvia Patton MD Screening for colon cancer (Primary Dx); Diabetes mellitus without complication (CMS/HCC); Benign essential hypertension; Impotence of organic origin 10/12/2024 Travel 10/07/2024 Refill [facility] MED & PEDS [address] [place] [address] Silvia Patton MD Pure hypercholesterolemi a; Benign essential hypertension 09/30/2024 Patient Outreach [facility] [address] [place], [place] [phone] Silvia Patton MD Pre-visit Planning (Pre visit planning LVM ) 08/26/2024 Population Health Risk Score [facility] () Department [address] [place] [id number] Provider, Population Health Generic from Last [...] 1:15 PM EDT Office Visit [facility] MED & PEDS [address] [place], [place] [phone] Silvia Patton MD [address] [place], [place] [phone] Health Maintenance Due Date Last Done Comments [...] 03/11/2022, Additional history exists Lipid Panel 08/19/2024 10/20/2024, 03/0 12/2023, 11/28/2022, Additional history exists Depression Screening 10/14/2024 10/15/2023, [...] Procedure Name Priority Date/Time Associated Diagnosis Comments HEPATIC FUNCTION PANEL Routine 10/20/2024 11:34 AM EDT Screening for colon cancer Diabetes mellitus without complication (CMS/HCC) Benign essential hypertension CREATINE KINASE, TOTAL Routine 10/20/2024 11:34 AM EDT Screening for colon cancer Diabetes mellitus without complication (CMS/HCC) Benign essential hypertension BASIC METABOLIC PANEL, FASTING Routine 10/20/2024 11:34 AM EDT Screening for colon cancer Diabetes mellitus without complication (CMS/HCC) Benign essential hypertension CBC WITH AUTO DIFFERENTIAL Routine 10/20/2024 11:34 AM EDT Screening for colon cancer Diabetes mellitus without complication (CMS/HCC) Benign essential hypertension LIPID PANEL, STANDARD Routine 10/20/2024 11:34 AM EDT Screening for colon cancer Diabetes mellitus without complication (CMS/HCC) Benign essential hypertension POCT GLYCATED HEMOGLOBIN, TOTAL Routine 10/12/2024 11:26 AM EDT Diabetes mellitus without complication (CMS/HCC) POCT GLUCOSE Routine 10/12/2024 11:25 AM EDT Diabetes mellitus without complication (CMS/HCC) PSA, TOTAL Routine 10/11/2024 12:53 PM EDT Diabetes mellitus without complication (CMS/HCC) PROPHYLAXIS - ADULT Routine 12/23/2023 3 :00 PM EDT INTRAORAL - COMPLETE SERIES OF RADIOGRAPHIC IMAGES Routine 12/23/2023 3:00 PM EDT PERIODIC ORAL EVALUATION - ESTABLISHED PATIENT Routine 12/23/2023 3:00 PM EDT ALBUMIN, RANDOM URINE W/CREATININE Routine 07/24/2021 11:15 AM EST from Last 3 Months or Most Recently Relevant to Health Maintenance Results * (ABNORMAL) CBC auto differential (10/20/2024 11:34 AM EDT) White Blood Count 8.3 4.8 - 10.8 X10*3/uL [facility] Red Blood Count 4.74 4.60 - 5.80 X10*6/uL [facility] Hemoglobin 13.9(L) 14.0 - 18.0 g/dl [facility] Hematocrit 40.7(L) 42.0 - 52.0 % [facility] Mean Corpuscular Volume 85.9 80.0 - 98.0 fL [facility] Mean Corpuscular Hemoglobin 29.3 27.0 - 33.0 pg [facility] Mean Corpuscular HGB Conc 34.2 31.0 - 36.0 g/dl [facility] Red Cell Distribution Width 12.9 11.0 - 16.0 % [facility] Platelet Count 248 160 - 400 X10*3/uL [facility] Mean Platelet Volume 10.7 9.4 - 12.4 fL [facility] Neutrophils Percent Auto 68.4 45 - 73 % [facility] Imm Gran Pct Auto 0.6(H) 0.0 - 0.4 % [facility] Lymphocytes Percent Auto 20.2 20 - 40 % [facility] Monocytes Percent Auto 7.3 2 - 11 % [facility] Eosinophils Percent Auto 2.9 0 - 4 % [facility] Basophils Percent Auto 0.6 0 - 2 % [facility] NRBC Pct Auto 0.0 0.0 - 0.2 /100WBC [facility] Neutrophils Absolute Auto 5.7 2.0 - 8.3 x10*3/uL [facility] Imm Gran Abs Auto 0.05(H) 0.00 - 0.03 X10*3/uL [facility] Lymphocytes Absolute Auto 1.7 1.2 - 4.9 X10*3/uL [facility] Monocytes Absolute Auto 0.6 0.1 - 1.2 X10*3/uL [facility] Eosinophils Absolute Auto 0.2 0.0 - 0.4 X10*3/uL [facility] Basophils Absolute Auto 0.1 0.0 - 0.2 X10*3/uL [facility] NRBC Abs Auto 0.000 0.0 - 0.012 X10*3/uL [facility] Blood Venous blood specimen / Unknown 10/20/2024 11:34 AM EDT 10/20/2024 11:34 AM EDT us Silvia Patton MD LAB BLOOD ORDERABLES Final Re sult [facility] [address] [place] [phone] [phone] * (ABNORMAL) POCT HGB A1C (10/12/2024 11:26 AM EDT) Hemoglobin A1C 7.5(A) 4.0 - 6.0 % QC Media Lot # [id number] Lot# Expiration Date Blood 10/12/2024 11:2 6 AM EDT Silvia Patton MD POINT OF CARE TEST ENTER/EDIT ORDERABLES Final Result * POCT Glucose (10/12/2024 11:25 AM EDT) Glucose Blood, POC 147 60 - 200 mg/dL QC Media Lot # [id number] Lot# Expiration Date Blood Capillary blood specimen / Unknown 10/12/2024 11:25 AM EDT Silvia Patton MD POINT OF CARE TEST ENTER/EDIT ORDERABLES Final Result * PSA,Total (10/11/2024 12:53 PM EDT) Prostate Specific Antigen 1.40 <0.05 - 4.0 ng/mL [facility] Comment:PSA methodology: Martin Anderson i ChemiluminescentMicroparticle Immunoassay (CMIA) 10/11/2024 12:5 3 PM EDT 10/11/2024 12:53 PM EDT us Generic External Data Provider LAB BLOOD ORDERAB LES Final Result [facility] [address] [place] [phone] * ALBUMIN, RANDOM URINE W/CREATININE (07/24/2021 11:15 AM EST) Microalbumin Urine 2.4 See Note: mg/dL [facility] Comment: Reference Range: ?? Reference Range Not established Microalb/Creat Ratio 11 <30 mcg/mg creat [facility] Comment: ?? The ADA defines [...] MD LAB URINE ORDERABLES Final Re sult [facility] [address] from Last 3 Months or Most Recently Relevant to Health Maintenance Insurance # 1 [place] [address] [facility] STANDARD MEDICARE [place] [id number] [place] STAND ADULT [place] [id number] [place] [id number] [place] [id number] Care Teams Senior It Engineer Relationship Specialty Start Date End Date Silvia Patton MD [address] [place] [address] [place] [address] PCP - General Family Medicine 06/15/18
[2024-10-20 13:02] LABS: Creatinine Urine 132.83 mg/dL
[2024-10-20 13:04] LABS: TSH reflex Free T4 1.36 uIU/mL (0.32-4.0)
== END 2024-10-20 11:23 | disposition home or self-care (01) ==
LOC: HO.LAB 11:22
PROVIDERS: PCP Pediatrics; Visit Provider Pediatrics
DX: Z12.11 Encounter for screening for malignant neoplasm of colon (principal); E11.9 Type 2 diabetes mellitus without complications; I10 Essential (primary) hypertension
CPT/HCPCS: 36415; 80048; 80061; 80076; 82043; 82550; 82570; 84443; 85025

== ENCOUNTER 2024-11-02 09:09 | Outpatient (REF) | payer MEDICARE, MEDICAID, SELFPAY ==
--- OUTSIDE RECORDS SUMMARY | 2024-11-02 10:24 | XMS_ITS | Encounter Summary ---
Author Organization [employer] Address [address] [facility] 7t [place] [address] Care Team Providers Care Internet Marketing Executive Name Role Phone Silvia Patton MD Primary Care Provider [phone] Reason for Visit * Reason Onset Date Comments Nurse Triage 12/29/2023 Encounter Details Date Type Department Care Team ([facility] Contact Info) Description 12/29/2023 Telephone [facility]ICINE [address] [place] [address] Silvia Pattno MD [address] [facility] [place] [address] Nurse Triage Social History Tobacco Use Types [...] VB I can send ozempic to either [facility] pharmacy, but in the future please advise pt when they call tocall our pharmacy as usually we have in stock. Thank you Pt called and advised. Per pt agreeable to have Rx sent to [facility] pharmacy but believes it is an [...] like or painful. Very itchy. Pt offered [facility] appt slot with Dr. Fay tomorrow. Pt declines x 3 as only wants appts with PCP. Pt advised nothing with PCP this week. Will send note to provider to review regardingalt tx for DM since pt unable to obtain Ozempic. Pt adivsed of [facility] hours for rash or to call daily [...] accepted this outcome Please contact pt @ [phone] Hiral documented in this encounter Plan of Treatment Upcoming Encounters Date Type Department Care Team ([facility] st Contact Info) Description 01/19/2025 1:15 PM EDT Office Visit [facility] MED & PEDS [address] [place] [address] Silvia Patton MD [address] [place] [address] documented as of this encounter Visit Diagnoses Not on filedocumented in this encounter Additional Health Concerns Assessment Noted Time PHQ-9 Depression Total Score: 11 024 1:24 PM EDT documented as of this encounter Care Teams Internet Marketing Executive Relationship Specialty Start Date End Date Silvia Patton MD [address] [place] [address] PCP - General Family Medicine 06/15/18 documented as of this encounter
--- OUTSIDE RECORDS SUMMARY | 2024-11-02 10:24 | XMS_ITS | Encounter Summary ---
Author Organization [employer] Address [address] [facility] 7t [place] [address] Care Team Providers Care Publications Manager Name Role Phone Silvia Patton MD Primary Care Provider [phone] Encounter Details Date Type Department Care Team (Latest Contact Info) Description 07/06/2019 Abstract [facility] CONVERSIONS Dental, Provider, DDS Social [...] Upcoming Encounters Date Type Department Care Team ([facility] Contact Info) Description 01/19/2025 1:15 PM EDT Office Visit [facility] CHC MED & PEDS [address] [place] [address] Silvia Patton MD [address] [place] [address] documented as of this encounter Visit Diagnoses Not on filedocumented in this encounter Care Teams Publications Manager Relationship Specialty Start Date End Date Silvia Patton MD [address] [place] [address] PCP - General Family Medicine 06/15/18 documented as of this encounter
--- OUTSIDE RECORDS SUMMARY | 2024-11-02 10:24 | XMS_ITS | Encounter Summary ---
Author Organization [employer] Address [address] [facility] 7t [place] [address] Care Team Providers Care [employer] Webcenter Consultant Name Role Phone Silvia Patton MD Primary Care Provider [phone] Encounter Details Date Type Department Care Team (Latest Contact Info) Description 11/10/2018 Abstract [facility] CONVERSIONS Dental, Provider, DDS Social History [...] Upcoming Encounters Date Type Department Care Team ([facility] Contact Info) Description 01/19/2025 1:15 PM EDT Office Visit [facility] CHC MED & PEDS [address] [place] [address] Silvia Patton MD [address] [place] [address] documented as of this encounter Visit Diagnoses Not on filedocumented in this encounter Care Teams [employer] Consultant Relationship Specialty Start Date End Date Silvia Patton MD [address] [place] [address] PCP - General Family Medicine 06/15/18 documented as of this encounter
--- OUTSIDE RECORDS SUMMARY | 2024-11-02 10:24 | XMS_ITS | Encounter Summary ---
Author Organization [employer] Address [address] [facility] 7t [place] [address] Care Team Providers Care Ribbon Hand Name Role Phone Silvia Patton MD Primary Care Provider [phone] Encounter Details Date Type Department Care Team (Latest Contact Info) Description 03/11/2022 Abstract [facility] CONVERSIONS Dental, Provider, DDS Social History [...] Upcoming Encounters Date Type Department Care Team ([facility] st Contact Info) Description 01/19/2025 1:15 PM EDT Office Visit [facility] CHC MED & PEDS [address] [place] [address] Silvia Patton MD [address] [place] [address] documented as of this encounter Visit Diagnoses Not on filedocumented in this encounter Care Teams Ribbon Hand Relationship Specialty Start Date End Date Silvia Patton MD [address] [place] [address] PCP - General Family Medicine 06/15/18 documented as of this encounter
--- OUTSIDE RECORDS SUMMARY | 2024-11-02 10:25 | XMS_ITS | Encounter Summary ---
Author Organization [employer] Address [address] [facility] [facility] [address] 7t [place] [address] Care Team Providers Care Transmission Tester Name Role Phone Silvia Patton MD Primary Care Provider [phone] Reason for Visit * Reason Onset Date Comments case back from lab?? 04/19/2024 Encounter Details Date Type Department Care Team ([facility] Contact Info) Description 04/19/2024 Telephone [facility] ADULT DENTAL [address] [place] [address] Rajwinder Alfredo, WINSOME [address] [place] [address] case back from lab?? Social History Tobacco [...] Description 01/19/2025 1:15 PM EDT Office Visit [facility] CHC MED & PEDS [address] [place] [address] Silvia Patton MD [address] [place] [address] documented as of this encounter Visit Diagnoses Not on filedocumented in this encounter Additional Health Concerns Assessment Noted Time PHQ-9 Depression Total Score: 024 1:24 PM EDT documented as of this encounter Care Teams Transmission Tester Relationship Specialty Start Date End Date Silvia Patton MD [address] [place] [address] PCP - General Family Medicine 06/15/18 documented as of this encounter
--- OUTSIDE RECORDS SUMMARY | 2024-11-02 10:25 | XMS_ITS | Encounter Summary ---
Author Organization [employer] Address [address] [place] [address] 7 [place] [address] Care Team Providers Care Offbearer Sewer Pipe Name Role Phone Silvia Patton MD Primary Care Provider [phone] Encounter Details Date Type Department Care Team (Late Contact Info) Description 11/18/2022 Abstract [facility] [address] [place], [place] [phone] Silvia Patton MD [address] [place], [place] [phone] Social History Tobacco Use Types Packs/Day Years [...] Description 01/19/2025 1:15 PM EDT Office Visit [facility] CHC MED & PEDS [address] [place], [place] [phone] Silvia Patton MD [address] [place], [place] [phone] documented as of this encounter Visit Diagnoses Not on filedocumented in this encounter Additional Health Concerns Assessment Noted Time PHQ-9 Depression Total Score: 2 07/04/19 23 9:12 AM EST documented as of this encounter Care Teams Offbearer Sewer Pipe Relationship Specialty Start Date End Date Silvia Patton MD [address] [place] [phone] PCP - General Family Medicine 06/15/18 documented as of this encounter
--- OUTSIDE RECORDS SUMMARY | 2024-11-02 10:25 | XMS_ITS | Encounter Summary ---
Author Organization [employer] Address [address] [facility] 7t [place] [address] Care Team Providers Care E Commerce Strategist Name Role Phone Silvia Patton MD Primary Care Provider [phone] Reason for Visit * Reason Onset Date Comments Results 10/24/2024 Encounter Details Date Type Department Care Team ([facility] Contact Info) Description 10/24/2024 Telephone [facility] CHC MED & PEDS [address] [place], [place] [phone] Silvia Patton MD [address] [place] [address] Results Social History Tobacco Use Types Packs/Day Years [...] encounter Miscellaneous Notes * Telephone Encounter - Jazmyne Bray RN - 11/01/2024 11:00 AM EDT Images from the original note were not included. TC placed to pt per below PCP message. Advised pt that PCP ordered more labs that do not require the pt to fast. Advised pt to go to lab today if he can. Pt reports they can't go to the lab today, but will go tomorrow. Advised pt to drink lots of water. Advised pt PCP is referring to rheumatology as well. Pt verbalized understanding and denies questions at this time. Advised pt to call office with any questions. Silvia Patton MD to Me (Selected Message) 11/01/24 10:57 AM Please tell him I am ordering more labs ( no fasting required ) can go to lab today if he can, needs to drink lots of water and will refer him to rheumatology as well. * Telephone Encounter - Jazmyne Bray RN - 11/01/2024 10:39 AM EDT TC placed to pt per below PCP message. Advised pt that labs are normal but PCP would like for pt tostop taking cholesterol medication rosuvastatin (Crestor) because it is causing inflammation of muscles. Advised pt PCP would like for them to drink lots of water and recheck CPK level in 2-3 weeks (Fasting not needed). Pt reports they have not taken the rosuvastatin (Crestor) in a long time. Advised pt to drink a lot of water. Message forwarded to PCP to review and advise. ----- Message from Silvia Patton MD sent at 10/21/2024 7:19 AM EDT ----- Please inform Narayan that his labs show that they are all normal but I need him to stop taking his cholesterol medication again ( Crestor /rosuvastatin) because it is causing inflammation of his muscles ( high CPK level) and I need him to drink lots of water and will recheck CPK level in 2-3 weeks ( no fasting needed) .I ordered labs already.Thanks * Telephone Encounter - Rhea Aguero - 11/01/2024 8:29 AM EDT Tc from pt returning call regarding results. Contact pt at [phone] (denied aerobics teacher) * Telephone Encounter - Kamren Burkett RN - 10/24/2024 10:35 AM EDT ----- Message from Silvia Patton MD sent at 10/21/2024 7:19 AM EDT ----- Please inform Narayan that his labs show that they are all normal but I need him to stop taking his cholesterol medication again ( Crestor /rosuvastatin) because it is causing inflammation of his muscles ( high CPK level) and I need him to drink lots of water and will recheck CPK level in 2-3 weeks ( no fasting needed) .I ordered labs already.Thanks ------ TC to pt. No answer. VM left by cotton grader. Letter will be sent stating to call clinic as this is RN second attempt at calling pt on separate days. documented in this encounter Plan of Treatment Upcoming Encounters Date Type Department Care Team (Late st Contact Info) Description 01/19/2025 1:15 PM EDT Office Visit [facility] MED & PEDS [address] [place] [address] Silvia Patton MD [address] [place] [address] documented as of this encounter Visit Diagnoses Not on filedocumented in this encounter Additional Health Concerns Assessment Noted Time PHQ-9 Depression Total Score: 11 024 1:24 PM EDT documented as of this encounter Care Teams E Commerce Strategist Relationship Specialty Start Date End Date Silvia Patton MD [address] [place] [address] PCP - General Family Medicine 06/15/18 documented as of this encounter
--- OUTSIDE RECORDS SUMMARY | 2024-11-02 10:25 | XMS_ITS | Clinical Summary ---
Author Organization [employer] Address [address] [facility] [address] [place] [address] Care Team Providers Care Facilities Maintenance Manager Name Role Phone Silvia Patton MD Primary Care Provider [phone] Allergies Active Allergy Reactions Criticality Noted Date [...] 023 Active Blood Glucose Monitoring Suppl (FreeStyle [place] Lite) w/Device kitIndications:Diabete s Mellitus USE TO [...] Encounters Date Type Department Care Team Description 11/01/2024 Orders Only [facility] [address] [place] [address] Silvia Patton MD Elevated CPK (Primary Dx); Other atopic dermatitis 10/24/2024 Telephone [facility] [address] [place] [address] Silvia Patton MD Results 10/21/2024 Telephone [facility] [address] [place] [address] Silvia Patton MD Results; Medication Question 10/21/2024 Orders Only [facility] [address] [place] [address] Silvia Patton MD Elevated CPK (Primary Dx); 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 10/12/2024 11:00 AM EDT Office Visit [facility] [address] [place] [address] Silvia Patton MD Screening for colon cancer (Primary Dx); Diabetes mellitus without complication (CMS/HCC); Benign essential hypertension; Impotence of organic origin 10/12/2024 Travel 10/07/2024 Refill [facility] [address] [place] [address] Silvia Patton MD Pure hypercholesterolemia ; Benign essential hypertension 09/30/2024 Patient Outreach [facility] [address] [place] [address] [phone] Silvia Patton MD Pre-visit Planning (Pre visit planning LVM ) 08/26/2024 Population Health Risk Score [facility] () [address] [phone] Provider, Population Health Generic from Last 3 Months Immunizations Immunization Administration Dates Next Due Influenza injectable quadriv [...] the past 12 months, has t he [email or web address], gas, oil or water company threatened to [...] Description 01/19/2025 1:15 PM EDT Office Visit [facility] [address] [place] [address] Silvia Patton MD [address] [place] [address] Health Maintenance Due Date Last Done Comments CT Colonography 1960 Colonoscopy 1960 Colorectal Cancer Screening 1960 FIT DNA/Cologuard 1960 FIT 1960 FOBT 1960 HIV Screening 1960 Sigmoidoscopy 1960 Disability Screening 1960 Eye Exam 1970 Hepatitis C Screening 1978 Hepatitis A Vaccines (1 of 2 - Risk 2-dose series) 1979 Pneumococcal Vaccine: 50+ Years (1 of 2 - PCV) 1979 Zoster Vaccines (1 of 2) 2010 Hepatitis B Vaccines (1 of 3 - Risk 3-dose series) 2020 RSV Patients and Patients Aged 60 years or older (1 - Risk 60-74 years 1-dose series) 2020 DTaP/Tdap/Td Vaccines (2 - Td or Tdap) 01/12/2024 01/11/2014 COVID-19 Vaccine ( season) 2024 07/24/2021, 11/05/2020, 10/08/2020 Dental Oral Exam 06/25/2024 12/23/2023, , 11/23/2018, Additional history exists Dental Prophylaxis 06/25/2024 12/23/2023, 0 12/18/2022, 03/11/2022, Additional history exists Depression Screening 10/14/2024 10/15/2023, 10/15/19 Dental X-Ray: Bitewings 12/23/2024 12/23/19 24, 03/11/2022, 04/02/2020, Additional history exists Diabetes: Hemoglobin A1C 01/11/2025 025, 05/24/2024, 02/23/2024, Additional history exists Alcohol/Substance Use Screening 05/24/2025 05/24/2024 SDOH Screening 05/24/2025 05/24/2024 Tobacco Screening 06/10/2025 06/10/2024 Diabetes: Foot Exam 10/12/2025 10/12/2024, 10/12/2024, 10/12/2024, Additional history exists Diabetes: Urine Protein Screening 10/20/2025 10/20/2024, 07/24/2021, 10/05/2020, Additional history exists Lipid Panel 10/20/2025 10/20/2024, 03/0 12/2023, 11/28/2022, Additional history exists Dental X-Ray: Full Mouth [...] patient's age to complete this topic Meningococcal B Vaccine Aged Out No l onger eligible based on patient's age to complete [...] Procedure Name Priority Date/Time Associated Diagnosis Comments TSH W/REFLEX TO FT4 Routine 10/20/2024 1 1:34 AM EDT Screening for colon cancer Diabetes mellitus without complication (CMS/HCC) Benign essential hypertension HEPATIC FUNCTION PANEL Routine 10/20/2024 11:34 AM [...] mellitus without complication (CMS/HCC) Benign essential hypertension ALBUMIN, RANDOM URINE W/CREATININE Routine 10/20/2024 11:31 AM EDT Screening for colon cancer Diabetes [...] ESTABLISHED PATIENT Routine 12/23/2023 3:00 PM EDT from Last 3 Months or Most Recently Relevant to Health Maintenance Results * (ABNORMAL) Basic Metabolic Panel, Fasting (10/20/2024 11:34 AM EDT) Sodium 139 135 - 145 mmol/L [facility] Potassium 3.6 3.3 - 5.1 mmol/L [facility] Chloride 111(H) 96 - 108 mmol/L [facility] Carbon Dioxide 21(L) 22 - 29 mmol/L [facility] Anion Gap 11(L) 12 - 20 [facility] Urea Nitrogen (BUN) 25(H) 9 - 16 mg/dL [facility] Creatinine, Serum 0.93 0.5 - 1.4 mg/dL [facility] Estimated Glomerular Filt Rate >60 [facility] Comment:Chronic Kidney Disea se: Estimated GFR < 60 mL/min/[id number] Kidney Disease: Estimated GFR < 15 mL/min/1.73m2 Glucose Fasting 117(H) 60 - 99 mg/dL [facility] Comment:A fasting glucose fr om 100-125 mg/dl is considered impaired(pre-diabetes). Calcium 9.2 8.4 - 10.2 mg/dL [facility] Blood Venous blood specimen / Unknown 10/20/2024 11:34 AM EDT 10/20/2024 11:34 AM EDT us Silvia Patton MD LAB BLOOD ORDERABLES Final Re sult [facility] [address] [place] [address] [phone] * TSH W/Reflex to FT4 (10/20/2024 11:34 AM EDT) Pathologist [facility] TSH reflex Free T4 1.36 0.32 - 4.0 uIU/mL [facility] Blood Venous blood specimen / Unknown 10/20/2024 11:34 AM EDT 10/20/2024 11:34 AM EDT us Silvia Patton MD LAB BLOOD ORDERABLES Final Re sult Performing Organization Address [facility]/State/ZIP Co de Phone Number [facility] [address] [place] [phone] * (ABNORMAL) CBC auto differential (10/20/2024 11:34 AM EDT) [facility] White Blood Count 8.3 4.8 - 10.8 X10*3/uL [facility] Red Blood Count 4.74 4.60 - 5.80 X10*6/uL [facility] Hemoglobin 13.9(L) 14.0 - 18.0 g/dl [facility] Hematocrit 40.7(L) 42.0 - 52.0 % [facility] Mean Corpuscular Volume 85.9 80.0 - 98.0 fL [facility] Mean Corpuscular Hemoglobin 29.3 27.0 - 33.0 pg [facility] Mean Corpuscular HGB Conc 34.2 31.0 - 36.0 g/dl [facility] Red Cell Distribution Width 12.9 11.0 - 16.0 % [facility] Platelet Count 248 160 - 400 X10*3/uL [facility] Mean Platelet Volume 10.7 9.4 - 12.4 fL [facility] Neutrophils Percent Auto 68.4 45 - 73 % [facility] Imm Gran Pct Auto 0.6(H) 0.0 - 0.4 % [facility] Lymphocytes Percent Auto 20.2 20 - 40 % [facility] Monocytes Percent Auto 7.3 2 - 11 % [facility] Eosinophils Percent Auto 2.9 0 - 4 % [facility] Basophils Percent Auto 0.6 0 - 2 % [facility] NRBC Pct Auto 0.0 0.0 - 0.2 /100WBC [facility] Neutrophils Absolute Auto 5.7 2.0 - 8.3 x10*3/uL [facility] Imm Gran Abs Auto 0.05(H) 0.00 - 0.03 X10*3/uL [facility] Lymphocytes Absolute Auto 1.7 1.2 - 4.9 X10*3/uL [facility] Monocytes Absolute Auto 0.6 0.1 - 1.2 X10*3/uL [facility] Eosinophils Absolute Auto 0.2 0.0 - 0.4 X10*3/uL [facility] Basophils Absolute Auto 0.1 0.0 - 0.2 X10*3/uL [facility] NRBC Abs Auto 0.000 0.0 - 0.012 X10*3/uL [facility] Blood Venous blood specimen / Unknown 10/20/2024 11:34 AM EDT 10/20/2024 11:34 AM EDT Silvia Patton MD LAB BLOOD ORDERABLES Final Re sult Performing Organization Address City/[facility]/ZIP Co de Phone Number [facility] [address] [place], [place] [phone] * (ABNORMAL) Creatine Kinase, Total (10/20/2024 11:34 AM EDT) Creatine Kinase Total 511(H) 38 - 174 U/L [facility] Blood Venous blood specimen / Unknown 10/20/2024 11:34 AM EDT 10/20/2024 11:34 AM EDT Silvia Patton MD LAB BLOOD ORDERABLES Final Re sult [facility] [address] [place] [address] [phone] * (ABNORMAL) Hepatic Function Panel (10/20/2024 11:34 AM EDT) Bilirubin, Total 0.5 0.0 - 1.0 mg/dL [facility] Bilirubin, Direct 0.2 0.0 - 0.5 mg/dL [facility] Aspartate Amino Transferase 33 5 - 37 U/L [facility] Alanine Aminotransferase 45(H) 0 - 40 U/L [facility] Total Protein 7.2 6.5 - 8.0 g/dL [facility] Albumin Level 4.2 3.5 - 5.0 g/dL [facility] Alkaline Phosphatase 71 39 - 117 U/L [facility] Blood Venous blood specimen / Unknown 10/20/2024 11:34 AM EDT 10/20/2024 11:34 AM EDT us Silvia Patton MD LAB BLOOD ORDERABLES Final Re sult Performing Organization Address [facility] Co de Phone Number [facility] [address] [place] [phone] * Lipid Panel, Standard (10/20/2024 11:34 AM EDT) Triglycerides 76 <150 mg/dL [facility] Comment:Desirable Triglyceri de: less than 150 mg/dLBorderline High Triglyceride 150-199 mg/dLHigh Triglyceride: 200-499 mg/dLVery High Triglyceride: greater than or equal to 5OO mg/dL Cholesterol 125 <200 mg/dL [facility] Comment:Desirable Cholestero l: less than 200 mg/dLBorderline High Cholesterol: 200-239 mg/dLHigh Cholesterol: greater than 239 mg/dL LDL Cholesterol Calculated 66 <100 mg/dL [facility] Comment:Desirable LDL: less than 100 mg/dLNear Optimal/Above Optimal LDL: 110- 129 mg/dLBorderline High LDL: 130-159 mg/dLHigh LDL: 160-189 mg/dLVery High LDL: greater than or equal to 190 mg/dL HDL Cholesterol 44 >40 mg/dL [facility] Comment:Desirable HDL: great er than 40 mg/dL Note: This HDL assay may give artificially low results in patients with liver disease. Blood Venous blood specimen / Unknown 10/20/2024 11:34 AM EDT 10/20/2024 11:34 AM EDT Silvia Patton MD LAB BLOOD ORDERABLES Final Re sult Performing Organization Address [facility] de Phone Number [facility] [address] [place] [phone] * Albumin, Random Urine W/Creatinine (10/20/2024 11:31 AM EDT) Creatinine, Urine 132.83 mg/dL [facility] Microalbumin Urine 8.0 mg/L [facility] Microalbum Creatinine Ratio Ur 6.0 <30 ug/mg cr [facility] Comment:Albumin/Creatinine R atio Reference Ranges: Normal: < 30 ug/mg creatinine Microalbuminuria: 30 - 300 ug/mg creatinineClinical Albuminuria: > 300 ug/mg creatinine Urine (Urine, Random) 10/20/2024 11:31 AM EDT 10/20/2024 11:41 AM EDT Silvia Patton MD LAB URINE ORDERABLES Final Re sult Performing Organization Address [facility] Co de Phone Number [facility] [address] [place] [phone] * (ABNORMAL) POCT HGB A1C (10/12/2024 [...] Specific Antigen 1.40 <0.05 - 4.0 ng/mL [facility] Comment:PSA methodology: Martin Anderson i ChemiluminescentMicroparticle Immunoassay (CMIA) 10/11/2024 12:5 3 PM EDT 10/11/2024 12:53 PM EDT us Generic External Data Provider LAB BLOOD ORDERAB LES Final Result Performing Organization Address City/State/[facility] Co de Phone Number [facility] [address] [place] [phone] from Last [address] [facility] STANDARD MEDICARE Member Subscriber Plan / Payer (Ef fective 2022-Present) Name:Narayan Valdes A Member ID:[id number] Relation to Subscriber:Self Name:Narayan Valdes Subscriber ID:[id number] Payer ID:STATE Group ID:Not on file Type:Medicare Address: [facility].[address] [address] [place] AD[place] Care Teams Facilities Maintenance Manager Relationship Specialty Start Date End Date Silvia Patton MD [address] [place], [place] [address] [address] PCP - General Family Medicine 06/15/18
--- OUTSIDE RECORDS SUMMARY | 2024-11-02 10:25 | XMS_ITS | Encounter Summary ---
Author Organization [employer] Address [address] [facility] [address] [place] [address] Care Team Providers Care Technical Sales Representative Name Role Phone Silvia Patton MD Primary Care Provider [phone] Encounter Details Date Type Department Care Team ([facility] Contact Info) Description 11/01/2024 Orders Only [facility] [address] [place], [place] [phone] Silvia Patton MD [address] [place], [place] [phone] Elevated CPK (Primary Dx); Other atopic dermatitis Social History Tobacco Use Types Packs/Day Years [...] Description 01/19/2025 1:15 PM EDT Office Visit [facility] [address] [place] [address] Silvia Patton MD [address] [place] [address] Scheduled Orders Name Type Priority Associated Diagnoses Orde r Schedule Comprehensive Metabolic Panel Lab Routine Elevated CPK Expected: 11/01/2024 (Approximate), Expires: 11/01/2025 Aldolase Lab Routine Elevated CPK Expected: 11/01/2024 (Approximate), Expires: 11/01/2025 Creatine Kinase Isoenzymes (CK Isoenzymes) w/ Total CK Lab Routine Elevated CPK Other atopic dermatitis Expected: 11/01/2024 (Approximate), Expires: 11/01/2025 documented as of this encounter Visit Diagnoses Diagnosis Elevated CPK- Primary Other nonspecific abnormal serum enzyme levels Other atopic dermatitis documented in this encounter Additional Health Concerns Assessment Noted Time PHQ-9 Depression Total Score: 11 024 1:24 PM EDT documented as of this encounter Care Teams Technical Sales Representative Relationship Specialty Start Date End Date Silvia Patton MD [address] [place] [address] PCP - General Family Medicine 06/15/18 documented as of this encounter
--- OUTSIDE RECORDS SUMMARY | 2024-11-02 10:25 | XMS_ITS | Encounter Summary ---
Author Organization [employer] Address [address] [facility] [address] [place] [address] Care Team Providers Care Head Of Sales And Marketing Name Role Phone Silvia Patton MD Primary Care Provider [phone] Reason for Visit * Reason Comments Med Change Request Encounter Details Date Type Department Care Team ([facility] Contact Info) Description 01/01/[address] [facility] [address] [place], [place] [phone] Silvia Patton MD [address] [place] [address] Social History Tobacco Use Types Packs/Day Years [...] Upcoming Encounters Date Type Department Care Team ([facility] Contact Info) Description 01/19/2025 1:15 PM EDT Office Visit [facility] [address] [place] [address] Silvia Patton MD [address] [place] [address] documented as of this encounter Visit Diagnoses Not on filedocumented in this encounter Additional Health Concerns Assessment Noted Time PHQ-9 Depression Total Score: 2 07/04/19 23 9:12 AM EST documented as of this encounter Care Teams Head Of Sales And Marketing Relationship Specialty Start Date End Date Silvia Patton MD [address] [place] [address] PCP - General Family Medicine 06/15/18 documented as of this encounter
--- OUTSIDE RECORDS SUMMARY | 2024-11-02 10:25 | XMS_ITS | Encounter Summary ---
Author Organization [employer] Address [address] [facility] [address] [place] [address] Care Team Providers Care Client Specialist Name Role Phone Silvia Patton MD Primary Care Provider [phone] Reason for Visit * Reason Onset Date Comments shade 03/31/2023 Encounter Details Date Type Department Care Team ([facility] Contact Info) Description 03/31/2023 Telephone [facility] [address] [place], [place] [phone] Cheryl Rothman BDS shade Social History Tobacco [...] to when you called. But Christiano from [employer] is the rep that called in. If you would like to clarify with him * Telephone Encounter - Siena Fishman - 03/31/2023 2:42 PM EDT Christiano from [employer] called that they do not have a shade on case. Pls reach out to lab documented in this encounter Plan of Treatment Upcoming Encounters Date Type Department Care Team (Late st Contact Info) Description 01/19/2025 1:15 PM EDT Office Visit [facility] [address] [place] [address] Silvia Patton MD [address] [place] [address] documented as of this encounter Visit Diagnoses Not on filedocumented in this encounter Additional Health Concerns Assessment Noted Time PHQ-9 Depression Total Score: 2 07/04/19 23 9:12 AM EST documented as of this encounter Care Teams Client Specialist Relationship Specialty Start Date End Date Silvia Patton MD [address] [place] [phone] PCP - General Family Medicine 06/15/18 documented as of this encounter
[2024-11-02 11:00] LABS: Appearance Urine Clear; Color Urine Yellow; Glucose Urine UA Negative (Negative); Leukocyte Esterase Urine Negative (Negative); Nitrite Urine Negative (Negative); PH 6.5 (5.0-9.0); Specific Gravity - Urine 1.015 (1.005-1.025); Urine Blood Negative (Negative); Urine Ketones Negative (Negative); Urine Protein Negative (Neg-Trace)
[2024-11-02 12:21] LABS: Alanine Aminotransferase 49 U/L (0-40); Albumin Level 4.2 g/dL (3.5-5.0); Alkaline Phosphatase 66 U/L (39-117); Anion Gap 11 (12-20); Aspartate Amino Transferase 34 U/L (5-37); Bilirubin Total 0.5 mg/dL (0.0-1.0); Blood Urea Nitrogen 19 mg/dL (9-16); Carbon Dioxide 25 mmol/L (22-29); Chloride 107 mmol/L (96-108); Estimated Glomerular Filt Rate > 60; Glucose Random 127 mg/dL (60-115); Potassium 4.3 mmol/L (3.3-5.1); Sodium 139 mmol/L (135-145); Total Protein 7.3 g/dL (6.5-8.0); Vitamin D 25-OH Total 32.7 ng/mL (>30)
[2024-11-06 15:34] LABS: CK-BB None Detected (None Detected); CK-MB 2 % (<5); CK-MM 95 % (95-100); Creatine Kinase Isoenzyme Itrp MACRO CK TYPE 1; Creatine Kinase,Total,Serum 545 U/L (22-308)
[2024-11-06 20:39] LABS: Aldolase 6.7 U/L (<=8.1)
== END 2024-11-02 09:10 | disposition home or self-care (01) ==
LOC: HO.LAB 09:09
PROVIDERS: PCP Pediatrics; Visit Provider Pediatrics
DX: R74.8 Abnormal levels of other serum enzymes (principal); L20.89 Other atopic dermatitis; A18.0 Tuberculosis of bones and joints
CPT/HCPCS: 36415; 80053; 81003; 82085; 82306; 82550; 82552